=== PATIENT | female | born 1940 | race Caucasian/White ===

== ENCOUNTER 2020-07-26 11:18 | Observation (INO) | payer OTHER, MEDICARE ==
--- NOTE | 2020-07-26 12:15 | RAD REPORT ---
EXAM DESCRIPTION: CT - Head Brain Wo Cont - 07/26/2020 12:09 pm CLINICAL HISTORY: Double vision COMPARISON: None TECHNIQUE: Computed axial tomography of the head was obtained. IV contrast was not requested. All CT scans are performed using dose optimization technique as appropriate and may include automated exposure control or mA/KV adjustment according to patient size. FINDINGS: An intracranial bleed is not seen . The ventricles are normal in caliber. No extra-axial fluid collection is noted. Mild to moderate low-density areas within periventricular, deep and subcortical white matter likely r epresent ischemic changes secondary to small vessel disease. Fluid within the sinuses/ mastoids is not seen. IMPRESSION: No acute intracranial abnormality is seen. If patient's symptoms persist MRI of the bra in would be recommended.
[2020-07-26 15:54] LABS: Absolute Lymphocytes (CBC) 1.2 K/uL (0.7-4.9); Basophils % 0.9 % (0-1.3); Hematocrit 45.1 % (36.0-45.0); Lymphocytes % 19.6 % (15.3-44.8); MPV 8.4 fL (7.6-11.3); Protime INR 0.97; RBC Red Blood Cell Count 4.61 M/uL (3.86-4.86)
[2020-07-26 16:03] LABS: Albumin 3.9 g/dL (3.4-5.0); Bilirubin Direct 0.1 mg/dL (0-0.2); Bilirubin Total 0.4 mg/dL (0.2-1.0); C-Reactive Protein 5.14 mg/L (<3.00); Magnesium 2.5 mg/dL (1.8-2.4); Potassium 3.7 mmol/L (3.5-5.1); Protein, Total 7.8 g/dL (6.4-8.2)
--- NOTE | 2020-07-26 17:11 | EDPHYS ---
Physician Documentation [facility] Name: Rani Gonzáles Age: 80 yrs Sex: Female : 1940 Arrival Date: 07/26/2020 Time: 11:35 Bed 18 Private MD: Dayana Broderick ED Physician Lee Bowser HPI: 07/26 18:28 This 80 yrs old Female presents to ER via Ambulatory with complaints of jr8 Vision Problem - double. 18:28 Onset: The symptoms/episode began/occurred acutely, today, upon awakening this AM. jr8 Duration: the symptoms are continuous. Aggravated by nothing. Alleviated by nothing. Associated signs and symptoms: Pertinent positives: None. Patient wears glasses. Severity of symptoms: At their worst the symptoms were mild in the emergency department the symptoms are unchanged. The patient has not experienced similar symptoms in the past. The patient has not recently seen a physician. Historical: - Allergies: 11:56 Macrodantin; aa5 11:56 Ciprofloxacin; aa5 - PMHx: 11:56 Hypertension; Breast Cancer; Thyroid problem; aa5 - PSHx: 11:56 Breast biopsy; R lumpectomy; aa5 - Immunization history:: Adult Immunizations unknown. - Social history:: Smoking status: Patient denies any tobacco usage or history of. ROS: 18:28 Eyes: Negative for injury, pain, redness, and discharge, ENT: Negative for injury, jr8 pain, and discharge, Neck: Negative for injury, pain, and swelling, Cardiovascular: Negative for chest pain, palpitations, and edema, Respiratory: Negative for shortness of breath, cough, wheezing, and pleuritic chest pain, Abdomen/GI: Negative for abdominal pain, nausea, vomiting, diarrhea, and constipation, Back: Negative for injury and pain, MS/Extremity: Negative for injury and deformity, Skin: Negative for injury, rash, and discoloration. 18:28 Neuro: Positive for visual changes. Exam: 18:28 Visual Acuity: Visual acuity is within normal limits. jr8 18:28 Eyes: Pupils equal round and reactive to light, extra-ocular motions intact. Lids and lashes normal. Conjunctiva and sclera are non-icteric and not injected. Cornea within normal limits. Periorbital areas with no swelling, redness, or edema. ENT: Nares patent. No nasal discharge, no septal abnormalities noted. Tympanic membranes are normal and external auditory canals are clear. Oropharynx with no redness, swelling, or masses, exudates, or evidence of obstruction, uvula midline. Mucous membranes moist. Neck: Trachea midline, no thyromegaly or masses palpated, and no cervical lymphadenopathy. Supple, full range of motion without nuchal rigidity, or vertebral point tenderness. No Meningismus. Cardiovascular: Regular rate and rhythm with a normal S1 and S2. No gallops, murmurs, or rubs. Normal PMI, no JVD. No pulse deficits. Respiratory: Lungs have equal breath sounds bilaterally, clear to auscultation and percussion. No rales, rhonchi or wheezes noted. No increased work of breathing, no retractions or nasal flaring. Abdomen/GI: Soft, non-tender, with normal bowel sounds. No distension or tympany. No guarding or rebound. No evidence of tenderness throughout. Back: No spinal tenderness. No costovertebral tenderness. Full range of motion. Skin: Warm, dry with normal turgor. Normal color with no rashes, no lesions, and no evidence of cellulitis. MS/ Extremity: Pulses equal, no cyanosis. Neurovascular intact. Full, normal range of motion. 18:28 Neuro: Orientation: to person, place, time \\T\\ situation. Mentation: is normal, Memory: is normal, immediate memory is intact, recent memory is intact, remote memory is intact, Cranial nerves: CN I not tested, CN II- XII are normal as tested, visual mcguire are intact. lateral diplopia noted . extraocular movements are intact, Facial palsy and sensory deficits are absent. Nystagmus is absent. Speech is clear and appropriate. Cerebellar function: normal finger to nose testing, heel to balderas testing is normal, Motor: moves all fours, strength is 5/5 in all extremities, Sensation: no obvious gross deficits, seizure activity, is not displayed by the patient, Abnormal movements: there are no abnormal movements. Vital Signs: 11:54 BP 154 / 81; Pulse 80; Resp 18 S; Temp 97.6(TE); Pulse Ox 97% on R/A; Weight 68.04 kg aa5 (R); Height 5 ft. 6 in. (167.64 cm) (R); Pain 0/10; 15:45 BP 150 / 75; Pulse 88; Resp 16 S; Pulse Ox 97% on R/A; Pain 0/10; aa5 18:15 BP 146 / 66; Pulse 92; Resp 20 S; Pulse Ox 96% on R/A; ca1 19:15 BP 155 / 80; Pulse 94; Resp 16 S; Pulse Ox 96% on R/A; ca1 20:21 BP 145 / 82; Pulse 95; Resp 19 S; Pulse Ox 95% on R/A; ca1 11:54 Body Mass Index 24.21 (68.04 kg, 167.64 cm) aa5 MDM: 15:09 Patient medically screened. [facility] 18:32 Data reviewed: vital signs, nurses notes, lab test result(s), EKG, radiologic studies, [facility] CT scan. Data interpreted: Pulse oximetry: on room air is 96 %. Interpretation: normal. Counseling: I had a detailed discussion with the patient and/or guardian regarding: the historical points, exam findings, and any diagnostic results supporting the discharge/admit diagnosis, lab results, radiology results, the need for further work-up and treatment in the hospital. ED course: Dr. Valentine Consulted and agrees with plan . 07/26 15:08 Order name: Basic Metabolic Panel [facility] 07/26 15:08 Order name: CBC with Diff [facility] 07/26 15:08 Order name: LFT's [facility] 07/26 15:08 Order name: Magnesium [facility] 07/26 15:08 Order name: PT-INR [facility] 07/26 15:08 Order name: ESR [facility] 07/26 15:08 Order name: CRP; Complete Time: 16:39 [facility] 07/26 15:09 Order name: Basic Metabolic Panel; Complete Time: 16:39 EDMS 07/26 15:09 Order name: CBC with Automated Diff; Complete Time: 17:34 EDMS 07/26 15:09 Order name: Liver (Hepatic) Function; Complete Time: 16:39 EDMS 07/26 15:09 Order name: Magnesium; Complete Time: 16:39 EDMS 07/26 15:09 Order name: Protime (+INR); Complete Time: 16:39 EDMS 07/26 15:09 Order name: Sedimentation Rate, Westergren; Complete Time: 17:34 EDMS 07/26 18:52 Order name: COVID-19 : Document "Date of Symptom Onset" if Symptomatic. [facility] 07/26 11:57 Order name: CT Head Brain wo Cont; Complete Time: 15:07 aa5 07/26 15:08 Order name: EKG; Complete Time: 15:10 8 07/26 15:08 Order name: Cardiac monitoring; Complete Time: 15:58 8 07/26 15:08 Order name: EKG - Nurse/Tech; Complete Time: 15:58 8 07/26 15:08 Order name: IV Saline Lock; Complete Time: 15:39 jr8 07/26 15:08 Order name: Labs collected and sent; Complete Time: 15:39 [facility] 07/26 15:08 Order name: O2 Per Protocol; Complete Time: 15:40 8 07/26 15:08 Order name: O2 Sat Monitoring; Complete Time: 15:40 [facility] 07/26 19:23 Order name: CORONAVIRUS EDIA 07/26 20:38 Order name: SARS-COV-2 RT PCR; Complete Time: 21:22 EDMS Administered Medications: No medications were administered Disposition: 07/26/20 17:10 Hospitalization ordered by Attila Mancia for Observation. Preliminary diagnosis are Encounter for examination of eyes and vision with abnormal findings, Diplopia. - Bed requested for Telemetry/MedSurg (observation). - Status is Observation. ca1 - Condition is Stable. - Problem is new. - Symptoms are unchanged. Addendum: 07/28/2020 07:15 Co-signature as Attending Physician, Lee Bowser MD I agree with the assessment and k dr plan of care. Signatures: Dispatcher [employer] [facility] Lee Bowser MD MD [facility] Leana Bolanos, RN RN aa5 Young Oswald PA PA jr8 Griselda Meadows RN RN tl1 Deloris Garrett RN RN ca1 Corrections: (The following items were deleted from the chart) 07/26 18:23 17:10 Hospitalization Ordered by Red Menendez MD for Observation. Preliminary jr8 diagnosis is Encounter for examination of eyes and vision with abnormal findings; Diplopia. Bed requested for Telemetry/MedSurg (observation). Status is Observation. Condition is Stable. Problem is new. Symptoms are unchanged. jr8 20:45 18:23 07/26/2020 17:10 Hospitalization Ordered by Attila Mancia for Observation. tl1 Preliminary diagnosis is Encounter for examination of eyes and vision with abnormal findings; Diplopia. Bed requested for Telemetry/MedSurg (observation). Status is Observation. Condition is Stable. Problem is new. Symptoms are unchanged. jr8 21:33 20:45 07/26/2020 17:10 Hospitalization Ordered by Attila Mancia for Observation. ca1 Preliminary diagnosis is Encounter for examination of eyes and vision with abnormal findings; Diplopia. Bed requested for Telemetry/MedSurg (observation). Status is Observation. Condition is Stable. Problem is new. Symptoms are unchanged. tl1
--- NOTE | 2020-07-26 17:11 | ER ---
Nurse's Notes [facility] Name: Rani Gonzáles Age: 80 yrs Sex: Female : 1940 Arrival Date: 07/26/2020 Time: 11:35 Bed 18 Private MD: Dayana Broderick Diagnosis: Encounter for examination of eyes and vision with abnormal findings;Diplopia Presentation: 07/26 11:53 Chief complaint: Patient states: double vision that began this morning, pt states "I aa5 woke up with it". Pt denies any other symptoms. Coronavirus screen: Client denies travel out of the [place] in the last 14 days. Ebola Screen: Patient negative for fever greater than or equal to 101.5 degrees Fahrenheit, and additional compatible Ebola Virus Disease symptoms. Initial Sepsis Screen: Does the patient meet any 2 criteria? No. Patient's initial sepsis screen is negative. Does the patient have a suspected source of infection? No. Patient's initial sepsis screen is negative. Risk Assessment: Do you want to hurt yourself or someone else? Patient reports no desire to harm self or others. Onset of symptoms was July 2020. 11:53 Method Of Arrival: Ambulatory aa5 11:53 Acuity: RIKKI 3 aa5 Triage Assessment: 12:00 General: Appears comfortable, Behavior is calm, cooperative. Pain: Denies pain. EENT: aa5 No deficits noted. Neuro: Level of Consciousness is awake, alert, obeys commands, Oriented to person, place, time, situation, Weighmaster Lead are equal bilaterally Moves all extremities. Gait is steady, Facial symmetry appears normal, Pupils are PERRLA, Reports diplopia, Denies weakness dizziness, paresthesias headache. Cardiovascular: Heart tones S1 S2 present Rhythm is sinus rhythm with unifocal PVCs. Respiratory: Airway is patent Respiratory effort is even, unlabored, Respiratory pattern is regular, symmetrical. GI: Abdomen is round non-distended, Patient currently denies diarrhea, nausea, vomiting. : No signs and/or symptoms were reported regarding the genitourinary system. Derm: Skin is pink, warm \\T\\ dry. Musculoskeletal: Range of motion: intact in all extremities. Historical: - Allergies: 11:56 Macrodantin; aa5 11:56 Ciprofloxacin; aa5 - PMHx: 11:56 Hypertension; Breast Cancer; Thyroid problem; aa5 - PSHx: 11:56 Breast biopsy; R lumpectomy; aa5 - Immunization history:: Adult Immunizations unknown. - Social history:: Smoking status: Patient denies any tobacco usage or history of. Screenin:20 Abuse screen: Denies threats or abuse. Denies injuries from another. Nutritional ca1 screening: No deficits noted. Tuberculosis screening: No symptoms or risk factors identified. Fall Risk IV access (20 points). Assessment: 14:55 Reassessment: See triage note. No changes from triage, pt reports double vision is aa5 unchanged. . 15:35 Reassessment: Patient is alert, oriented x 3, equal unlabored respirations, skin aa5 warm/dry/pink. 17:00 Reassessment: Patient is alert, oriented x 3, equal unlabored respirations, skin aa5 warm/dry/pink. Awaiting for MRI, pt notified of wait time, approximately around 1800 today. . 18:25 Reassessment: Report given to EDMAR Puentes. aa 18:27 Reassessment: Patient appears in no apparent distress at this time. Patient and/or ca1 family updated on plan of care and expected duration. Pain level reassessed. Patient is alert, oriented x 3, equal unlabored respirations, skin warm/dry/pink. 19:26 Reassessment: Patient appears in no apparent distress at this time. Patient and/or ca1 family updated on plan of care and expected duration. Pain level reassessed. Patient is alert, oriented x 3, equal unlabored respirations, skin warm/dry/pink. 20:21 Reassessment: Patient appears in no apparent distress at this time. Patient and/or ca1 family updated on plan of care and expected duration. Pain level reassessed. Patient is alert, oriented x 3, equal unlabored respirations, skin warm/dry/pink. 20:46 Reassessment: called for report, nurse will call back. ca1 Vital Signs: 11:54 BP 154 / 81; Pulse 80; Resp 18 S; Temp 97.6(TE); Pulse Ox 97% on R/A; Weight 68.04 kg aa5 (R); Height 5 ft. 6 in. (167.64 cm) (R); Pain 0/10; 15:45 BP 150 / 75; Pulse 88; Resp 16 S; Pulse Ox 97% on R/A; Pain 0/10; aa5 18:15 BP 146 / 66; Pulse 92; Resp 20 S; Pulse Ox 96% on R/A; ca1 19:15 BP 155 / 80; Pulse 94; Resp 16 S; Pulse Ox 96% on R/A; ca1 20:21 BP 145 / 82; Pulse 95; Resp 19 S; Pulse Ox 95% on R/A; ca1 11:54 Body Mass Index 24.21 (68.04 kg, 167.64 cm) aa5 ED Course: 11:35 Patient arrived in ED. am2 11:36 Dayana Broderick is Private Physician. am2 11:52 Arm band placed on. aa5 11:54 Triage completed. aa5 12:00 Patient placed in waiting room, Patient notified of wait time. aa5 12:09 CT Head Brain wo Cont In Process Unspecified. EDMS 14:56 Leana Bolanos RN is Primary Nurse. aa5 15:07 Young Oswald PA is PHCP. jr8 15:07 Lee Bowser MD is Attending Physician. jr8 15:35 Initial lab(s) drawn, by nm, sent to lab. Inserted saline lock: 20 gauge in left aa5 antecubital area, using aseptic technique. Blood collected. 17:09 Red Menendez MD is Hospitalizing Provider. jr8 18:20 Patient has correct armband on for positive identification. Placed in gown. Bed in low ca1 position. Call light in reach. Side rails up X2. patient monitor on. Pulse ox on. NIBP on. Door closed. Noise minimized. Lights dimmed. Warm blanket given. 18:23 Attila Mancia is Hospitalizing Provider. jr8 19:22 COVID-19 : Document "Date of Symptom Onset" if Symptomatic. Sent. ca1 20:46 No provider procedures requiring assistance completed. Patient admitted, IV remains in ca1 place. Administered Medications: No medications were administered Outcome: 17:10 Decision to Hospitalize by Provider. jr8 20:46 Condition: stable ca1 20:46 Instructed on the need for admit. 21:11 Admitted to Med/surg accompanied by tech, via wheelchair, room 231, with chart, Report ca1 called to EDMAR Torre 21:33 Patient left the ED. ca1 Signatures: Dispatcher [employer] Leana Mancia, RN RN aa5 Young Oswald PA PA jr8 Petra Infante am2 Deloris Garrett RN RN ca1
[2020-07-26] MEDS ORDERED: ACETAMINOPHEN 500 MG TAB PO PRN (21:30)
[2020-07-26] MEDS ORDERED: ONDANSETRON 4 MG/2 ML VIAL IV PRN (21:30)
[2020-07-26 21:43] VITALS: BMI 23.2
[2020-07-26 22:50] LABS: Thyroid Stimulating Hormone 7.64 uIU/mL (0.360-3.740)
--- NOTE | 2020-07-27 01:29 | P.HP ---
Certification for Inpatient Patient admitted to: Observation With expected LOS: <2 Midnights Patient will require the following post-hospital care: None Practitioner: I am a practitioner with admitting privileges, knowledge of patient current condition, hospital course, and medical plan of care. Services: Services provided to patient in accordance with Admission requirements found in Title 42 Section 412.3 of the Code of Federal Regulations <James Grande Angie - Last Filed: 07/27/20 01:24> Patient History Date of Service: 07/26/20 Primary Care Provider: Omari Reason for admission: double vision History of Present Illness: Ms. Gonzáles is an 80 yo F with HTN, hypothyroidism, COPD, history of breast canc er here today because she woke up this morning with double vision. She says there was no improvement with wearing her glasses. She denies systemic symptoms, weakness, dysphasia or dysarthria, headache, stiffness, claudication, night sweats, chills, cough, dizziness, tinnitus, pain with mastication, or difficulty with her balance. She says she has to walk more carefully and is currently seeing double. CT Head was wnl. ESR wnl. CRP 5.14. Home medications list reviewed: Yes - Past Medical/Surgical History Has patient received pneumonia vaccine in the past: Yes Diabetic: No -: BREAST CA; -: TACHYCARDIA -: High blood pressure -: Hypothyroidism -: Mild COPD -: Hemachromatosis -: BREAST BIOPSY -: Right breast lumpectomy -: Gallbladder removal - Family History Brother -: Heart disease, Lung disease, Diabetes, Cancer Notes: Lung Ca, Myasthenia Gravis Father -: Lung disease, Cancer Notes: Lung Ca - Social History Smoking Status: Never smoker Alcohol use: No CD- Drugs: No Caffeine use: Yes Place of Residence: Home <James Grande - Last Filed: 07/27/20 01:24> Date of Service: 07/28/20 <marvin lea - Last Filed: 07/28/20 18:36> Allergies ciprofloxacin Allergy (Verified 07/26/20 22:31) seecom nitrofurantoin macrocrystal [From Macrodantin] Allergy (Verified 06/11/15 23:54) Nausea/Vomiting Home Medications: Verapamil HCl [Calan] 240 mg PO DAILY 08/21/11 Acetaminophen with Codeine [Acetaminophen-Cod #4 Tablet] 1 each PO PRN PRN 07/26/20 Amlodipine [Norvasc*] 5 mg PO DAILY 07/26/20 Anastrozole 1 mg PO DAILY 07/26/20 Levothyroxine [Synthroid*] 112 mcg PO [id number] 07/26/20 Venlafaxine HCl [Venlafaxine HCl ER] 75 mg PO DAILY 07/26/20 hydroCHLOROthiazide [Hydrochlorothiazide] 25 mg PO Q48H 07/26/20 predniSONE [Deltasone] 20 mg PO DAILY #50 tab 07/27/20 Review of Systems General: Unremarkable Eyes: Vision Change, As per HPI ENT: Unremarkable Respiratory: Unremarkable Cardiovascular: Unremarkable Gastrointestinal: Unremarkable Genitourinary: Unremarkable Musculoskeletal: Unremarkable Integumentary: Unremarkable Neurological: Unremarkable Lymphatics: Unremarkable <James Grande - Last Filed: 07/27/20 01:24> Physical Examination - Vital Signs Temperature: 97.7 F Blood Pressure: 184/94 Pulse: 88 Respirations: 18 Pulse Ox (%): 94 - Physical Exam General: Alert, In no apparent distress, Oriented x3, Cooperative HEENT: Atraumatic, Normocephalic, PERRLA, Mucous membr. moist/pink, Other (EOM intact, no nystagmus, no dizziness or vertigo with movement, no tenderness over temporal artery), EOMI, Sclerae nonicteric Neck: Supple, 2+ carotid pulse no bruit, JVD not distended, No Thyromegaly, No LAD Respiratory: Clear to auscultation bilaterally, Normal air movement Cardiovascular: No edema, Normal pulses, Regular rate/rhythm, Normal S1 S2, No gallops, No rubs, No murmurs Capillary refill: <2 Seconds Gastrointestinal: Normal bowel sounds, Soft and benign, Non-distended, No ascites, No tenderness, No masses, No rebound, No guarding Musculoskeletal: No clubbing, No swelling, No contractures, No erythema, No tenderness, No warmth Integumentary: No rashes, No breakdown, No significant lesion, No tenderness/swelling, No erythema, No warmth, No cyanosis Neurological: Normal speech, Normal strength at 5/5 x4 extr, Normal tone, Sensation intact, Cranial nerves 3-12 intact, Normal affect Lymphatics: No axilla or inguinal lymphadenopathy - Studies Laboratory Data (last 24 hrs) 07/26/20 15:35: PT 11.2, INR 0.97 07/26/20 15:35: WBC 6.10, Hgb 15.1 H, Hct 45.1 H, Plt Count 176 07/26/20 15:35: Sodium 139, Potassium 3.7, BUN 19 H, Creatinine 0.91, Glucose 91, Magnesium 2.5 H, Total Bilirubin 0.4, AST 13 L, ALT 19, Alkaline Phosphatase 76 <James Grande - Last Filed: 07/27/20 01:24> Assessment and Plan - Problems (Diagnosis) (1) Hypertension Status: Chronic Qualifiers: Hypertension type: essential hypertension Qualified Code(s): I10 - Essent ial (primary) hypertension (2) Hypothyroidism Status: Chronic Qualifiers: Hypothyroidism type: unspecified Qualified Code(s): E03.9 - Hypothyroidism, unspecified (3) HX: breast cancer Status: Chronic (4) COPD (chronic obstructive pulmonary disease) Status: Chronic Qualifiers: COPD type: unspecified COPD Qualified Code(s): J44.9 - Chronic obstructive pulmonary disease, unspecified (5) Double vision Status: Acute - Plan neurology consulted MRI and MRA Head scheduled for the morning ESR wnl, CRP 5.14 will reconcile and continue home medications Discharge Plan: Home Plan to discharge in: 24 Hours - Advance Directives Does patient have a Living Will: Yes Does patient have a Durable POA for Healthcare: Yes - Code Status/Comfort Care Code Status Assessed: Yes (full code) Critical Care: No Time Spent Managing Pts Care (In Minutes): 70 <James Grande - Last Filed: 07/27/20 01:24> - Problems (Diagnosis) (1) Double vision Status: Acute (2) COPD (chronic obstructive pulmonary disease) Status: Chronic Qualifiers: COPD type: unspecified COPD Qualified Code(s): J44.9 - Chronic obstructive pulmonary disease, unspecified (3) Hypertension Status: Chronic Qualifiers: Hypertension type: essential hypertension Qualified Code(s): I10 - Essential (primary) hypertension (4) Hypothyroidism Status: Chronic Qualifiers: Hypothyroidism type: unspecified Qualified Code(s): E03.9 - Hypothyroidism, unspecified Physician Review: Patient Assessed, Agree with Above Assessment and Plan Physician Review Additional Text: Double vision Plan: MRI of the brain to r/o CVA. Neurology consult. <marvin lea - Last Filed: 07/28/20 18:36>
[2020-07-27] MEDS ORDERED: hydroCHLOROthiazide 25 MG TAB PO SCH ×2 (02:00→09:00)
[2020-07-27 04:00] LABS: Urine Appearance CLEAR (Clear); Urine Bilirubin NEGATIVE (Negataive); Urine Blood NEGATIVE (Negative); Urine Color YELLOW (Yellow); Urine Glucose NEGATIVE (Negative); Urine Protein NEGATIVE (Negative); Urine Urobilinogen 0.2 mg/dL (0.2-1.0); Urine pH 7.5 (5.0-7.0)
[2020-07-27 04:06] LABS: Urine Microscopic Reflex NO UMIC
[2020-07-27 05:49] LABS: Absolute Lymphocytes (CBC) 0.8 K/uL (0.7-4.9); Basophils % 0.7 % (0-1.3); Hematocrit 42.3 % (36.0-45.0); Lymphocytes % 13.1 % (15.3-44.8); MPV 8.3 fL (7.6-11.3); RBC Red Blood Cell Count 4.34 M/uL (3.86-4.86)
[2020-07-27] MEDS ORDERED: LEVOTHYROXINE SOD 0.112 MG TAB PO SCH (06:00)
[2020-07-27 06:07] LABS: Albumin 3.4 g/dL (3.4-5.0); Bilirubin Total 0.4 mg/dL (0.2-1.0); Magnesium 2.4 mg/dL (1.8-2.4); Phosphorus 2.1 mg/dL (2.5-4.9); Potassium 3.6 mmol/L (3.5-5.1); Protein, Total 6.8 g/dL (6.4-8.2)
[2020-07-27] MEDS ORDERED: POTASSIUM 25 MEQ EFFERV TAB PO ONE (06:32)
[2020-07-27] MEDS: POTASS/SODIUM PHOSPHATE 1 PKT POWD.PACK PO SCH ×3 (08:10→11:33)
--- NOTE | 2020-07-27 08:38 | RAD REPORT ---
EXAM DESCRIPTION: MRI - Brain Wo Cont - 07/27/2020 7:04 am CLINICAL HISTORY: double vision, stroke-like symptoms COMPARISON: Head Brain Wo Cont dated 07/26/2020 TECHNIQUE: Sagittal T1-weighted images were obtained along with axial PD, heavily T2-weighted and T2 -FLAIR images. Axial DWI and ADC mapping sequences were also obtained along with coronal heavily T2-w eighted images. FINDINGS: No intracranial hemorrhage, mass or acute infarction. There is no edema or shift of midlin e structures. No extra-axial fluid collections. Cabezas-matter/white matter junction is preserved. Signa l voids are seen as a normal finding in the major intracranial vessels. No significant cerebellum atrophy. Cerebral hemispheres show moderate volume loss. Ventricles are in proportion. Numerous T2 signal abnormalities are scattered in the cerebral white matter typical for a mild to moderate chronic ischemic etiology. Chronic ischemic changes seen in the brainstem. Basal ga nglia and thalamus tissues are generally spared. Mastoid air cells and paranasal sinuses are clear. No globe or orbital content acute finding. Patient has pronounced hyperostosis frontalis interna. This is a normal variant. IMPRESSION: No infarction changes seen. No mass, hemorrhage or acute intracranial finding identified . Moderate atrophy and mild to moderate chronic ischemic change present.
--- NOTE | 2020-07-27 08:41 | RAD REPORT ---
EXAM DESCRIPTION: MRI - MRA Head Wo Cont - 07/27/2020 7:04 am CLINICAL HISTORY: CVA, double vision COMPARISON: MRI brain same date, CT head July 22 TECHNIQUE: Axial and coronal 3D [id number] image acquisition was performed. 3D rotational images were generated with source and reconstruction images reviewed. Horizontal and vertical axis rotation al views generated using MIP protocol. FINDINGS: No aneurysm or vascular malformation identifiable. Basilar artery is quite tortuous but ot herwise unremarkable. Mild to moderate atherosclerotic changes are seen in the far peripheral branche s of the bilateral anterior cerebral and middle cerebral artery distributions. Similar disease seen i n the posterior cerebral arteries. Patient has a large left posterior communicating artery providing the majority of the flow to the left DIAMOND EXPERT. No dissection change. No named branch occlusion. IMPRESSION: Intracranial atherosclerotic changes are present but no named branch occlusion or high-g rade stenosis identifiable.
[2020-07-27] MEDS ORDERED: VENLAFAXINE HCL XR 75 MG CAP PO SCH (09:00)
[2020-07-27] MEDS ORDERED: ANASTROZOLE 1 MG TAB PO SCH (09:00)
[2020-07-27] MEDS ORDERED: AMLODIPINE 5 MG TAB PO SCH (09:00)
[2020-07-27] MEDS ORDERED: VERAPAMIL HCL 120 MG TAB PO SCH (09:00)
[2020-07-27 09:42] VITALS: O2SAT 91
[2020-07-27 12:30] VITALS: BP 127/67; TEMP 97.6
--- NOTE | 2020-07-27 12:47 | EKG ---
Test Date: 2020-07-26 Test Time: 15:50:05 Machine Wedger: KEVIN MEASUREMENT RESULTS: Intervals: Rate: 92 MO: 160 QRSD: 76 QT: 464 QTc: 573 [place]: P: 19 MO: 160 QRS: 18 T: 81 INTERPRETIVE STATEMENTS: Sinus rhythm with premature supraventricular complexes with occasional premature ventricular complexes Moderate voltage criteria for LVH, may be normal variant Possible Inferior infarct, age undetermined Prolonged QT Abnormal ECG Compared to ECG 06/11/2015 17:46:14 Atrial premature complex(es) now present Ventricular premature complex(es) now present Prolonged QT interval now present ST (T wave) deviation no longer present Possible ischemia no longer present Myocardial infarct finding still present Electronically Signed On 07-27-20 12:45:31 CDT by Vineet Goel
--- NOTE | 2020-07-27 13:50 | CON ---
Reason For Consultation: Consultation called by Dr. Mancia, the hospitalist because of double vision and possible stroke. History Of Present Illness: Ms. Gonzáles is an 80-year-old right-handed patient, hypertensio n, hypothyroidism, COPD, breast cancer, and she actually recently received a second COVID shot 1 week ago. She said she woke up yesterday morning and noted double vision. She actually had an eye exam recently and was to get new glasses and has not yet got new glasses and thought perhaps that was a co ntributing factor. However, the patient did not improve. She kept seeing double and had some diffic ulty walking because of her diplopia. It did occur more to the right than the left. At [facility], she was found to be out of any window for possible tPA given that it occurred after she woke up and that was the night before and she got there around midday to the hospital. Had a head CT sca n that was negative for any acute ischemic or hemorrhagic change. She was admitted for a possible st roke workup. Her brain MRI done today showed no acute ischemic or hemorrhagic change. MRA of the br ain showed no significant abnormalities in the wiyot of [place]. Her blood work showed essentially a n unremarkable complete blood count with differential. Coagulation panel was normal. Chemistries re markable for mild dehydration. Her thyroid-stimulating hormone level was elevated at 7.64. Liver fu nction studies unremarkable. Urinalysis was negative. COVID-19 negative. Allergies: CIPROFLOXACIN, NITROFURANTOIN. Home Medications: Verapamil 240 mg daily, Tylenol No.4 one every 4 hours as needed, Norvasc 5 mg erica ly, anastrozole 1 mg daily, Synthroid 112 mcg daily, venlafaxine 75 mg daily, hydrochlorothiazide 25 mg 1 every 2 days. Surgical History: Right breast lumpectomy and cholecystectomy. Family History: Heart disease, lung disease, diabetes and cancer along with myasthenia gravis in bro ther and father with lung disease and cancer. Social History: No current alcohol use. No tobacco use and no IV drug use. Review of Systems: Aside from mentioned, she denies any fevers, chills, nausea, vomiting, myalgias, or arthralgias. No rash, headache, weight change. No psychiatric complaints. No genitourinary or gastrointestinal comp laints. Physical Examination: Vital Signs: Blood pressure 151/92, pulse 74, respiratory rate 14, temperature 97.8, oxygen saturati on 91% on room air. Weight 144 pounds, height 5 feet 6 inches, BMI 23.3. General: Ms. Gonzáles is lying in bed, in no acute distress. HEENT: She is normocephalic, atraumatic. Sclerae anicteric. Oropharynx is moist and pink. Neck: Supple. Chest: Clear. Heart: Regular. Extremities: Show no edema, cyanosis, or clubbing. Neurological: She is alert and oriented to person, place, time, and situation. On cranial nerve exa mination, she has a right lateral rectus palsy. She sees double vision when looking to the right and when covering the right eye, the outer image goes away consistent with a right lateral rectus palsy. She has a resolution of diplopia when looking to the left and no significant diplopia up or down. Otherwise, her cranial nerves 2 through 12 are intact. Motor examination is full strength in upper a nd lower extremities at 5/5. Sensation, mild stocking-glove loss in the arms and legs. Reflexes dep ressed, but symmetric in upper and lower extremities. Coordination is intact in upper and lower extr emities. Gait, she has good stance, stride, and arm swing, slightly unsteady due to the diplopia whe n ambulating. She can ambulate with just standby assistance over 250 feet with no difficulty. Assessment: Ms. Gonzáles is an 80-year-old patient with a right lateral rectus palsy 1 week after rece iving the second COVID shot. She also has a history of breast cancer, reported allergies and hypothy roidism. She does not have diabetes mellitus. It is unclear the etiology of her right lateral rectu s palsy. It is possible it is an autoimmune mediated phenomena, perhaps after receiving the COVID sh ot. Plan: 1.She may be given steroids on a tapering course starting at 20 mg daily and taper over 2 weeks. Flor rothman should have aggressive management of her hypertension. Also, her thyroid-stimulating hormone level is elevated that may be fully evaluated with a thyroid panel and treated appropriately. She may nee d an adjustment of her thyroid dosage. 2.She may be discharged home today and call Dr. Valentine's clinic on Thursday for a followup appointme nt within a month. LB/MODL Voice ID: [id number] Report ID: [id number]
--- NOTE | 2020-07-27 14:47 | P.DS ---
Admission Date: 07/26/20 Discharge Date: 07/27/20 Primary Care Provider: Omari Disposition: ROUTINE DISCHARGE Discharge Condition: FAIR Reason for Admission: double vision Consultations: Neurology-Dr. Valentine - Problems (1) Double vision Current Visit: Yes Status: Acute (2) COPD (chronic obstructive pulmonary disease) Current Visit: Yes Status: Chronic Qualifiers: COPD type: unspecified COPD Qualified Code(s): J44.9 - Chronic obstructive pulmonary disease, unspecified (3) Hypertension Current Visit: Yes Status: Chronic Qualifiers: Hypertension type: essential hypertension Qualified Code(s): I10 - Essential (primary) hypertension (4) Hypothyroidism Current Visit: Yes Status: Chronic Qualifiers: Hypothyroidism type: unspecified Qualified Code(s): E03.9 - Hypothyroidism, unspecified Brief History of Present Illness: 80 yo F with HTN, hypothyroidism, COPD, history of breast cancer presented to the ED because of sudden onset of double vision which did not correct with her glasses. She denied any fever or chills, weakness, dysphasia or dysarthria, headache or neck stiffness, or claudication, night sweats, dizziness, tinnitus, pain with mastication. She says she has to walk more carefully because of the double vision. CT Head was wnl. ESR wnl. CRP 5.14. Patient was hospitalized for stroke rule out. Hospital Course: Patient placed under observation. MRI of the brain, MRA of the head and neck done were all unremarkable. No acute CVA. She was seen and evaluated by Dr. Valentine-neurology who made the diagnosis of right lateral rectus palsy and suspect possible autoimmune reaction. Noted patient had her COVID 19 vaccination recently and per neurology, the extraocular muscle weakness could be related the vaccine. Dr. Valentine recommended a tapering dose of prednisone and deemed the patient stable for discharge. TSH was slightly elevated. Patient to follow with her PCP for full workup and Synthroid dose adjustment. Vital Signs/Physical Exam: Temp Pulse Resp BP Pulse Ox 97.6 F 74 17 127/67 94 07/27/20 12:00 07/27/20 12:00 07/27/20 12:00 07/27/20 12:00 07/27/20 12:00 General: Alert, In no apparent distress, Oriented x3 HEENT: Normocephalic Neck: Supple, JVD not distended Respiratory: Clear to auscultation bilaterally, Normal air movement Cardiovascular: No edema, Regular rate/rhythm, Normal S1 S2 Gastrointestinal: Soft and benign, Non-distended Musculoskeletal: No swelling Integumentary: No rashes Neurological: Normal strength at 5/5 x4 extr, Cranial nerves 3-12 intact Laboratory Data at Discharge: WBC 5.80 K/uL (4.3-10.9) 07/27/20 05:28 Hgb 14.5 g/dL (12.0-15.0) 07/27/20 05:28 Hct 42.3 % (36.0-45.0) 07/27/20 05:28 Plt Count 165 K/uL (152-406) 07/27/20 05:28 PT 11.2 SECONDS (9.5-12.5) 07/26/20 15:35 INR 0.97 07/26/20 15:35 Sodium 142 mmol/L (136-145) 07/27/20 05:28 Potassium 3.6 mmol/L (3.5-5.1) 07/27/20 05:28 BUN 15 mg/dL (7-18) 07/27/20 05:28 Creatinine 0.76 mg/dL (0.55-1.3) 07/27/20 05:28 Glucose 98 mg/dL (74-106) 07/27/20 05:28 Phosphorus 2.1 mg/dL (2.5-4.9) L 07/27/20 05:28 Magnesium 2.4 mg/dL (1.8-2.4) 07/27/20 05:28 Total Bilirubin 0.4 mg/dL (0.2-1.0) 07/27/20 05:28 AST 12 U/L (15-37) L 07/27/20 05:28 ALT 17 U/L (12-78) 07/27/20 05:28 Alkaline Phosphatase 67 U/L (45-117) 07/27/20 05:28 Home Medications: Verapamil HCl [Calan] 240 mg PO DAILY 08/21/11 Acetaminophen with Codeine [Acetaminophen-Cod #4 Tablet] 1 each PO PRN PRN 0 07/26/20 Amlodipine [Norvasc*] 5 mg PO DAILY 07/26/20 Anastrozole 1 mg PO DAILY 07/26/20 Levothyroxine [Synthroid*] 112 mcg PO [id number] 07/26/20 Venlafaxine HCl [Venlafaxine HCl ER] 75 mg PO DAILY 07/26/20 hydroCHLOROthiazide [Hydrochlorothiazide] 25 mg PO Q48H 07/26/20 predniSONE [Deltasone] 20 mg PO DAILY #50 tab 07/27/20 New Medications: predniSONE [Deltasone] 20 mg PO DAILY #50 tab Diet: AHA Activity: Fall precautions Followup: Dayana Ruff PAC [Primary Care Provider] - 1-2 Weeks Nile Valentine MD [ASSOCIATE-ACTIVE - CAN ADMIT] - (within 2 weeks.)
== END 2020-07-27 16:20 | disposition home or self-care (01) ==
LOC: ER 11:18 → ERHOLD 20:44 → 2ND 21:12
PROVIDERS: ADMIT Internal Medicine; ATTEND Internal Medicine
DX: H53.2 Diplopia (principal); J44.9 Chronic obstructive pulmonary disease, unspecified; I10 Essential (primary) hypertension; E03.9 Hypothyroidism, unspecified; Z85.3 Personal history of malignant neoplasm of breast; E83.119 Hemochromatosis, unspecified; Z20.822 Contact with and (suspected) exposure to COVID-19; R94.31 Abnormal electrocardiogram [ECG] [EKG]
CPT/HCPCS: 93005; 85025 ×2; 80048; 36415; 83735 ×2; 84100; 85610; 80076; 85652; 84443; 81003; 84439; 80053; 86140; 70450; 70551; 70544; 97162; 94760; 99285; U0003; G0378

== ENCOUNTER 2021-01-18 11:10 | Inpatient (IN) | payer OTHER, MEDICARE ==
[2021-01-18 12:16] LABS: Absolute Lymphocytes (CBC) 0.8 K/uL (0.7-4.9); Basophils % 0.1 % (0-1.3); Hematocrit 41.2 % (36.0-45.0); Lymphocytes % 6.3 % (15.3-44.8); MPV 7.8 fL (7.6-11.3); RBC Red Blood Cell Count 4.23 M/uL (3.86-4.86)
[2021-01-18 12:22] LABS: Protime INR 1.15
--- NOTE | 2021-01-18 12:26 | RAD REPORT ---
EXAM DESCRIPTION: RAD - Chest Single View - 01/18/2021 12:18 pm CLINICAL HISTORY: Cough;Dyspnea COMPARISON: Chest Pa And Lat (2 Views) dated 11/25/2017; CHEST SINGLE VIEW dated 06/12/2015; CHEST SING LE VIEW dated 08/22/2011 FINDINGS: Lines: None. Lungs: Worsened multifocal airspace disease, more confluent in the left mid lung. In particular, ther e is a masslike opacity in the left mid lung measuring approximately 2.1 cm. Pleural: No significant pleural effusions or pneumothorax. Cardiac: Cardiomegaly. Bones: No acute fractures. Other: Surgical clips in the right axilla. IMPRESSION: Increasing bilateral airspace disease concerning for multifocal pneumonia. Recommend fol low up chest radiography to ensure resolution of a more masslike left mid lung opacity.
[2021-01-18 12:34] LABS: Albumin 3.4 g/dL (3.4-5.0); Bilirubin Direct 0.3 mg/dL (0-0.2); Protein, Total 7.8 g/dL (6.4-8.2); Troponin (Emerg Dept Use Only) 0.13 ng/mL (0.0-0.045)
[2021-01-18 12:35] LABS: Potassium 2.8 mmol/L (3.5-5.1)
[2021-01-18] MEDS ORDERED: LEVALBUTEROL 1.25 MG/3 ML NEB ONE (12:49)
[2021-01-18] MEDS ORDERED: METHYLPREDNISOLONE 125 MG INJ ONE (12:49)
[2021-01-18] MEDS ORDERED: NA CHLORIDE 0.9% 500 ML ONE (12:50)
[2021-01-18] MEDS ORDERED: MAGNESIUM SULFATE 1 gm IVPB 1 GM/100 ML BAG IV ONE (12:50)
[2021-01-18] MEDS ORDERED: NA CHLORIDE 0.9% 100 ML ONE (14:01)
[2021-01-18] MEDS ORDERED: PIPERACIL/TAZO 3.375 GM VIAL IV ONE (14:02)
--- NOTE | 2021-01-18 15:12 | ER ---
Nurse's Notes [facility] Name: Rani Gonzáles Age: 80 yrs Sex: Female : 1940 Arrival Date: 01/18/2021 Time: 11:12 Bed 18 Private MD: Vineet Goel S; Garrison, Sabrina Diagnosis: Pneumonia, unspecified organism-Multifocal;Hypoxemia;Sepsis, unspecified organism Presentation: 01/18 11:18 Chief complaint: Patient states: Cough, congestion, SOB, fever since Thursday night. ll1 Went to [place] today, was found to have low oxygen, so they declined to see her. She came here for eval. Coronavirus screen: Vaccine status: Patient reports receiving the 2nd dose of the covid vaccine. Client denies travel out of the [place] in the last 14 days. congestion, cough unrelated to allergies, difficulty breathing, fatigue, fever, nausea, shortness of breath, sore throat, loss of taste or smell, Client presents with at least one sign or symptom that may indicate coronavirus-19. Standard/surgical mask placed on the client. Ebola Screen: Patient denies travel to an Ebola-affected area in the 21 days before illness onset. Initial Sepsis Screen: Does the patient meet any 2 criteria? RR > 20 per min. HR > 90 bpm. No. Patient's initial sepsis screen is negative. Does the patient have a suspected source of infection? Yes: Productive cough/pneumonia. Risk Assessment: Do you want to hurt yourself or someone else? Patient reports no desire to harm self or others. Onset of symptoms was January 16, 2021. 11:18 Acuity: RIKKI 2 ll1 11:18 Method Of Arrival: Wheelchair ll1 Historical: - Allergies: 11:18 Ciprofloxacin; ll1 11:18 Macrodantin; ll1 - PMHx: 11:18 Hypertension; breast cancer; Thyroid problem; ll1 - Immunization history:: Client reports receiving the 2nd dose of the Covid vaccine. - Social history:: Smoking status: Patient denies any tobacco usage or history of. - Family history:: not pertinent. - Hospitalizations: : No recent hospitalization is reported. Screenin:03 Abuse screen: Denies threats or abuse. Denies injuries from another. Nutritional tc5 screening: No deficits noted. Tuberculosis screening: No symptoms or risk factors identified. Fall Risk Gait- Weak (10 pts.). Assessment: 15:02 Pain: Unable to use pain scale. pt reports pain all over, unable to rate. Neuro: No tc5 deficits noted. Cardiovascular: No deficits noted. Respiratory: Reports shortness of breath at rest on exertion. GI: Reports nausea. : No deficits noted. 15:53 General: pt sitting up in bed eating, no needs expressed, states she is feeling better, tc5 son at bedside no needs at this time.. Vital Signs: 11:18 BP 153 / 92; Pulse 115; Resp 24; Temp 98.9; Pulse Ox 88% on R/A; Weight 65.77 kg; ll1 Height 5 ft. 6 in. (167.64 cm); Pain 0/10; 15:02 BP 141 / 58; Pulse 111; Resp 18; Pulse Ox 94% 4 lpm ; tc5 15:53 BP 139 / 87; Pulse 111; Resp 16; Pulse Ox 92% 4 lpm ; tc5 11:18 Body Mass Index 23.40 (65.77 kg, 167.64 cm) ll1 ED Course: 11:12 Patient arrived in ED. as 11:12 Dayana Broderick is Private Physician. as 11:12 Vineet Goel MD is Private Physician. as 11:18 Arm band placed on Patient placed in an exam room, on a stretcher. ll1 11:20 Triage completed. ll1 11:20 Oxygen sat. 81-83% on RA after getting from wheelchair onto bed. Dr. Waldron at bedside. ll1 O2 2L NC applied, sat up to 84%. O2 to 3L NC, sat up to 88%. Dr. Waldron informed. 11:20 Patient sepsis alert called overhead. ll1 11:22 Kyle Waldron MD is Attending Physician. rn 11:23 Aide Villafuerte RN is Primary Nurse. tc5 12:17 CXR XRAY In Process Unspecified. EDMS 13:25 Inserted saline lock: 20 gauge in left antecubital area, using aseptic technique. Blood dh4 collected. 15:11 Leopodlo Waldron MD is Hospitalizing Provider. rn Administered Medications: 12:35 Drug: SOLU-Medrol (methylPrednisoLONE) 125 mg Route: IVP; Site: left forearm; tc5 19:51 Follow up: Response: No adverse reaction sj1 12:35 Drug: NS 0.9% 500 ml Route: IV; Rate: bolus; Site: left forearm; tc5 12:35 Drug: Xopenex (levalbuterol) (3) 1.25 mg Route: Inhalation; tc5 12:35 Drug: Magnesium Sulfate 1 grams Route: IVPB; Infused Over: 1 hrs; Site: right tc5 antecubital; 13:43 Drug: Zosyn (piperacillin-tazobactam) 3.375 grams Route: IVPB; Infused Over: 60 mins; tc5 Site: right antecubital; 15:01 Follow up: IV Status: Completed infusion; IV Intake: 100ml tc5 15:53 Drug: NS 0.9% 1000 ml Route: IV; Rate: 1000 ml; Site: left forearm; tc5 19:51 Follow up: IV Status: Completed infusion sj1 Intake: 15:01 IV: 100ml; Total: 100ml. 5 Outcome: 15:11 Decision to Hospitalize by Provider. rn 20:32 Patient left the ED. sj1 Signatures: Dispatcher [employer] Cora Chin Roman, MD MD rn Huhn, [facility] Johan Gustafson RN RN ll1 Mya Grande RN RN sj1 Aide Villafuerte RN RN tc5
--- NOTE | 2021-01-18 15:12 | EDPHYS ---
Physician Documentation [facility] Name: Rani Gonzáles Age: 80 yrs Sex: Female : 1940 Arrival Date: 01/18/2021 Time: 11:12 Bed 18 Private MD: Vineet Goel S; Garrison, Sabrina ED Physician Kyle Waldron HPI: 01/18 11:31 This 80 yrs old Female presents to ER via Wheelchair with complaints of rn Shortness Of Breath. 11:31 The patient has shortness of breath at rest, with light activity. Onset: The rn symptoms/episode began/occurred 3 day(s) ago. Duration: The symptoms are continuous. The patient's shortness of breath is aggravated by exertion, light activity, is alleviated by rest. Associated signs and symptoms: Pertinent positives: productive cough, Pertinent negatives: hemoptysis, loss of consciousness. Severity of symptoms: At their worst the symptoms were moderate in the emergency department the symptoms are unchanged. The patient has experienced similar episodes in the past. The patient has not recently seen a physician. Patient reports shortness of breath and cough for 3 days, states feels like she picked up a cold, went to [place] prior to coming here and told could not be seen there because her oxygen was too low. Has COPD. Is Covid vaccinated. Denies any chest pain. Not on home oxygen.. Historical: - Allergies: 11:18 Ciprofloxacin; ll1 11:18 Macrodantin; ll1 - PMHx: 11:18 Hypertension; breast cancer; Thyroid problem; ll1 - Immunization history:: Client reports receiving the 2nd dose of the Covid vaccine. - Social history:: Smoking status: Patient denies any tobacco usage or history of. - Family history:: not pertinent. - Hospitalizations: : No recent hospitalization is reported. ROS: 11:31 Constitutional: Negative for fever, chills, and weight loss, Eyes: Negative for injury, rn pain, redness, and discharge, ENT: Positive for nasal congestion and abnormal taste Neck: Negative for injury, pain, and swelling, Cardiovascular: Negative for chest pain, palpitations, and edema, Respiratory: Positive for shortness of breath and cough Abdomen/GI: Negative for abdominal pain, nausea, vomiting, diarrhea, and constipation, Back: Negative for injury and pain, : Negative for injury, bleeding, discharge, and swelling, MS/Extremity: Negative for injury and deformity, Skin: Negative for injury, rash, and discoloration, Neuro: Positive for generalized weakness and fatigue 11:31 All other systems are negative. Exam: 11:31 Constitutional: This is a well developed, well nourished patient who is awake, alert, rn moderate tachypnea Head/Face: Normocephalic, atraumatic. Eyes: Periorbital areas with no swelling, redness, or edema. ENT: Dry mucous membranes, no stridor Cardiovascular: Tachycardic, regular Respiratory: Moderate tachypnea with faint expiratory wheezing Abdomen/GI: Soft, nontender Skin: Warm, dry MS/ Extremity: Pulses equal, no cyanosis. Neuro: Awake and alert, GCS 15 Vital Signs: 11:18 BP 153 / 92; Pulse 115; Resp 24; Temp 98.9; Pulse Ox 88% on R/A; Weight 65.77 kg; ll1 Height 5 ft. 6 in. (167.64 cm); Pain 0/10; 15:02 BP 141 / 58; Pulse 111; Resp 18; Pulse Ox 94% 4 lpm ; tc5 15:53 BP 139 / 87; Pulse 111; Resp 16; Pulse Ox 92% 4 lpm ; tc5 11:18 Body Mass Index 23.40 (65.77 kg, 167.64 cm) ll1 MDM: 11:22 Patient medically screened. rn 15:08 Differential diagnosis: Bronchitis Chronic Obstructive Pulmonary Disease pneumonia, rn Pneumothorax pulmonary edema, reactive airway disease, Sepsis COVID. Data reviewed: vital signs, nurses notes, lab test result(s), EKG, radiologic studies, plain films, and as a result, I will admit patient. Data interpreted: cardiac monitor: rate is 110 beats/min, rhythm is regular, sinus tachycardia, with no ectopy, Interpretation: tachycardia, Pulse oximetry: on room air is 88 %. Interpretation: hypoxia. Plan: O2 by NC applied. Test interpretation: by ED physician or midlevel provider: ECG, plain radiologic studies, Chest x-ray shows multifocal pneumonia. Counseling: I had a detailed discussion with the patient and/or guardian regarding: the historical points, exam findings, and any diagnostic results supporting the discharge/admit diagnosis, lab results, radiology results, the need for further work-up and treatment in the hospital. Response to treatment: the patient's symptoms have mildly improved after treatment, and as a result, I will admit patient. Admission orders: after a detailed discussion of the patient's condition and case, the admit orders are written by me. ED course: Patient with multifocal pneumonia on chest x-ray, oxygen 88% on room air, feels much better, will admit for IV antibiotics and multifocal pneumonia. Given Zosyn. Covid negative.. 01/18 11:29 Order name: BMP rn 01/18 11:29 Order name: Blood Culture Adult (2) rn 01/18 11:29 Order name: C-Reactive Protein; Complete Time: 12:42 rn 01/18 11:29 Order name: CBC with Diff; Complete Time: 12:27 rn 01/18 11:29 Order name: Ferritin; Complete Time: 12:42 rn 01/18 11:29 Order name: Flu rn 01/18 11:29 Order name: LFT's; Complete Time: 12:42 rn 01/18 11:29 Order name: Lactate; Complete Time: 12:27 rn 01/18 11:29 Order name: PT-INR; Complete Time: 12:27 rn 01/18 11:29 Order name: Procalcitonin; Complete Time: 12:42 rn 01/18 11:29 Order name: Ptt, Activated; Complete Time: 12:27 rn 01/18 11:29 Order name: Strep; Complete Time: 15:26 rn 01/18 11:29 Order name: Troponin (emerg Dept Use Only); Complete Time: 12:42 rn 01/18 11:29 Order name: Basic Metabolic Panel; Complete Time: 12:42 EDMS 01/18 11:29 Order name: CXR XRAY; Complete Time: 12:30 rn 01/18 11:29 Order name: EKG; Complete Time: 11:30 rn 01/18 11:29 Order name: Cardiac monitoring; Complete Time: 12:08 rn 01/18 11:29 Order name: Droplet/Contact Precautions; Complete Time: 12:08 rn 01/18 11:29 Order name: EKG - Nurse/Tech rn 01/18 11:29 Order name: IV Start; Complete Time: 12:08 rn 01/18 11:29 Order name: Labs collected and sent rn 01/18 14:48 Order name: SARS-COV-2 RT PCR; Complete Time: 14:52 EDMS 01/18 15:13 Order name: Throat Culture EDMS 01/18 11:29 Order name: O2 Per Protocol rn 01/18 11:29 Order name: O2 Sat Monitoring rn Administered Medications: 12:35 Drug: SOLU-Medrol (methylPrednisoLONE) 125 mg Route: IVP; Site: left forearm; tc5 19:51 Follow up: Response: No adverse reaction sj1 12:35 Drug: NS 0.9% 500 ml Route: IV; Rate: bolus; Site: left forearm; tc5 12:35 Drug: Xopenex (levalbuterol) (3) 1.25 mg Route: Inhalation; tc5 12:35 Drug: Magnesium Sulfate 1 grams Route: IVPB; Infused Over: 1 hrs; Site: right tc5 antecubital; 13:43 Drug: Zosyn (piperacillin-tazobactam) 3.375 grams Route: IVPB; Infused Over: 60 mins; tc5 Site: right antecubital; 15:01 Follow up: IV Status: Completed infusion; IV Intake: 100ml tc5 15:53 Drug: NS 0.9% 1000 ml Route: IV; Rate: 1000 ml; Site: left forearm; tc5 19:51 Follow up: IV Status: Completed infusion sj1 Disposition: 15:12 Critical Care:. rn Disposition Summary: 01/18/21 15:11 Hospitalization Ordered Hospitalization Status: Inpatient Admission rn Provider: Leopoldo Waldron rn Location: Telemetry/[facility] (Inpatient) rn Condition: Stable rn Problem: new rn Symptoms: have improved rn Bed/Room Type: Standard rn Room Assignment: 206(01/18/21 18:59) tt3 Diagnosis - Pneumonia, unspecified organism - Multifocal rn - Hypoxemia rn - Sepsis, unspecified organism rn Forms: - Medication Reconciliation Form rn - SBAR form operating room rn time excluding procedures: 15:12 Critical care time: Bedside Care: 35 minutes, Consultation: 5 minutes. Total time: 40 rn minutes Signatures: Dispatcher [employer] EDVA Kyle Waldron MD MD rn Lewis, Lynsay RN RN Jayro Calles tt3 Evert Nicole Theresa RN RN tc5 Mya Grande RN sj1 Corrections: (The following items were deleted from the chart) 13:30 11:30 CORONAVIRUS+BRZ ordered. EDMS EDMS 18:59 15:11 rn tt3
[2021-01-18] MEDS ORDERED: NA CHLORIDE 0.9% 1,000 ML ONE (16:10)
[2021-01-18] MEDS ORDERED: ONDANSETRON 4 MG/2 ML VIAL IV PRN (20:27)
[2021-01-18 21:21] VITALS: BMI 23.3
[2021-01-18] MEDS: NA CHLORIDE 0.9% 1,000 ML IV SCH (21:33)
[2021-01-18] MEDS: KCL 20 MEQ/100 mL IVPB 20 MEQ/100 ML BAG IV SCH (21:33)
[2021-01-18 22:12] LABS: SARS-COV-2 RT PCR NEGATIVE (NEGATIVE)
--- NOTE | 2021-01-18 22:24 | P.HP ---
Certification for Inpatient Patient admitted to: Inpatient With expected LOS: >2 Midnights Patient will require the following post-hospital care: Home Health Services (May need O2 and visiting nurse) Practitioner: I am a practitioner with admitting privileges, knowledge of patient current condition, hospital course, and medical plan of care. Services: Services provided to patient in accordance with Admission requirements found in Title 42 Section 412.3 of the Code of Federal Regulations Patient History Date of Service: 01/18/21 Primary Care Provider: Dr. Wade Broderick Reason for admission: Pneumonia History of Present Illness: Chest Single View - 01/18/2021 12:18 pm CLINICAL HISTORY: Cough;Dyspnea COMPARISON: Chest Pa And Lat (2 Views) dated 11/25/2017; CHEST SINGLE VIEW dated 06/12/2015; CHEST SINGLE VIEW dated 08/22/2011 FINDINGS: Lines: None. Lungs: Worsened multifocal airspace disease, more confluent in the left mid lung. In particular, there is a masslike opacity in the left mid lung measuring approximately 2.1 cm. Pleural: No significant pleural effusions or pneumothorax. Cardiac: Cardiomegaly. Bones: No acute fractures. Other: Surgical clips in the right axilla. IMPRESSION: Increasing bilateral airspace disease concerning for multifocal pneumonia. Recommend follow up chest radiography to ensure resolution of a more mass-like left mid lung opacity. front desk monitor: rate is 110 beats/min, rhythm is regular, sinus tachycardia, with no ectopy, Interpretation: tachycardia, Pulse oximetry: on room air is 88 %. Interpretation: hypoxia. On 4l nasal cannula the O2 sat is 94% 80 year old white female who has been developing cold symptoms for 3 days. She states that she had a severe headache and felt like she was getting the flu. She then developed a cough with congestion and noticed that any activity caused dyspnea. She went to the [facility] but was sent here because of her low oxygen saturation. Labs are remarkable for low potassium (2.8), a CRP of 270, Procalcitonin of 0.07 and a troponin of 0.13. Allergies ciprofloxacin Allergy (Verified 07/26/20 22:31) seecom nitrofurantoin macrocrystal [From Macrodantin] Allergy (Verified 06/11/15 23:54) Nausea/Vomiting Home medications list reviewed: Yes Home Medications: Verapamil HCl [Calan] 240 mg PO DAILY 08/21/11 Acetaminophen with Codeine [Acetaminophen-Cod #4 Tablet] 1 each PO PRN PRN 07/26/20 Amlodipine [Norvasc*] 5 mg PO DAILY 07/26/20 Anastrozole 1 mg PO DAILY 07/26/20 Levothyroxine [Synthroid*] 112 mcg PO [id number] 07/26/20 Venlafaxine HCl [Venlafaxine HCl ER] 75 mg PO DAILY 07/26/20 hydroCHLOROthiazide [Hydrochlorothiazide] 25 mg PO Q48H 07/26/20 predniSONE [Deltasone] 20 mg PO DAILY #50 tab 07/27/20 - Past Medical/Surgical History Has patient received pneumonia vaccine in the past: Yes Diabetic: No -: BREAST CA; -: TACHYCARDIA -: High blood pressure -: Hypothyroidism -: Mild COPD -: Hemachromatosis -: BREAST BIOPSY -: Right breast lumpectomy -: Gallbladder removal -: pelvic organ prolapse surgery Psychosocial/ Personal History: Retired, lives at home with her son - Family History Brother -: Heart disease, Lung disease, Diabetes, Cancer Notes: Lung Ca, Myasthenia Gravis Father -: Lung disease, Cancer Notes: Lung Ca - Social History Smoking Status: Never smoker Alcohol use: No CD- Drugs: No Caffeine use: Yes Place of Residence: Home Review of Systems 10-point ROS is otherwise unremarkable General: Weakness, Malaise Eyes: Unremarkable ENT: Unremarkable Respiratory: Cough, SOB with Excertion, Sputum Cardiovascular: Unremarkable Gastrointestinal: Constipation Genitourinary: Incontinence Musculoskeletal: Unremarkable Integumentary: Unremarkable Neurological: Unremarkable Lymphatics: Unremarkable Physical Examination - Vital Signs Temperature: 97.4 F Blood Pressure: 149/82 Pulse: 95 Respirations: 19 Pulse Ox (%): 97 - Physical Exam General: Alert, In no apparent distress, Oriented x3, Cooperative HEENT: Atraumatic, Normocephalic, PERRLA Neck: Supple, JVD not distended Respiratory: Normal air movement, Crackles/rales Cardiovascular: No edema, Normal pulses, Regular rate/rhythm Capillary refill: Brisk Gastrointestinal: Normal bowel sounds, Soft and benign Musculoskeletal: No swelling, No contractures, No erythema Integumentary: No rashes, No breakdown, No significant lesion Neurological: Normal speech, Normal strength at 5/5 x4 extr, Normal tone External genitalia: Deferred Rectal: Deferred - Studies Laboratory Data (last 24 hrs) 01/18/21 11:57: Sodium 136, Potassium 2.8 L*, BUN 17, Creatinine 0.95, Glucose 111 H, Total Bilirubin 1.0, AST 18, ALT 22, Alkaline Phosphatase 95 01/18/21 11:44: PT 13.3 H, INR 1.15, APTT 26.6 01/18/21 11:44: WBC 13.20 H, Hgb 13.9, Hct 41.2, Plt Count 194 Microbiology Data (last 24 hrs): 01/18/21 11:45 Throat Group A Streptococcus Rapid Screen - Final Assessment and Plan - Plan Assessment Pneumonia HTN Hypothyroidism Plan Pneumonia: Titrate Oxygen, Zosyn IV antibiotic, Pulmonology Consult. Repeat procalcitonin, CRP and trend troponin. HTN: Metoprolol 25mg bid, hydralazine for elevated pressure Hypothyroidism: TSH, T4 DVT prophylaxis: Lovinox 40mg SQ Code Status: DNR Discharge Plan: Home Plan to discharge in: Unknown - Advance Directives Does patient have a Living Will: Yes Does patient have a Durable POA for Healthcare: Yes - Code Status/Comfort Care Code Status Assessed: Yes (DNR) Code Status: Do Not Attempt Resuscitat Critical Care: No Time Spent Managing Pts Care (In Minutes): 70
[2021-01-18 23:12] LABS: Urine Appearance CLEAR (Clear); Urine Bilirubin NEGATIVE (Negative); Urine Blood NEGATIVE (Negative); Urine Color YELLOW (Yellow); Urine Glucose 1+ (Negative); Urine Protein TRACE (Negative); Urine Specific Gravity 1.015 (1.005-1.030); Urine Urobilinogen 0.2 mg/dL (0.2-1.0)
[2021-01-18 23:16] LABS: Urine Microscopic Reflex ORDER UMIC
[2021-01-18 23:40] LABS: Urine Bacteria 20-50 /HPF (<20); Urine Mucus 1+ /HPF (NONE SEEN); Urine RBC NONE SEEN /HPF (NONE SEEN)
[2021-01-19] MEDS: KCL 20 MEQ/100 mL IVPB 20 MEQ/100 ML BAG IV SCH ×2 (00:13→03:07)
[2021-01-19] MEDS: PIPER TAZO 2.25 GM in NA CHLORIDE 0.9% 50 ML IV SCH ×4 (00:15→17:56)
[2021-01-19] MEDS ORDERED: PIPER TAZO 3.375 GM in NA CHLORIDE 0.9% 100 ML IV SCH (01:00)
[2021-01-19] MEDS: METOPROLOL TAR 25 MG TAB PO SCH ×2 (05:17→17:51)
--- NOTE | 2021-01-19 06:12 | P.PN ---
Date of Service: 01/19/21 Subjective Feeling better this morning, breathing more comfortably, still requiring oxygen supplementation. Reports having a bit of a cough. Review of Systems 10-point ROS is otherwise unremarkable Physical Examination GEN: Alert, oriented, NAD HEENT: Normal conjunctiva, sclera anicteric CV: Regular rate and rhythm, trace b/l pedal edema Pulm: Mildly labored respirations on 4 L nasal cannula, crackles heard throughout, diminished at bases bilaterally ABD: Soft, nontender, nondistended MSK: No joint tenderness Integumentary: No rashes Neuro: Normal speech, normal affect Assessment and Plan Community acquired pneumonia, multifocal HTN Hypothyroidism h/o breast cancer Multifocal pneumonia noted on CXR, reports masslike opacity Continue Zosyn Obtain CTA chest to evaluate masslike opacity, patient does have history of breast cancer, will rule out PE as well Pulmonology consulted Continue home medications as tolerated/appropriate Patient appears to be feeling better today Wean oxygen Code: DNR Dispo: Anticipate discharge home in 2-3 days. Time spent managing patient's care (in minutes): 35
[2021-01-19] MEDS: ENOXAPARIN 40 MG/0.4 ML SQ SCH (08:16)
--- NOTE | 2021-01-19 08:25 | RAD REPORT ---
EXAM DESCRIPTION: CT - Chest For Pe Angio - 01/19/2021 7:57 am CLINICAL HISTORY: eval masslike opacity, r/o PE, h/o breast cancer COMPARISON: Rad Therapy [facility] Chest dated 09/24/2015; Rad Therapy [facility] Chest dated 08/16/2015; Chest Single View dated 01/18/2021 FINDINGS: Chest Wall: No suspicious thyroid nodules or pathologic lymphadenopathy. Lungs: Multifocal bilateral airspace disease including wedge-shaped consolidations in the lingula and left upper lobe. Patchy airspace disease throughout both lungs. Pleura: No significant effusions or pneumothorax. Mediastinum/tony: No pathologic lymphadenopathy. Pulmonary arteries/Aorta: No filling defect identified. No aortic aneurysm. Enlarged main pulmonary a rtery suggesting pulmonary artery hypertension. Heart: No significant pericardial effusion. Cardiomegaly. No pericardial effusion. Upper abdomen: Cholecystectomy. Bones: No acute abnormality. All CT scans are performed using dose optimization technique as appropriate and may include automated exposure control or mA/KV adjustment according to patient size. IMPRESSION: Negative for pulmonary embolism. Moderate bilateral airspace disease concerning for mult ifocal pneumonia. Masslike opacities in the left lung corresponds with areas of consolidation without suspicious findings to suggest underlying neoplasm.
[2021-01-19] MEDS: NA CHLORIDE 0.9% 1,000 ML IV SCH (10:00)
--- NOTE | 2021-01-19 11:14 | EKG ---
Test Date: 2021-01-18 Test Time: 20:08:26 Cytogenetics Technologist: SUSANNE MEASUREMENT RESULTS: Intervals: Rate: 90 TN: QRSD: 66 QT: 328 QTc: 401 [place]: P: TN: QRS: -10 T: 175 INTERPRETIVE STATEMENTS: Accelerated Junctional rhythm with retrograde conduction with occasional premature ventricular complexes Moderate voltage criteria for LVH, may be normal variant Inferior infarct, age undetermined Anteroseptal infarct, age undetermined ST & T wave abnormality, consider lateral ischemia Abnormal ECG Compared to ECG 07/26/2020 15:50:05 Accelerated junctional rhythm now present ST (T wave) deviation now present Possible ischemia now present Sinus rhythm no longer present Atrial premature complex(es) no longer present Prolonged QT interval no longer present Myocardial infarct finding still present Electronically Signed On 01-19-21 11:13:04 CDT by Vineet Goel
[2021-01-19 14:32] LABS: Basophils % 0.2 % (0-1.3); Hematocrit 39.7 % (36.0-45.0); Lymphocytes % 6.5 % (15.3-44.8); MPV 8.2 fL (7.6-11.3); RBC Red Blood Cell Count 4.07 M/uL (3.86-4.86)
[2021-01-19 15:00] LABS: ALT/SGPT 29 U/L (12-78); AST/SGOT 20 U/L (15-37); Albumin 2.9 g/dL (3.4-5.0); Alkaline Phosphatase 95 U/L (45-117); BUN Blood Urea Nitrogen 14 mg/dL (7-18); Bicarbonate 28 mmol/L (21-32); Bilirubin Total 0.4 mg/dL (0.2-1.0); Glucose Level 106 mg/dL (74-106); Magnesium 2.2 mg/dL (1.8-2.4); Potassium 3.4 mmol/L (3.5-5.1); Protein, Total 7.2 g/dL (6.4-8.2); Sodium Level 143 mmol/L (136-145); T4,Total 8.8 ug/dL (4.8-13.9)
[2021-01-19] MEDS: HYDRALAZINE HCL 20 MG/ML VIAL IV PRN (17:49)
[2021-01-19] MEDS ORDERED: POTASSIUM CL SA 10 MEQ TAB PO ONE (19:14)
[2021-01-19] MEDS: hydroCHLOROthiazide 25 MG TAB PO SCH (23:51)
[2021-01-19] MEDS: AMLODIPINE 5 MG TAB PO SCH (23:53)
[2021-01-20] MEDS: PIPER TAZO 2.25 GM in NA CHLORIDE 0.9% 50 ML IV SCH ×2 (00:12→05:16)
[2021-01-20] MEDS: ACETAMINOPHEN 500 MG TAB PO PRN ×4 (03:29→22:44)
[2021-01-20] MEDS: NA CHLORIDE 0.9% 1,000 ML IV SCH (03:30)
[2021-01-20] MEDS: KCL 20 MEQ/100 mL IVPB 20 MEQ/100 ML BAG IV SCH ×2 (03:34→05:15)
[2021-01-20] MEDS: LEVOTHYROXINE SOD 0.112 MG TAB PO SCH (05:17)
--- NOTE | 2021-01-20 06:06 | P.PN ---
Date of Service: 01/20/21 Subjective Feeling better this morning, breathing more comfortably, down to 2L NC Nonproductive cough, did not sleep well Review of Systems 10-point ROS is otherwise unremarkable Physical Examination GEN: Alert, oriented, NAD HEENT: Normal conjunctiva, sclera anicteric CV: Regular rate and rhythm, trace b/l pedal edema Pulm: Mildly labored respirations on 2 L nasal cannula, crackles heard throughout, diminished at bases bilaterally ABD: Soft, nontender, nondistended Neuro: Normal speech, normal affect Assessment and Plan Community acquired pneumonia, multifocal HTN Hypothyroidism h/o breast cancer Multifocal pneumonia noted on CXR, reports masslike opacity - CT consistent with pneumonia, does not appear to have a true mass/cancer Continue Zosyn for now. Pulmonology consulted. Can likely transition to p.o. in next 24 hours given her significant improvement Continue home medications as tolerated/appropriate Patient states she is feeling better today, down to 2 L nasal cannula Wean oxygen PT consulted Code: DNR Dispo: Anticipate discharge home in 1-2 days. Time spent managing patient's care (in minutes): 35
[2021-01-20 06:15] LABS: Absolute Lymphocytes (CBC) 1.1 K/uL (0.7-4.9); Basophils % 0.1 % (0-1.3); Hematocrit 35.6 % (36.0-45.0); Lymphocytes % 8.8 % (15.3-44.8); RBC Red Blood Cell Count 3.62 M/uL (3.86-4.86)
[2021-01-20 07:42] LABS: ALT/SGPT 36 U/L (12-78); AST/SGOT 42 U/L (15-37); Albumin 2.8 g/dL (3.4-5.0); Alkaline Phosphatase 91 U/L (45-117); BUN Blood Urea Nitrogen 13 mg/dL (7-18); Bicarbonate 27 mmol/L (21-32); Bilirubin Total 0.5 mg/dL (0.2-1.0); Glucose Level 100 mg/dL (74-106); Magnesium 2.3 mg/dL (1.8-2.4); Potassium 3.8 mmol/L (3.5-5.1); Sodium Level 143 mmol/L (136-145)
[2021-01-20] MEDS ORDERED: POTASSIUM CL SA 10 MEQ TAB PO ONE (08:59)
[2021-01-20] MEDS: hydroCHLOROthiazide 25 MG TAB PO SCH (09:00)
[2021-01-20] MEDS ORDERED: ANASTROZOLE 1 MG TAB PO SCH (09:00)
[2021-01-20] MEDS: VENLAFAXINE HCL XR 75 MG CAP PO SCH (09:00)
[2021-01-20] MEDS ORDERED: VERAPAMIL HCL 120 MG TAB PO SCH (09:00)
[2021-01-20] MEDS: AMLODIPINE 5 MG TAB PO SCH ×2 (09:03→19:50)
[2021-01-20] MEDS: VERAPAMIL HCL 120 MG TAB PO SCH ×2 (09:09→19:51)
[2021-01-20] MEDS: ANASTROZOLE 1 MG TAB PO SCH (09:10)
[2021-01-20] MEDS: ENOXAPARIN 40 MG/0.4 ML SQ SCH (09:13)
--- NOTE | 2021-01-20 11:08 | P.CNS ---
Date of Consult: 01/20/21 Reason for Consult: Pneumonia Primary Care Provider: Dr. Wade Broderick Chief Complaint: Pneumonia History of Present Illness: Patient is 80 years of age pleasant lady admitted with acute onset of fever chills productive cough was found to have bilateral pneumonia she is currently doing better Allergies ciprofloxacin Allergy (Verified 07/26/20 22:31) seecom nitrofurantoin macrocrystal [From Macrodantin] Allergy (Verified 06/11/15 23:54) Nausea/Vomiting Home Medications: Verapamil HCl [Calan] 120 mg PO BID 08/21/11 Acetaminophen with Codeine [Acetaminophen-Cod #4 Tablet] 1 each PO PRN PRN 07/26/20 Amlodipine [Norvasc*] 5 mg PO DAILY 07/26/20 Anastrozole 1 mg PO DAILY 07/26/20 Levothyroxine [Synthroid*] 112 mcg PO [id number] 07/26/20 Venlafaxine HCl [Venlafaxine HCl ER] 75 mg PO DAILY 07/26/20 hydroCHLOROthiazide [Hydrochlorothiazide] 25 mg PO DAILY 07/26/20 - Past Medical/Surgical History Diabetic: No -: BREAST CA; -: TACHYCARDIA -: High blood pressure -: Hypothyroidism -: Mild COPD -: Hemachromatosis -: BREAST BIOPSY -: Right breast lumpectomy -: Gallbladder removal -: pelvic organ prolapse surgery Psychosocial/ Personal History: Retired, lives at home with her son - Family History Brother Medical History: Heart disease, Lung disease, Diabetes, Cancer Notes: Lung Ca, Myasthenia Gravis Father Medical History: Lung disease, Cancer Notes: Lung Ca - Social History Smoking Status: Never smoker Alcohol use: No CD- Drugs: No Caffeine use: Yes Place of Residence: Home Review of Systems 10-point ROS is otherwise unremarkable General: Weakness Respiratory: Cough Physical Examination Temp Pulse Resp BP Pulse Ox 97 F 84 18 175/80 H 91 01/20/21 08:00 01/20/21 08:00 01/20/21 08:00 01/20/21 08:00 01/20/21 08:00 General: In no apparent distress, Oriented x3 Neck: Supple Respiratory: Clear to auscultation bilaterally Cardiovascular: No edema, Normal S1 S2 Gastrointestinal: Normal bowel sounds, Soft and benign - Problems (1) Pneumonia Current Visit: Yes Status: Acute Plan: Patient is 80 years of age admitted with acute onset of pneumonia most likely pneumococcal he was doing well this occurred rather suddenly doing better chemistries reviewed white count is improving oxygenation satisfactory patient has a history of hypertension seeing cardiology avoid hydrochlorothiazide due to her arrhythmia increase the dose of amlodipine instead Qualifiers: Laterality: bilateral
[2021-01-20] MEDS: HYDRALAZINE HCL 20 MG/ML VIAL IV PRN (11:56)
[2021-01-20] MEDS: AMOX/K CLAV 500 MG TAB PO SCH (19:49)
[2021-01-20] MEDS: DOXYCYCLINE 100 MG CAP PO SCH (19:50)
[2021-01-20] MEDS ORDERED: MELATONIN 5 MG TABLET PO PRN (23:59)
[2021-01-21] MEDS: METOPROLOL TARTRATE 5 MG/5 ML INJ IV SCH ×4 (03:04→03:21)
[2021-01-21] MEDS: ACETAMINOPHEN 500 MG TAB PO PRN ×3 (05:16→19:52)
[2021-01-21] MEDS: LEVOTHYROXINE SOD 0.112 MG TAB PO SCH (05:16)
[2021-01-21] MEDS ORDERED: DIGOXIN 0.25 MG/ML AMP IV ONE (05:34)
[2021-01-21 05:42] LABS: Absolute Lymphocytes (CBC) 1.1 K/uL (0.7-4.9); Basophils % 0.1 % (0-1.3); Hematocrit 42.3 % (36.0-45.0); Lymphocytes % 8.1 % (15.3-44.8)
--- NOTE | 2021-01-21 06:09 | P.PN ---
Date of Service: 01/21/21 Subjective o/n into afib, improved with lopressor IV, then HR> 120s, given digoxin Overall patient feels a little better, oxygen requirement decreasing, does not feel any palpitations or heart racing. She does report some discomfort in her back when she lays flat, so she has been having to sit up which eventually gives her some discomfort in her lower back Review of Systems 10-point ROS is otherwise unremarkable Physical Examination GEN: Alert, oriented, NAD HEENT: Normal conjunctiva, sclera anicteric CV: Irregular rate/rhythm, no edema Pulm: Mildly labored respirations on 2 L nasal cannula, diminished at bases bilaterally ABD: Soft, nontender, nondistended Neuro: Normal speech, normal affect Assessment and Plan Community acquired pneumonia, multifocal HTN Hypothyroidism h/o breast cancer afib, new onset Multifocal pneumonia noted on CXR, reports masslike opacity - CT consistent with pneumonia, does not appear to have a true mass/cancer Started on Zosyn, pulmonology consulted and transitioned medications to p.o Continue home medications as tolerated/appropriate Oxygen requirement improved Intermittently feeling short of breath likely from his new onset A. fib. Heart rate improving, start p.o. metoprolol s/p digoxin, cardiology consulted Echo ordered Wean oxygen PT consulted Code: DNR Dispo: Anticipate discharge home in 1-2 days. Time spent managing patient's care (in minutes): 35
[2021-01-21] MEDS: METOPROLOL TAR 25 MG TAB PO SCH ×2 (06:13→18:00)
[2021-01-21 06:19] LABS: Albumin 2.9 g/dL (3.4-5.0); Bilirubin Total 0.4 mg/dL (0.2-1.0); Potassium 3.2 mmol/L (3.5-5.1); Protein, Total 7.3 g/dL (6.4-8.2)
[2021-01-21] MEDS ORDERED: POTASSIUM 25 MEQ EFFERV TAB PO ONE ×2 (06:21→20:17)
[2021-01-21] MEDS ORDERED: INFLUENZA VACCINE (for 6+ mo) 0.5 ML DOSE IMVAC ONE (08:00)
[2021-01-21] MEDS: VENLAFAXINE HCL XR 75 MG CAP PO SCH (09:00)
[2021-01-21] MEDS: ENOXAPARIN 40 MG/0.4 ML SQ SCH (09:33)
[2021-01-21] MEDS: AMLODIPINE 5 MG TAB PO SCH ×2 (09:34→19:52)
[2021-01-21] MEDS: DOXYCYCLINE 100 MG CAP PO SCH ×2 (09:39→19:52)
[2021-01-21] MEDS: ANASTROZOLE 1 MG TAB PO SCH (09:39)
[2021-01-21] MEDS: VERAPAMIL HCL 120 MG TAB PO SCH ×2 (09:39→19:53)
[2021-01-21] MEDS: AMOX/K CLAV 500 MG TAB PO SCH ×2 (09:40→19:52)
--- NOTE | 2021-01-21 15:41 | CON ---
Date of Consultation: 01/21/2021 Reason For Consultation: Tachycardia. History Of Present Illness: This is an 80-year-old female with a history of hypertension, COPD, hemo chromatosis, breast cancer, presented to the emergency room with shortness of breath, upper respirato ry tract infection symptoms, and had tachycardia on EKG that was suspicious for AFib. As such, I was consulted. Past Medical History: As outlined above in the HPI. Medications: Refer reconciliation sheet for detailed list. Allergies: CIPRO AND NITROFURANTOIN. Family History: No premature coronary artery disease or cancer. Social History: Does not smoke or drink. Does not use any drugs. Review of Systems: All systems reviewed and they were negative except for mentioned in the HPI. Physical Examination: Vital Signs: Revealed temperature is 98.0, pulse is 85, breathing at 18, blood pressure is 132/60, s aturating 96%. General: Pleasant elderly female, in no apparent distress. Head and Neck: Pupils are equal, reactive to light. Intact eye movements. No JVD. No cervical lym phadenopathy. Neck: Supple. Thyroid is not enlarged. Lungs: Clear to auscultation bilaterally. No rhonchi, rales, or crackles. No accessory muscle use. Heart: Regular rate and rhythm. No extra sounds. Abdomen: Soft, nontender. Bowel sounds positive. No organomegaly. No masses or hernia. No rigidi ty or rebound. Extremities: No edema, clubbing, or cyanosis. Intact pulses. Skin: No rash noted. Neurologic: Alert, awake, oriented x3. No acute focal deficits appreciated. Investigations: Creatinine 0.72, potassium 3.2. Troponin 0.07 and then 0.09. The CTA chest, negati ve for pulmonary embolism, but she has pneumonia. Assessment And Recommendations: 1.Tachycardia. See documented EKG with atrial fibrillation; however, there were concerns of atrial fibrillation. She was started on metoprolol. Now, she appears to be in sinus. I will repeat an EKG to confirm and obtain an echocardiogram. 2.Borderline elevated troponin. It is likely due to demand ischemia. If the patient does have any chest pain, make sure the patient is on aspirin and once the patient is discharged, as an outpatient a stress test will be recommended. Thank you for the consult. /ALDO Voice ID: [id number] Report ID: [id number]
[2021-01-22] MEDS: LEVOTHYROXINE SOD 0.112 MG TAB PO SCH (05:26)
[2021-01-22] MEDS: METOPROLOL TAR 25 MG TAB PO SCH ×2 (05:27→18:37)
[2021-01-22 06:10] LABS: Absolute Lymphocytes (CBC) 0.9 K/uL (0.7-4.9); Basophils % 0.3 % (0-1.3); Hematocrit 40.3 % (36.0-45.0); Lymphocytes % 9.3 % (15.3-44.8); MPV 7.8 fL (7.6-11.3); RBC Red Blood Cell Count 4.11 M/uL (3.86-4.86)
[2021-01-22 06:23] LABS: BUN Blood Urea Nitrogen 14 mg/dL (7-18); Bicarbonate 36 mmol/L (21-32); Glucose Level 120 mg/dL (74-106); Magnesium 1.9 mg/dL (1.8-2.4); Potassium 3.5 mmol/L (3.5-5.1); Sodium Level 144 mmol/L (136-145)
--- NOTE | 2021-01-22 08:51 | ECHO ---
HEIGHT: 5 ft 6 in WEIGHT: 145 lb 0 oz DATE OF STUDY: 01/21/[address]: Leopoldo Waldron MD 2-DIMENSIONAL: YES M.MODE: YES DOPPLER: YES COLOR FLOW: YES TDS: NO PORTABLE: NO DEFINITY: NO BUBBLE STUDY: NO DIAGNOSIS: ATRIAL FIBRILLATION CARDIAC HISTORY: CATHERIZATION: NO SURGERY: NO PROSTHETIC VALVE: NO PACEMAKER: NO MEASUREMENTS (cm) DIASTOLIC (NORMALS) SYSTOLIC (NORMALS) IVSd 1.0 (0.6-1.2) LA Diam 3.3 (1.9-4.0) LVEF 57% LVIDd 4.3 (3.5-5.7) LVIDs 3.0 (2.0-3.5) %FS 30% LVPWd 1.0 (0.6-1.2) Ao Diam 3.0 (2.0-3.7) 2 DIMENSIONAL ASSESSMENT: RIGHT ATRIUM: NORMAL LEFT ATRIUM: NORMAL RIGHT VENTRICLE: NORMAL LEFT VENTRICLE: NORMAL TRICUSPID VALVE: MITRAL VALVE: PULMONIC VALVE: NORMAL AORTIC VALVE: NORMAL PERICARDIAL EFFUSION: SMALL AORTIC ROOT: NORMAL LEFT VENTRICULAR WALL MOTION: NORMAL DOPPLER/COLOR FLOW: SEE BELOW. COMMENTS: NORMAL LEFT VENTRICULAR EJECTION FRACTION 55-60%. NORMAL WALLM MOTION. MILD MITRAL AND TRICUSPID REGURGITATION. SMALL PERICARDIAL EFFUSION. TECHNOLOGIST: Raina WOODS
[2021-01-22] MEDS ORDERED: POTASSIUM 25 MEQ EFFERV TAB PO ONE (09:00)
[2021-01-22] MEDS: ACETAMINOPHEN 500 MG TAB PO PRN ×2 (09:35→15:57)
[2021-01-22] MEDS: AMLODIPINE 5 MG TAB PO SCH ×2 (09:36→21:03)
[2021-01-22] MEDS: VENLAFAXINE HCL XR 75 MG CAP PO SCH (09:36)
[2021-01-22] MEDS: AMOX/K CLAV 500 MG TAB PO SCH ×2 (09:37→21:03)
[2021-01-22] MEDS: DOXYCYCLINE 100 MG CAP PO SCH ×2 (09:37→21:03)
[2021-01-22] MEDS: VERAPAMIL HCL 120 MG TAB PO SCH ×2 (09:38→21:05)
[2021-01-22] MEDS: ANASTROZOLE 1 MG TAB PO SCH (09:38)
[2021-01-22] MEDS: ENOXAPARIN 40 MG/0.4 ML SQ SCH (09:39)
--- NOTE | 2021-01-22 18:13 | EKG ---
Test Date: 2021-01-21 Test Time: 02:51:24 Neurology Director: RT-O MEASUREMENT RESULTS: Intervals: Rate: 148 ME: QRSD: 74 QT: 250 QTc: 392 [place]: P: ME: QRS: 4 T: 169 INTERPRETIVE STATEMENTS: Atrial fibrillation with rapid ventricular response Inferior infarct, age undetermined Anteroseptal infarct, age undetermined Marked ST abnormality, possible lateral subendocardial injury Abnormal ECG Compared to ECG 01/18/2021 20:08:26 Accelerated junctional rhythm no longer present Ventricular premature complex(es) no longer present Left ventricular hypertrophy no longer present Possible ischemia no longer present Myocardial infarct finding still present ST (T wave) deviation still present Electronically Signed On 01-22-21 18:06:20 CDT by Vineet Goel
--- NOTE | 2021-01-22 18:27 | P.PN ---
Subjective Date of Service: 01/22/21 Primary Care Provider: Dr. Wade Broderick Chief Complaint: Pneumonia Patient has no complain today. She ambulated to and from bathroom with ease on 2 L oxygen by nasal canula. Physical Examination - Vital Signs Temperature: 97.9 F Blood Pressure: 152/72 Pulse: 91 Respirations: 26 Pulse Ox (%): 91 - Physical Exam General: Alert, In no apparent distress, Oriented x3 HEENT: Mucous membr. moist/pink Neck: JVD not distended Respiratory: Normal air movement, Crackles/rales (Bilateral) Cardiovascular: No edema, Regular rate/rhythm, Normal S1 S2 Gastrointestinal: Soft and benign, Non-distended, No tenderness Musculoskeletal: No swelling, No tenderness Integumentary: No rashes, No cyanosis Neurological: Normal strength at 5/5 x4 extr Assessment And Plan - Current Problems (Diagnosis) (1) Pneumonia Current Visit: Yes Status: Acute Qualifiers: Laterality: bilateral (2) COPD (chronic obstructive pulmonary disease) Current Visit: No Status: Chronic Qualifiers: COPD type: unspecified COPD Qualified Code(s): J44.9 - Chronic obstructive pulmonary disease, unspecified (3) Hypertension Current Visit: No Status: Chronic Qualifiers: Hypertension type: essential hypertension Qualified Code(s): I10 - Essential (primary) hypertension (4) Hypothyroidism Current Visit: No Status: Chronic Qualifiers: Hypothyroidism type: unspecified Qualified Code(s): E03.9 - Hypothyroidism, unspecified (5) Atrial fibrillation Current Visit: Yes Status: Acute - Plan Patient has clinically improved. Atrial fibrillation appears with transient. Seen by cardiology. Echocardiogram is unremarkable. Patient started on metoprolol. Continue antibiotics for pneumonia. Pulmonary transitioned her from IV antibiotics to oral Augmentin. Wean oxygen as tolerated.
--- NOTE | 2021-01-22 21:18 | PN ---
Date of Progress Note: 01/22/2021 Ms. Gonzáles was seen by Dr. Miller on 01/21/2021 for tachycardia, atrial fibrillation. The patient wa s started on metoprolol, appeared to be in sinus rhythm yesterday. She remained in sinus rhythm toda y. She has elevated troponin secondary to demand ischemia. Echocardiogram which was done showed nor mal left ventricular ejection fraction of 55% to 60%. No wall motion abnormality. She had a small p ericardial effusion. Her blood pressure was 152/72, sinus rhythm, heart rate of 91. Her white count was down to 9.30. She is on amlodipine, antibiotics, digoxin, Lovenox, hydralazine, Synthroid, meto prolol, verapamil, hydrochlorothiazide. She is a do not resuscitate. We would continue her present regimen. No further cardiac workup at this point. YANNICK/ALDO Voice ID: [id number] Report ID: [id number]
[2021-01-23] MEDS: ACETAMINOPHEN 500 MG TAB PO PRN ×2 (03:09→13:14)
[2021-01-23 04:42] VITALS: O2SAT 94
[2021-01-23 04:44] LABS: Basophils % 0.4 % (0-1.3); Hematocrit 38.1 % (36.0-45.0); Lymphocytes % 10.3 % (15.3-44.8); MPV 8.1 fL (7.6-11.3); RBC Red Blood Cell Count 3.89 M/uL (3.86-4.86)
[2021-01-23 04:55] LABS: Potassium 3.5 mmol/L (3.5-5.1)
[2021-01-23] MEDS: LEVOTHYROXINE SOD 0.112 MG TAB PO SCH (05:49)
[2021-01-23] MEDS: METOPROLOL TAR 25 MG TAB PO SCH (05:49)
[2021-01-23] MEDS: VENLAFAXINE HCL XR 75 MG CAP PO SCH (09:00)
[2021-01-23] MEDS ORDERED: POTASSIUM CL SA 10 MEQ TAB PO ONE (09:00)
[2021-01-23] MEDS: AMLODIPINE 5 MG TAB PO SCH (09:05)
[2021-01-23] MEDS: DOXYCYCLINE 100 MG CAP PO SCH (09:05)
[2021-01-23] MEDS: AMOX/K CLAV 500 MG TAB PO SCH (09:05)
[2021-01-23] MEDS: ENOXAPARIN 40 MG/0.4 ML SQ SCH (09:06)
[2021-01-23] MEDS: VERAPAMIL HCL 120 MG TAB PO SCH (09:06)
[2021-01-23] MEDS: ANASTROZOLE 1 MG TAB PO SCH (09:06)
[2021-01-23 12:13] VITALS: BP 132/70; TEMP 99.2
--- NOTE | 2021-01-23 13:50 | P.DS ---
Admission Date: 01/18/21 Discharge Date: 01/23/21 Primary Care Provider: Dr. Wade Broderick Disposition: DC HOME/HOME HEALTH CARE Discharge Condition: FAIR Reason for Admission: Pneumonia - Problems (1) Pneumonia Current Visit: Yes Status: Acute Qualifiers: Laterality: bilateral (2) COPD (chronic obstructive pulmonary disease) Current Visit: No Status: Chronic Qualifiers: COPD type: unspecified COPD Qualified Code(s): J44.9 - Chronic obstructive pulmonary disease, unspecified (3) Hypertension Current Visit: No Status: Chronic Qualifiers: Hypertension type: essential hypertension Qualified Code(s): I10 - Essential (primary) hypertension (4) Hypothyroidism Current Visit: No Status: Chronic Qualifiers: Hypothyroidism type: unspecified Qualified Code(s): E03.9 - Hypothyroidism, unspecified (5) Atrial fibrillation Current Visit: Yes Status: Acute Brief History of Present Illness: 80 year old woman presented with shortness breath preceded by cold symptoms over 3 days. She states that she had a severe headache and felt like she was getting the flu. She then developed a cough with congestion and noticed that any activity caused dyspnea. She went to the [place] [facility] and later transferred here because of her low oxygen saturation. Labs are remarkable for low potassium (2.8), a CRP of 270, Procalcitonin of 0.07 and a troponin of 0.13. Chest x-ray done on admission: : Increasing bilateral airspace disease concerning for multifocal pneumonia. Recommend follow up chest radiography to ensure resolution of a more masslike left mid lung opacity. Patient admitted for further management. Hospital Course: Patient was treated with IV Zosyn for the pneumonia. CTA thorax was done which reported Negative for pulmonary embolism. Moderate bilateral airspace disease concerning for multifocal pneumonia. Masslike opacities in the left lung corresponds with areas of consolidation without suspicious findings to suggest underlying neoplasm. Patient seen by pulmonary who assisted with management. She was transitioned from IV antibiotics to oral Augmentin and doxycycline as her respiratory status improved. She is currently maintained on 2 L oxygen by nasal cannula and at this point she desaturate with ambulation. Has a baseline history of COPD. Patient is discharged with home oxygen. She developed transient atrial fibrillation. Patient quickly converted to sinus tachycardia. She was started on oral metoprolol. Her heart rate is currently controlled on the current dose of Metoprolol. Her troponin slightly elevated. Patient seen by cardiology. Elevated troponin deemed secondary to demand ischemia. Cardiology recommend outpatient stress test. Patient seen by PT pain has been able to ambulate with a walker but get dyspneic with ambulation. She will benefit from home health for physical therapy. Vital Signs/Physical Exam: Temp Pulse Resp BP Pulse Ox 99.2 F 77 32 H 132/70 90 L 01/23/21 12:00 01/23/21 12:00 01/23/21 12:00 01/23/21 12:00 01/23/21 12:00 General: Alert, In no apparent distress HEENT: Mucous membr. moist/pink Neck: JVD not distended Respiratory: Normal air movement, Crackles/rales (Bilateral) Cardiovascular: No edema, Regular rate/rhythm, Normal S1 S2 Gastrointestinal: Soft and benign, Non-distended Musculoskeletal: No swelling Integumentary: No rashes Neurological: Normal strength at 5/5 x4 extr Laboratory Data at Discharge: WBC 9.90 K/uL (4.3-10.9) 01/23/21 03:56 Hgb 13.0 g/dL (12.0-15.0) 01/23/21 03:56 Hct 38.1 % (36.0-45.0) 01/23/21 03:56 Plt Count 227 K/uL (152-406) 01/23/21 03:56 PT 13.3 SECONDS (9.5-12.5) H 01/18/21 11:44 INR 1.15 01/18/21 11:44 APTT 26.6 SECONDS (24.3-36.9) 01/18/21 11:44 Sodium 143 mmol/L (136-145) 01/23/21 03:56 Potassium 3.5 mmol/L (3.5-5.1) 01/23/21 03:56 BUN 14 mg/dL (7-18) 01/23/21 03:56 Creatinine 0.69 mg/dL (0.55-1.3) 01/23/21 03:56 Glucose 146 mg/dL (74-106) H 01/23/21 03:56 Magnesium 1.9 mg/dL (1.8-2.4) 01/22/21 05:52 Total Bilirubin 0.4 mg/dL (0.2-1.0) 01/21/21 05:16 AST 30 U/L (15-37) 01/21/21 05:16 ALT 42 U/L (12-78) 01/21/21 05:16 Alkaline Phosphatase 106 U/L (45-117) 01/21/21 05:16 Troponin I 0.07 ng/mL (0.0-0.045) H 01/19/21 03:19 Home Medications: Verapamil HCl [Calan] 120 mg PO BID 08/21/11 Acetaminophen with Codeine [Acetaminophen-Cod #4 Tablet] 1 each PO PRN PRN 07/26/20 Amlodipine [Norvasc*] 5 mg PO DAILY 07/26/20 Anastrozole 1 mg PO DAILY 07/26/20 Levothyroxine [Synthroid*] 112 mcg PO [id number] 07/26/20 Venlafaxine HCl [Venlafaxine HCl ER] 75 mg PO DAILY 07/26/20 Albuterol Neb [Proventil 0.083% Neb Soln] 2.5 mg IH QID PRN #120 amp 01/23/21 Amox/Clavulanate [Augmentin 500-125 mg Tab*] 500 mg PO BID #18 tab 01/23/21 Doxycycline Hyclate 100 mg PO BID #18 tablet 01/23/21 Metoprolol Tartrate [Lopressor*] 25 mg PO BID 6AM 6PM #60 tab 01/23/21 Nebulizer [Truneb Nebulizer] 1 each QID #1 each 01/23/21 New Medications: Amox/Clavulanate [Augmentin 500-125 mg Tab*] 500 mg PO BID #18 tab Doxycycline Hyclate 100 mg PO BID #18 tablet Metoprolol Tartrate [Lopressor*] 25 mg PO BID 6AM 6PM #60 tab Albuterol Neb [Proventil 0.083% Neb Soln] 2.5 mg IH QID PRN #120 amp PRN Reason: Shortness Of Breath Nebulizer [Truneb Nebulizer] 1 each QID #1 each Diet: AHA Activity: Fall precautions Followup: Poli Logan MD [ACTIVE - CAN ADMIT] - 1-2 Weeks Dayana Ruff PAC [Primary Care Provider] - 1 Week Keith Miller MD [ACTIVE - CAN ADMIT] - 1-2 Weeks Time spent managing pt's care (in minutes): 40
== END 2021-01-23 16:11 | disposition home health service (06) | DRG 190 ==
LOC: ER 11:10 → ERHOLD 17:14 → 2ND 19:53
PROVIDERS: ADMIT Emergency Medicine; ATTEND Hospitalist
DX: J44.0 Chronic obstructive pulmonary disease with (acute) lower respiratory infection (principal); J18.9 Pneumonia, unspecified organism; I24.8 Other forms of acute ischemic heart disease; I31.3 Pericardial effusion (noninflammatory); I48.91 Unspecified atrial fibrillation; I10 Essential (primary) hypertension; E03.9 Hypothyroidism, unspecified; Z85.3 Personal history of malignant neoplasm of breast; Z20.822 Contact with and (suspected) exposure to COVID-19; Z23 Encounter for immunization
CPT/HCPCS: 0240U; 36415; 71045; 71275; 80048; 80053; 80076; 81003; 81015; 82728; 83605; 83735; 84132; 84145; 84436; 84439; 84443; 84484; 85025; 85610; 85730; 86140; 87040; 87070; 87081; 87086; 87088; 90471; 93005; 93306; 96361; 96365; 96375; 97116; 97161; 97530; 99284; J0360; J1160; J1650; J2543; J2930; J3475; J3480; J7030; J7040; Q2035; Q9967

== ENCOUNTER 2021-09-06 19:46 | Inpatient (IN) | payer OTHER, MEDICARE ==
--- OUTSIDE RECORDS SUMMARY | 2021-09-06 19:51 | XMS REPORT | Continuity of Care Document ---
:1940 Author Organization [facility] t Address [facility] Bill Amaya [address] [place] [address] Care Team Providers Name Role Phone MARBELLA HANKS Primary Care Physician Unavailable MS RG Attending Clinician Unavailable MARBELLA HANKS Attending Clinician Unavailable MS RG Admitting Clinician Unavailable MARBELLA HANKS Admitting Clinician Unavailable Payers Payer Name Policy Type Policy Number Effective Date Expiration Date S ource 0500 [id number] 1959 00:00:00 0100 [id number] 1959 00:00:00 MEDICARE A B [id number] 2003 00:00:00 [facility] [id number] 2021 HEALTHCARE 00:00:00 Problems This patient has no known problems. Allergies, Adverse Reactions, Alerts Allergy Allergy Status Severity Reaction(s) Onset Inactive Treating Comm ents Source Name Type Date Date Clinician CIPROFLO All[facility] NITROFUR Allergy [facility]CRO[facility] STAL 00 Center NITROFUR Allergy [facility] DERIV[facility] VE 00 Center QUINOLON Allergy Active [facility] Medications This patient has no known medications. Vital Signs Vital Name Observation Time Observation Value Comments Source WEIGHT 2021-07-14 04:00:00 72.213 kg WEIGHT 2021-07-12 07:05:00 68.8 kg WEIGHT 2021-07-11 01:17:00 68.947 kg HEIGHT 2021-07-11 01:17:00 167.6 cm WEIGHT 2021-07-14 04:00:00 72.213 kg WEIGHT 2021-07-12 07:05:00 68.8 kg WEIGHT 2021-07-11 01:17:00 68.947 kg HEIGHT 2021-07-11 01:17:00 167.6 cm Procedures This patient has no known procedures. Encounters Start End Encounter Admission Attending Care Care Encounter Source Date/Time Date/Time Type Type Clinicians Facility Department ID 2021-08-02 Inpatient Carmelo DIEZ [facility] RAD [id number] [facility] 10:15:00 [facility] 2021-07-11 2021-07-18 Inpatient MARY CHRISTENSEN [facility] Neurology 20 [id number] [facility] 00:14:00 15:30:00 Results Test Description Test Time Test Comments Results Result Comments Source CYTOLOGY 2021-07-18 Medical Cytology 15:09:25 Report Case: [id number] Authorizing Provider: Mickey Alba MD Collected: 07/16/2021 03:37 PM Ordering Location: [address] Med/Surg Received: 07/17/2021 08:18 AM Pathologist: Vicky Souza MD Specimen: Pleural, Right RIGHT PLEURAL FLUID (CYTOSPINS AND CELL BLOCK): - NEGATIVE FOR MALIGNANCY Signing Pathologist Direct Phone Line: [phone] ically signed by Vicky Souza MD on 07/18/2021 at 3:09 [id number], [id number] pleural effusion, altered mental status, hypercarbic respiratory failure.RIGHT PLEURAL FLUIDReceived 350 mls gelatinous aissatou fluid; prepared 4 cytospins and cell block(A2) - the cell block was fixed in formalin at 4:30 pm on 07/17/2021erformed. [facility], [address] [place] [address], [facility], Department of Pathology, [address] [place] [address] [place] [address], [facility], [facility] of [facility]ology, [address] [place] [address], POCT-GLUCOSE METER 2021-07-18 11:26:53 Test Item Value Reference Range Interpretation Comme nts POC-GLUCOSE METER (BEAKER) 189 mg/dL 70-110 H : Notified RN/MD: TESTED AT [facility] 1317 (test code = 1538) [facility] [address]: Hatch Supervisor/Techni сергей ID = [id number] for Bobby Ortega BODY FLUID CULTURE + GRAM [id number] 10:35:28 Test Item Value Reference Range Interpretation Comments CULTURE (BEAKER) (test No growth code = 1095) GRAM STAIN RESULT No White blood cells (BEAKER) (test code = seen 1123) GRAM STAIN RESULT No organisms seen (BEAKER) (test code = 64093) SARS-COV2/RT-PCR ([facility])2021-07-18 09:57:45 Test Item Value Reference Range Interpretation Comments SARS-COV2/RT-PCR Negative Negative The SARS-Co V-2 target (test code = nucleic acids a re not [id number]) detected in thi s specimen. Negative result s do not preclude SARS-C oV-2 infection and s hould not be used as the grace e basis for patient managem ent decisions. Nega tive results must be combine d with clinical observ ations, patient history , and epidemiological information. A false negativ e result may occur if a spec imen is improperly dorothy ected, transported or handled. This SARS CoV-2 test is a rapid, real-linda e RT-PCR test intended for th e qualitative detection of nu cleic acid from SARS-CoV-2 in a nasopharyngeal swab specimen collected from individuals suspected of CO VID-19 by their healthcar e provider. This test has been authorized by FDA under an EUA for use by authorized laboratories. This test is only authorized for the duration of the declaration that circumstances exist justifying the authorization of emergency use of in vitro diagnostic tests for detection and/or diagnosis of COVID-19 under Section 564(b)(1) of the Federal Food, Drug and Cosmetic Act, 21 U.S.C. 360bbb- 3(b)(1), unless the authorization is terminated or revoked sooner. Fact Sheet for Healthcare Providers: https://www.[employer]/Documents/Xpert%20Xpress%20SARS%20CoV-2/Fact%20Sheets/302-3802%20SARS-COV -2%20HEALTHCARE%20PROVIDERS%20FACT%20SHEET.pdf Fact Sheet for Healthcare Patients: https://www.[employer] Mind/Documents/Xpert %20Xpress%20SARS%20CoV-2/Fact%20Sheets/302-3801%22WDUA-BPV-2%20PATIENT%20FACT%20 SHEET.pdfBLOOD GAS, [id number] 09:25:24 Test Item Value Reference Range Interpretation Comments PH ARTERIAL (BEAKER) (test code = 7.43 7.35-7.45 383) PCO2 ARTERIAL (BEAKER) (test code 73 mm Hg 35-45 HH = 384) PO2 ARTERIAL (BEAKER) (test code 133 mm Hg 80-90 H = 385) O2 SATURATION ARTERIAL (BEAKER) 98.6 % 96.0-97.0 H (test code = 386) HCO3 ARTERIAL (BEAKER) (test code 47 mmol/L 21-29 HH = 388) BASE EXCESS ARTERIAL (BEAKER) 18.2 mmol/L -2.0-3.0 H (test code = 387) PATIENT TEMPERATURE (BEAKER) 37.0 (test code = 1818) FIO2 (BEAKER) (test code = 1819) 36.0 POCT-GLUCOSE [id number] 07:31:09 Test Item Value Reference Range Interpretation Comments POC-GLUCOSE METER 108 mg/dL 70-110 : Notified RN/MD: TESTED (BEAKER) (test code AT [facility] [address] [place] [address] = 1538) [facility] [address]: Hatch Supervisor/Techni сергей ID = [id number] for Bobby Carmona CBC W/PLT COUNT & AUTO [id number] 05:35:32 Test Item Value Reference Range Interpretation Comments WHITE BLOOD CELL COUNT 6.0 K/ L 4.0-10.0 (BEAKER) (test code = 775) RED BLOOD CELL COUNT 3.32 M/ L 4.00-5.00 L (BEAKER) (test code = 761) HEMOGLOBIN (BEAKER) 12.1 GM/DL 12.0-15.5 (test code = 410) HEMATOCRIT (BEAKER) 37.3 % 36.0-46.0 (test code = 411) MEAN CORPUSCULAR VOLUME 112.3 fL 82.0-99.0 H (BEAKER) (test code = 753) MEAN CORPUSCULAR 36.4 pg 27.0-33.0 H HEMOGLOBIN (BEAKER) (test code = 751) MEAN CORPUSCULAR 32.4 GM/DL 32.0-36.0 HEMOGLOBIN CONC (BEAKER) (test code = 752) RED CELL DISTRIBUTION 17.9 % 12.0-15.0 H WIDTH (BEAKER) (test code = 412) PLATELET COUNT (BEAKER) 43 K/CU MM 150-430 L HIST ADI OF LOW PLT (test code = 756) MEAN PLATELET VOLUME 11.6 fL 6.0-11.5 H (BEAKER) (test code = 754) NUCLEATED RED BLOOD 0 /100 WBC 0-0 CELLS (BEAKER) (test code = 413) NEUTROPHILS RELATIVE 86 % PERCENT (BEAKER) (test code = 429) LYMPHOCYTES RELATIVE 7 % PERCENT (BEAKER) (test code = 430) MONOCYTES RELATIVE 7 % PERCENT (BEAKER) (test code = 431) EOSINOPHILS RELATIVE 0 % PERCENT (BEAKER) (test code = 432) BASOPHILS RELATIVE 0 % PERCENT (BEAKER) (test code = 437) NEUTROPHILS ABSOLUTE 5.17 K/ L 1.80-8.00 COUNT (BEAKER) (test code = 670) LYMPHOCYTES ABSOLUTE 0.41 K/ L 1.48-4.50 L COUNT (BEAKER) (test code = 414) MONOCYTES ABSOLUTE COUNT 0.39 K/ L 0.00-1.30 (BEAKER) (test code = 415) EOSINOPHILS ABSOLUTE 0.01 K/ L 0.00-0.50 COUNT (BEAKER) (test code = 416) BASOPHILS ABSOLUTE COUNT 0.00 K/ L 0.00-0.20 (BEAKER) (test code = 417) IMMATURE 1 % 0-0 H GRANULOCYTES-RELATIVE PERCENT (BEAKER) (test code = 2801) COMPREHENSIVE METABOLIC [id number] 05:34:13 Test Item Value Reference Range Interpretation Comments TOTAL PROTEIN 5.1 gm/dL 6.0-8.5 L (BEAKER) (test code = 770) ALBUMIN (BEAKER) 2.8 g/dL 3.5-5.0 L (test code = 1145) ALKALINE PHOSPHATASE 55 U/L 30-115 (BEAKER) (test code = 346) BILIRUBIN TOTAL 0.8 mg/dL 0.1-1.2 (BEAKER) (test code = 377) SODIUM (BEAKER) (test 141 meq/L 135-148 code = 381) POTASSIUM (BEAKER) 4.5 meq/L 3.6-5.5 (test code = 379) CHLORIDE (BEAKER) 88 meq/L 98-106 L (test code = 382) CO2 (BEAKER) (test 49 meq/L 20-29 HH code = 355) BLOOD UREA NITROGEN 35 mg/dL 10-26 H (BEAKER) (test code = 354) CREATININE (BEAKER) 0.91 mg/dL 0.50-1.20 (test code = 358) GLUCOSE RANDOM 126 mg/dL 70-110 H (BEAKER) (test code = 652) CALCIUM (BEAKER) 9.1 mg/dL 8.5-10.5 (test code = 697) AST (SGOT) (BEAKER) 12 U/L 5-40 (test code = 353) ALT (SGPT) (BEAKER) 24 U/L 5-50 (test code = 347) EGFR (BEAKER) (test 59 mL/min/1.73 ESTIMA FAISAL GFR IS code = 1092) sq m NOT ACCURATE CREATININE CLEARANCE IN PREDICTING GLOMERULAR FILTRATION RATE . ESTIMATED GFR I S NOT APPLICABLE FOR DIALYSIS PATIEN TS. Hatch Supervisor ID - NSUVAGIYAOperator ID - NSUVAGIYAOperator ID - NSUVAGIYAOperator ID - NSUVAGIYAOperatorID - NSUVAGIYAOperator ID - NSUVAGIYAOperator ID - NSUVAGIYAOperator ID - NSUVAGIYAOperator ID - NSUVAGIYAOperator ID - NSUVAGIYAOperator ID - NSUVAGIYAOperator ID - NSUVAGIYAOperator ID - NSUVAGIYAOperator ID - NSUVAGIYAOperator ID - NSUVAGIYAOperator ID - NSUVAGIYAOperator ID - [id number] 05:26:28 Test Item Value Reference Range Interpretation Comments MAGNESIUM (BEAKER) (test code = 2.2 mg/dL 1.5-3.0 627) Hatch Supervisor ID - NSUVAGIYAOperator ID - NSUVAGIYAOperator ID - NSUVAGIYAOperator ID - [id number] 05:23:05 Test Item Value Reference Range Interpretation Comments PHOSPHORUS (BEAKER) (test code = 2.5 mg/dL 2.5-4.5 604) Hatch Supervisor ID - NSUVAGIYAPOCT-GLUCOSE [id number] 20:24:34 Test Item Value Reference Range Interpretation Comments POC-GLUCOSE METER 165 mg/dL 70-110 H : TESTED A T [facility] 1317 (BEAKER) (test code [address], = 1538) [facility] [address]: Hatch Supervisor/Techni сергей ID = [id number] for Zuleika Montenegro U/S, ABDOMINAL, [id number] 16:58:00Laterality?->Left Reason for exam:- >moderate Lt pleural effusion Should this be performed at the bedside?- >Yes Labs to be Ordered:->No Labs Needed [facility] 1940 Sex: FFINAL REPORT TECHNIQUE: Grayscale ultrasound of the left chest. INDICATION: Lt pleural effusion Evaluation. COMPARISON: None. DISCUSSION/IMPRESSION: Small amount of fluid was seen within the base of the left pleural space.Removal of small volume of fluid unlikely to the patient clinically at this time. Signed: Efe Muñoz Verified Date/Time: 07/17/2021 16:58:00 Reading Location: [facility] Radiology Reading Room POCT-GLUCOSE [id number] 16:20:28 Test Item Value Reference Range Interpretation Comments POC-GLUCOSE METER 201 mg/dL 70-110 H : TESTED A T [facility] 1317 (BEAKER) (test code [address], = 1538) [facility] [address]: Hatch Supervisor/Techni сергей ID = [id number] for Ali, Aissatou RAD, CHEST, 1 VIEW, NON [id number] 13:04:00Reason for exam:->sob [facility] 1940 Sex: FFINAL REPORT Exam: RAD, CHEST, 1 VIEW, NON DEPTDate: 07/17/2021 1:01 PM Indication:sobComparison: 17 hours prior FINDINGS: Lines/Tubes/Devices: Right- sided PICC line in place with distal tip projecting over the left brachycephalic vein. Overlying EKG leads. Lungs/pleura:Prominent/indistinct pulmonary vascularity. Improved right base aeration. Left base airspace opacity with small left-sided effusion. No pneumothorax. Heart/Mediastinum:Unchanged Bones/Soft Tissues: No acute osseous abnormality. Upper abdomen: Unremarkable. IMPRESSION:Right-sided PICC in stable position.Prominent/indistinct pulmonary vascularity, overload/interstitial edema.Improved right base aeration.Left base airspace opacity with small left-sided effusion. Signed: Efe Muñoz MDReport Verified Date/Time: 07/17/2021 13:04:03 Reading Location: [facility] Radiology Reading Room POCT-GLUCOSE [id number] 11:17:50 Test Item Value Reference Range Interpretation Comments POC-GLUCOSE METER 205 mg/dL 70-110 H : TESTED A T [facility] 1317 (BEAKER) (test code [address], = 1538) [facility] [place] [address]: Hatch Supervisor/Techni сергей ID = [id number] for Ali, Aissatou BODY FLUID CELL COUNT WITH [id number] 09:37:56 Test Item Value Reference Range Interpretation Comments APPEARANCE FLUID Hazy Clear A (BEAKER) (test code = 510) COLOR FLUID Yellow Colorless, Straw A (BEAKER) (test code = 511) RBC FLUID (BEAKER) 1050 /cu mm See_Comment H [Automat ed (test code = 513) message] T he system which generated this result transmit faisal reference range : <=1. The refere nce range was not u sed to interpret th is result as normal/abnormal . ADJUSTED WBC FLUID 236 /cu mm See_Comment H [Automat ed (BEAKER) (test message] The code = 1691) system which generated this result transmit faisal reference range : <=5. The refere nce range was not u sed to interpret th is result as normal/abnormal . LINING CELLS 14 /cu mm See_Comment H [Automated (BEAKER) (test message] The code = 1590) system which generated this result transmit faisal reference range : <=1. The refere nce range was not u sed to interpret th is result as normal/abnormal . NEUTROPHILS FLUID 4 % (BEAKER) (test code = 1656) LYMPHS FLUID 51 % (BEAKER) (test code = 488) MONO/MACROPHAGE 45 % FLUID (BEAKER) (test code = 489) EOSINOPHILS FLUID 0 % (BEAKER) (test code = 491) BASO FLUID 0 % (BEAKER) (test code = 492) INTERPRETATION-210 Reactive (BEAKER) (test mesothelial cells code = 2619) present. Negative for malignancy [id number] Christina Frey (BEAKER) (test M.D. (electronic code = 2620) signature) CONTAINER BODY EDTA Tube FLUID (BEAKER) (test code = 2873) BLOOD GAS, [id number] 09:26:40 Test Item Value Reference Range Interpretation Comments PH ARTERIAL (BEAKER) (test code = 7.45 7.35-7.45 383) PCO2 ARTERIAL (BEAKER) (test code 72 mm Hg 35-45 HH = 384) PO2 ARTERIAL (BEAKER) (test code 79 mm Hg 80-90 L = 385) O2 SATURATION ARTERIAL (BEAKER) 95.3 % 96.0-97.0 L (test code = 386) HCO3 ARTERIAL (BEAKER) (test code 49 mmol/L 21-29 HH = 388) BASE EXCESS ARTERIAL (BEAKER) 21.1 mmol/L -2.0-3.0 H (test code = 387) PATIENT TEMPERATURE (BEAKER) 37.5 (test code = 1818) FIO2 (BEAKER) (test code = 1819) 35.0 POCT-GLUCOSE [id number] 07:57:56 Test Item Value Reference Range Interpretation Comments POC-GLUCOSE METER 100 mg/dL 70-110 : TESTED A T [facility] (BEAKER) (test code [facility] [address], = 1538) [facility] [address]: Hatch Supervisor/Techni сергей ID = [id number] for Aissatou Holloway COMPREHENSIVE METABOLIC [id number] 04:30:48 Test Item Value Reference Range Interpretation Comments TOTAL PROTEIN 5.2 gm/dL 6.0-8.5 L (BEAKER) (test code = 770) ALBUMIN (BEAKER) 2.8 g/dL 3.5-5.0 L (test code = 1145) ALKALINE PHOSPHATASE 52 U/L 30-115 (BEAKER) (test code = 346) BILIRUBIN TOTAL 0.8 mg/dL 0.1-1.2 (BEAKER) (test code = 377) SODIUM (BEAKER) (test 145 meq/L 135-148 code = 381) POTASSIUM (BEAKER) 4.5 meq/L 3.6-5.5 (test code = 379) CHLORIDE (BEAKER) 93 meq/L 98-106 L (test code = 382) CO2 (BEAKER) (test 42 meq/L 20-29 HH code = 355) BLOOD UREA NITROGEN 37 mg/dL 10-26 H (BEAKER) (test code = 354) CREATININE (BEAKER) 0.92 mg/dL 0.50-1.20 (test code = 358) GLUCOSE RANDOM 118 mg/dL 70-110 H (BEAKER) (test code = 652) CALCIUM (BEAKER) 9.3 mg/dL 8.5-10.5 (test code = 697) AST (SGOT) (BEAKER) 13 U/L 5-40 (test code = 353) ALT (SGPT) (BEAKER) 32 U/L 5-50 (test code = 347) EGFR (BEAKER) (test 58 mL/min/1.73 ESTIMA FAISAL GFR IS code = 1092) sq m NOT ACCURATE CREATININE CLEARANCE IN PREDICTING GLOMERULAR FILTRATION RATE . ESTIMATED GFR I S NOT APPLICABLE FOR DIALYSIS PATIEN TS. Hatch Supervisor ID - ADMINOperator ID - ADMINOperator ID - ADMINOperator ID - ADMINOperator ID - ADMINOperator ID - ADMINOperator ID - ADMINOperator ID - ADMINOperator ID - ADMINOperator ID - ADMINOperator ID- ADMINOperator ID - ADMINOperator ID - ADMINOperator ID - ADMINOperator ID - ADMINOperator ID - ADMI NOperator ID - [id number] 04:23:25 Test Item Value Reference Range Interpretation Comments MAGNESIUM (BEAKER) (test code = 2.3 mg/dL 1.5-3.0 627) Hatch Supervisor ID - ADMINOperator ID - ADMINOperator ID - ADMINOperator ID - ADMIN [id number] 04:20:00 Test Item Value Reference Range Interpretation Comments PHOSPHORUS (BEAKER) (test code = 2.2 mg/dL 2.5-4.5 L 604) Hatch Supervisor ID - ADMINCBC W/PLT COUNT & AUTO [id number] 04:03:34 Test Item Value Reference Range Interpretation Comments WHITE BLOOD CELL COUNT (BEAKER) 5.3 K/ L 4.0-10.0 (test code = 775) RED BLOOD CELL COUNT (BEAKER) 3.38 M/ L 4.00-5.00 L (test code = 761) HEMOGLOBIN (BEAKER) (test code = 12.5 GM/DL 12.0-15.5 410) HEMATOCRIT (BEAKER) (test code = 38.5 % 36.0-46.0 411) MEAN CORPUSCULAR VOLUME (BEAKER) 113.9 fL 82.0-99.0 H (test code = 753) MEAN CORPUSCULAR HEMOGLOBIN 37.0 pg 27.0-33.0 H (BEAKER) (test code = 751) MEAN CORPUSCULAR HEMOGLOBIN CONC 32.5 GM/DL 32.0-36.0 (BEAKER) (test code = 752) RED CELL DISTRIBUTION WIDTH 18.2 % 12.0-15.0 H (BEAKER) (test code = 412) PLATELET COUNT (BEAKER) (test code 40 K/CU MM 150-430 L = 756) MEAN PLATELET VOLUME (BEAKER) 10.9 fL 6.0-11.5 (test code = 754) NUCLEATED RED BLOOD CELLS (BEAKER) 0 /100 WBC 0-0 (test code = 413) NEUTROPHILS RELATIVE PERCENT 83 % (BEAKER) (test code = 429) LYMPHOCYTES RELATIVE PERCENT 8 % (BEAKER) (test code = 430) MONOCYTES RELATIVE PERCENT 8 % (BEAKER) (test code = 431) EOSINOPHILS RELATIVE PERCENT 0 % (BEAKER) (test code = 432) BASOPHILS RELATIVE PERCENT 0 % (BEAKER) (test code = 437) NEUTROPHILS ABSOLUTE COUNT 4.44 K/ L 1.80-8.00 (BEAKER) (test code = 670) LYMPHOCYTES ABSOLUTE COUNT 0.44 K/ L 1.48-4.50 L (BEAKER) (test code = 414) MONOCYTES ABSOLUTE COUNT (BEAKER) 0.42 K/ L 0.00-1.30 (test code = 415) EOSINOPHILS ABSOLUTE COUNT 0.00 K/ L 0.00-0.50 (BEAKER) (test code = 416) BASOPHILS ABSOLUTE COUNT (BEAKER) 0.00 K/ L 0.00-0.20 (test code = 417) IMMATURE GRANULOCYTES-RELATIVE 1 % 0-0 H PERCENT (BEAKER) (test code = 2801) POCT-GLUCOSE [id number] 00:36:14 Test Item Value Reference Range Interpretation Comments POC-GLUCOSE METER 120 mg/dL 70-110 H : TESTED A T [facility] (BEAKER) (test code [address], = 1538) [facility] [address]: Hatch Supervisor/Techni сергей ID = [id number] for Ty hilliard Isha POCT-GLUCOSE [id number] 20:35:42 Test Item Value Reference Range Interpretation Comments POC-GLUCOSE METER 149 mg/dL 70-110 H : TESTED A T [facility] [address] (BEAKER) (test code [address], = 1538) [facility] [address]: Hatch Supervisor/Techni сергей ID = [id number] for Isha Yoder POCT-GLUCOSE [id number] 17:31:45 Test Item Value Reference Range Interpretation Comments POC-GLUCOSE METER 198 mg/dL 70-110 H : TESTED A T [facility] (BEAKER) (test code [address], = 1538) [facility] [address]: Hatch Supervisor/Techni сергей ID = [id number] for Ali, Aissatou LACTATE DEHYDROGENASE (LDH), BODY [id number] 16:14:06 Test Item Value Reference Range Interpretation Comments LACTATE DEHYDROGENASE FLUID (BEAKER) 67 U/L (test code = 634) Absence of reference range indicates that normals have not been defined.Assay performance has not been validated for this type of specimen.Hatch Supervisor ID - ADMIN PROTEIN, BODY [id number] 16:13:50 Test Item Value Reference Range Interpretation Comments PROTEIN FLUID (BEAKER) (test code = 2.1 g/dL 579) Absence of reference range indicates that normals have not been defined.Assay performance has not been validated for this type of specimen.Hatch Supervisor ID - ADMIN GLUCOSE, BODY [id number] 16:12:05 Test Item Value Reference Range Interpretation Comments GLUCOSE, BODY FLUID (BEAKER) (test 158 mg/dL code = 1528) Absence of reference range indicates that normals have not been defined.Assay performance has not been validated for this type of specimen.Hatch Supervisor ID - ADMIN U/S, [id number] 16:01:00Laterality?->RightReason for exam:- >Right pleural effusionLabs to be Ordered:->CytologyLabsto be Ordered:- >Body Fluid Culture (w/Gram Stain, C\T\S)Labs to be Ordered:->Glucose+LDH+ProteinLabs to be Ordered:->Cell Count [facility] 1940 Sex: FFINAL REPORT Ultrasound guided right thoracentesis Clinical History: Moderate right pleural effusion. Modality: Ultrasound. Sedation: None. Roller Machine Operator: To Solano M.D. Home Maker: None. Estimated Blood Loss: 1cc Specimen: 900 cc of aissatou pleural fluid. Technique: Informed consent was obtained. The risks of pain, bleeding, infection, lung c ollapse/pneumothorax, injury to adjacent structures, and adverse medication reactions were discussedwith the patient. The patient's right hemithorax was scanned from the back, with the patient left lateral decubitus. After the largest fluid pocket area was marked, the skin was prepped and draped inthe usual sterile manner. The area was anesthetized with 1% lidocaine, a 5 F one- step catheter was advanced into the pleural space under ultrasound guidance. After completion of drainage, the catheterwas removed. There was no evidence of immediate complication. Post procedure chest x-ray is pending. Patient disposition: Patient was discharged from the ultrasound department after the thoracentesis in good condition. Impression:Successful and uncomplicated ultrasound guided right thoracentesis.Signed: To Solano MDReport Verified Date/Time: 07/16/2021 16:01:40 Reading Location: [facility] Radiology Reading Room RAD, CHEST, 1 VIEW, NON [id number] 15:46:00Reason for exam:->s/p right thoracentesisShould this be performed at the bedside?->Yes [facility] 1940 Sex: FFINAL REPORT TECHNIQUE: Frontal view of the chest. INDICATION: s/p right thoracentesis COMPARISON:Earlier the same day DISCUSSION:Limited evaluation due to portable technique. Lines and hardware: Stable.Heart and mediastinum: Stable.Lungs and pleura: Interval improvement in the right pleural effusion. Stable small to moderate left pleural effusion. No pneumothorax. Stable vascular congestive changes.Soft tissues and bones: No acute abnormality. IMPRESSION:Negative for pneumothorax status post right thoracentesis. Small residual right and moderate left effusions are noted with vascular congestive changes. Signed: To Solano MDReport Verified Date/Time: 07/16/2021 15:46:20 Reading Location: [facility] Radiology Reading Room BLOOD GAS, [id number] 13:25:52 Test Item Value Reference Range Interpretation Comments PH ARTERIAL (BEAKER) (test code = 7.29 7.35-7.45 L 383) PCO2 ARTERIAL (BEAKER) (test code 95 mm Hg 35-45 HH = 384) PO2 ARTERIAL (BEAKER) (test code 70 mm Hg 80-90 L = 385) O2 SATURATION ARTERIAL (BEAKER) 90.9 % 96.0-97.0 L (test code = 386) HCO3 ARTERIAL (BEAKER) (test code 45 mmol/L 21-29 HH = 388) BASE EXCESS ARTERIAL (BEAKER) 13.1 mmol/L -2.0-3.0 H (test code = 387) PATIENT TEMPERATURE (BEAKER) 37.0 (test code = 1818) FIO2 (BEAKER) (test code = 1819) 32.0 RAD, CHEST, 1 VIEW, NON [id number] 11:49:00Reason for exam:->pleural effusionShould this be performed at the bedside?->Yes [facility] : 1940 Sex: FFINAL REPORT TECHNIQUE: Frontal view of the chest. INDICATION: pleural effusion COMPARISON:07/14/2021 DISCUSSION:Limited evaluation due to portable technique. Lines and hardware: Right arm PICC now projects over the left brachiocephalic vein. Overlying EKG leads are noted.Heart and mediastinum: Stable.Lungs and pleura: Stable bilateral pleural effusions with overlying atel ectasis. Stable vascular congestive changes. No pneumothorax.Soft tissues and bones: No acute abnormality. IMPRESSION:Right arm PICC with tip now projecting over the left brachiocephalic vein.Otherwisestable exam. Signed: To Solano Verified Date/Time: 07/16/2021 11:49:55 Reading Location: [facility] Radiology Reading Room POCT-GLUCOSE [id number] 11:40:37 Test Item Value Reference Range Interpretation Comments POC-GLUCOSE METER 143 mg/dL 70-110 H : TESTED A T [facility] 1317 (BEAKER) (test code [address], = 1538) [facility] 77 478: Hatch Supervisor/Techni сергей ID = [id number] for Misti Henderson BLOOD [id number] 09:34:30 Test Item Value Reference Range Interpretation Comments CULTURE (BEAKER) (test No growth in 5 days code = 1095) POCT-GLUCOSE [id number] 08:57:10 Test Item Value Reference Range Interpretation Comments POC-GLUCOSE METER 126 mg/dL 70-110 H : TESTED A T [facility] [address] (BEAKER) (test code [address], = 1538) [facility] [place] 77 478: Hatch Supervisor/Techni сергей ID = [id number] for Misti Henderson BLOOD [id number] 07:00:44 Test Item Value Reference Range Interpretation Comments CULTURE (BEAKER) (test No growth in 5 days code = 1095) COMPREHENSIVE METABOLIC [id number] 05:12:21 Test Item Value Reference Range Interpretation Comments TOTAL PROTEIN 5.8 gm/dL 6.0-8.5 L (BEAKER) (test code = 770) ALBUMIN (BEAKER) 3.1 g/dL 3.5-5.0 L (test code = 1145) ALKALINE PHOSPHATASE 68 U/L 30-115 (BEAKER) (test code = 346) BILIRUBIN TOTAL 0.7 mg/dL 0.1-1.2 (BEAKER) (test code = 377) SODIUM (BEAKER) (test 145 meq/L 135-148 code = 381) POTASSIUM (BEAKER) 4.7 meq/L 3.6-5.5 (test code = 379) CHLORIDE (BEAKER) 97 meq/L 98-106 L (test code = 382) CO2 (BEAKER) (test 45 meq/L 20-29 HH code = 355) BLOOD UREA NITROGEN 38 mg/dL 10-26 H (BEAKER) (test code = 354) CREATININE (BEAKER) 0.99 mg/dL 0.50-1.20 (test code = 358) GLUCOSE RANDOM 134 mg/dL 70-110 H (BEAKER) (test code = 652) CALCIUM (BEAKER) 9.7 mg/dL 8.5-10.5 (test code = 697) AST (SGOT) (BEAKER) 20 U/L 5-40 (test code = 353) ALT (SGPT) (BEAKER) 39 U/L 5-50 (test code = 347) EGFR (BEAKER) (test 54 mL/min/1.73 ESTIMA FAISAL GFR IS code = 1092) sq m NOT ACCURATE CREATININE CLEARANCE IN PREDICTING GLOMERULAR FILTRATION RATE . ESTIMATED GFR I S NOT APPLICABLE FOR DIALYSIS PATIEN TS. Hatch Supervisor ID - LITOOperator ID - LITOOperator ID - LITOOperator ID - LITOOperator ID - LITOOperator ID - LITOOperator ID - LITOOperator ID - LITOOperator ID - LITOOperator ID - LITOOperator ID - LITOOperator ID - LITOOperator ID - LITOOperator ID - LITOOperator ID - LITOOperator ID - LITOCBC W/PLT COUNT & AUTO [id number] 05:10:07 Test Item Value Reference Range Interpretation Comments WHITE BLOOD CELL COUNT (BEAKER) 5.8 K/ L 4.0-10.0 (test code = 775) RED BLOOD CELL COUNT (BEAKER) 3.38 M/ L 4.00-5.00 L (test code = 761) HEMOGLOBIN (BEAKER) (test code = 12.4 GM/DL 12.0-15.5 410) HEMATOCRIT (BEAKER) (test code = 39.9 % 36.0-46.0 411) MEAN CORPUSCULAR VOLUME (BEAKER) 118.0 fL 82.0-99.0 H (test code = 753) MEAN CORPUSCULAR HEMOGLOBIN 36.7 pg 27.0-33.0 H (BEAKER) (test code = 751) MEAN CORPUSCULAR HEMOGLOBIN CONC 31.1 GM/DL 32.0-36.0 L (BEAKER) (test code = 752) RED CELL DISTRIBUTION WIDTH 18.9 % 12.0-15.0 H (BEAKER) (test code = 412) PLATELET COUNT (BEAKER) (test code 43 K/CU MM 150-430 L = 756) MEAN PLATELET VOLUME (BEAKER) 10.6 fL 6.0-11.5 (test code = 754) NUCLEATED RED BLOOD CELLS (BEAKER) 0 /100 WBC 0-0 (test code = 413) NEUTROPHILS RELATIVE PERCENT 81 % (BEAKER) (test code = 429) LYMPHOCYTES RELATIVE PERCENT 9 % (BEAKER) (test code = 430) MONOCYTES RELATIVE PERCENT 10 % (BEAKER) (test code = 431) EOSINOPHILS RELATIVE PERCENT 0 % (BEAKER) (test code = 432) BASOPHILS RELATIVE PERCENT 0 % (BEAKER) (test code = 437) NEUTROPHILS ABSOLUTE COUNT 4.68 K/ L 1.80-8.00 (BEAKER) (test code = 670) LYMPHOCYTES ABSOLUTE COUNT 0.50 K/ L 1.48-4.50 L (BEAKER) (test code = 414) MONOCYTES ABSOLUTE COUNT (BEAKER) 0.58 K/ L 0.00-1.30 (test code = 415) EOSINOPHILS ABSOLUTE COUNT 0.00 K/ L 0.00-0.50 (BEAKER) (test code = 416) BASOPHILS ABSOLUTE COUNT (BEAKER) 0.01 K/ L 0.00-0.20 (test code = 417) IMMATURE GRANULOCYTES-RELATIVE 0 % 0-0 PERCENT (BEAKER) (test code = 2801) [id number] 05:09:50 Test Item Value Reference Range Interpretation Comments MAGNESIUM (BEAKER) (test code = 2.2 mg/dL 1.5-3.0 627) Hatch Supervisor ID - LITOOperator ID - LITOOperator ID - LITOOperator ID - ERICKA [id number] 05:06:18 Test Item Value Reference Range Interpretation Comments PHOSPHORUS (BEAKER) (test code = 1.7 mg/dL 2.5-4.5 L 604) Hatch Supervisor ID - LITOPOCT-GLUCOSE [id number] 22:22:04 Test Item Value Reference Range Interpretation Comments POC-GLUCOSE METER 159 mg/dL 70-110 H : TESTED A T [facility] [address] (BEAKER) (test code [address], = 1538) [place] [address]: Hatch Supervisor/Techni сергей ID = [id number] for Colin henry Elsi POCT-GLUCOSE [id number] 17:16:30 Test Item Value Reference Range Interpretation Comments POC-GLUCOSE METER 158 mg/dL 70-110 H : TESTED A T [facility] [address] (BEAKER) (test code [address], = 1538) [place] [address]: Hatch Supervisor/Techni сергей ID = [id number] for Saige Grimm POCT-GLUCOSE [id number] 11:52:30 Test Item Value Reference Range Interpretation Comments POC-GLUCOSE METER 222 mg/dL 70-110 H : TESTED A T [facility] [address] (BEAKER) (test code [address], = 1538) [place] [address]: Hatch Supervisor/Techni сергей ID = [id number] for Justa Leal POCT-GLUCOSE [id number] 08:15:20 Test Item Value Reference Range Interpretation Comments POC-GLUCOSE METER 143 mg/dL 70-110 H : TESTED A T [facility] (BEAKER) (test code [address], = 1538) [facility] [place] 77 478: Hatch Supervisor/Techni сергей ID = [id number] for Saige Grimm COMPREHENSIVE METABOLIC [id number] 06:03:12 Test Item Value Reference Range Interpretation Comments TOTAL PROTEIN 5.8 gm/dL 6.0-8.5 L (BEAKER) (test code = 770) ALBUMIN (BEAKER) 3.1 g/dL 3.5-5.0 L (test code = 1145) ALKALINE PHOSPHATASE 55 U/L 30-115 (BEAKER) (test code = 346) BILIRUBIN TOTAL 0.5 mg/dL 0.1-1.2 (BEAKER) (test code = 377) SODIUM (BEAKER) (test 150 meq/L 135-148 H code = 381) POTASSIUM (BEAKER) 4.9 meq/L 3.6-5.5 (test code = 379) CHLORIDE (BEAKER) 102 meq/L 98-106 (test code = 382) CO2 (BEAKER) (test 43 meq/L 20-29 HH code = 355) BLOOD UREA NITROGEN 41 mg/dL 10-26 H (BEAKER) (test code = 354) CREATININE (BEAKER) 1.08 mg/dL 0.50-1.20 (test code = 358) GLUCOSE RANDOM 128 mg/dL 70-110 H (BEAKER) (test code = 652) CALCIUM (BEAKER) 9.6 mg/dL 8.5-10.5 (test code = 697) AST (SGOT) (BEAKER) 25 U/L 5-40 (test code = 353) ALT (SGPT) (BEAKER) 36 U/L 5-50 (test code = 347) EGFR (BEAKER) (test 48 mL/min/1.73 ESTIMA FAISAL GFR IS code = 1092) sq m NOT ACCURATE CREATININE CLEARANCE IN PREDICTING GLOMERULAR FILTRATION RATE . ESTIMATED GFR I S NOT APPLICABLE FOR DIALYSIS PATIEN TS. Hatch Supervisor ID - [id number] ID - [id number] ID - QQXU86Ehgcvzhu ID - QPQG52Sdmwekoe ID - NDFV68Ljfxgsno ID - SWLS26Oxffbouf ID - ERDG80Wibhzdzx ID - QYJU82Jdwxhjpz ID - YFNQ44Nwrqfmke ID - IWUR48Xhfihawj ID - KMLB62Cicklyue ID - VYRS39Glbkmjyc ID - CRCG84Ppgpcawv ID - EYEM11Zbngwhgr ID - KAVP65Pwwqownc ID - [id number] 06:00:36 Test Item Value Reference Range Interpretation Comments MAGNESIUM (BEAKER) (test code = 2.3 mg/dL 1.5-3.0 627) Hatch Supervisor ID - [id number] ID - [id number] ID - GAPZ39Hwtlmric ID - [id number] 05:57:30 Test Item Value Reference Range Interpretation Comments PHOSPHORUS (BEAKER) (test code = 2.7 mg/dL 2.5-4.5 604) Hatch Supervisor ID - [id number] W/PLT COUNT & AUTO [id number] 05:41:09 Test Item Value Reference Range Interpretation Comments WHITE BLOOD CELL COUNT (BEAKER) 4.8 K/ L 4.0-10.0 (test code = 775) RED BLOOD CELL COUNT (BEAKER) 3.20 M/ L 4.00-5.00 L (test code = 761) HEMOGLOBIN (BEAKER) (test code = 11.9 GM/DL 12.0-15.5 L 410) HEMATOCRIT (BEAKER) (test code = 38.4 % 36.0-46.0 411) MEAN CORPUSCULAR VOLUME (BEAKER) 120.0 fL 82.0-99.0 H (test code = 753) MEAN CORPUSCULAR HEMOGLOBIN 37.2 pg 27.0-33.0 H (BEAKER) (test code = 751) MEAN CORPUSCULAR HEMOGLOBIN CONC 31.0 GM/DL 32.0-36.0 L (BEAKER) (test code = 752) RED CELL DISTRIBUTION WIDTH 19.3 % 12.0-15.0 H (BEAKER) (test code = 412) PLATELET COUNT (BEAKER) (test code 42 K/CU MM 150-430 L = 756) MEAN PLATELET VOLUME (BEAKER) 10.3 fL 6.0-11.5 (test code = 754) NUCLEATED RED BLOOD CELLS (BEAKER) 0 /100 WBC 0-0 (test code = 413) NEUTROPHILS RELATIVE PERCENT 90 % (BEAKER) (test code = 429) LYMPHOCYTES RELATIVE PERCENT 5 % (BEAKER) (test code = 430) MONOCYTES RELATIVE PERCENT 5 % (BEAKER) (test code = 431) EOSINOPHILS RELATIVE PERCENT 0 % (BEAKER) (test code = 432) BASOPHILS RELATIVE PERCENT 0 % (BEAKER) (test code = 437) NEUTROPHILS ABSOLUTE COUNT 4.30 K/ L 1.80-8.00 (BEAKER) (test code = 670) LYMPHOCYTES ABSOLUTE COUNT 0.22 K/ L 1.48-4.50 L (BEAKER) (test code = 414) MONOCYTES ABSOLUTE COUNT (BEAKER) 0.25 K/ L 0.00-1.30 (test code = 415) EOSINOPHILS ABSOLUTE COUNT 0.00 K/ L 0.00-0.50 (BEAKER) (test code = 416) BASOPHILS ABSOLUTE COUNT (BEAKER) 0.00 K/ L 0.00-0.20 (test code = 417) IMMATURE GRANULOCYTES-RELATIVE 1 % 0-0 H PERCENT (BEAKER) (test code = 2801) POCT-GLUCOSE [id number] 22:14:57 Test Item Value Reference Range Interpretation Comments POC-GLUCOSE METER 152 mg/dL 70-110 H : TESTED A T [facility] (BEAKER) (test code [facility], = 1538) [place] [address]: Hatch Supervisor/Techni сергей ID = [id number] for Colin henry Elsi POCT-GLUCOSE [id number] 16:33:49 Test Item Value Reference Range Interpretation Comments POC-GLUCOSE METER 153 mg/dL 70-110 H : TESTED A T [facility] (BEAKER) [facility] [place] [address]: Hatch Supervisor/Techni сергей ID = [id number] for Jessica Nicole POCT-GLUCOSE [id number] 12:51:29 Test Item Value Reference Range Interpretation Comments POC-GLUCOSE METER 126 mg/dL 70-110 H : TESTED A T [facility] [address] (BEAKER) (test code [facility], = 1538) [place] [id number]: Hatch Supervisor/Techni сергей ID = [id number] for Lauren Borja POCT-GLUCOSE [id number] 10:18:34 Test Item Value Reference Range Interpretation Comments POC-GLUCOSE METER 135 mg/dL 70-110 H : TESTED A T [facility] [address] (BEAKER) (test code [address], = 1538) [facility] [place] 77 [address]: Hatch Supervisor/Techni сергей ID = [id number] for Esther Prince RAD, CHEST, 1 VIEW, NON [id number] 08:39:00Reason for exam:->chf-bipap [facility] 1940 Sex: FFINAL REPORT RAD, CHEST, 1 VIEW, NON DEPT INDICATION: chf-bipap COMPARISON: Prior day's exam FINDINGS: Portable frontal view of the chest. IMPRESSION: Support Lines: PICC tip overlies the right atrium. Lungs and pleura: Bilateral effusions and adjacent atelectasis No significant pneumothorax. Heart and mediastinum: Stable contours. Additional findings: None. Signed: Tiffanie Smith Verified Date/Time: 07/14/2021 08:39:33 CBC W/PLT COUNT & AUTO [id number] 06:47:59 Test Item Value Reference Range Interpretation Comments WHITE BLOOD CELL COUNT (BEAKER) 5.7 K/ L 4.0-10.0 (test code = 775) RED BLOOD CELL COUNT (BEAKER) 3.10 M/ L 4.00-5.00 L (test code = 761) HEMOGLOBIN (BEAKER) (test code = 11.3 GM/DL 12.0-15.5 L 410) HEMATOCRIT (BEAKER) (test code = 37.1 % 36.0-46.0 411) MEAN CORPUSCULAR VOLUME (BEAKER) 119.7 fL 82.0-99.0 H (test code = 753) MEAN CORPUSCULAR HEMOGLOBIN 36.5 pg 27.0-33.0 H (BEAKER) (test code = 751) MEAN CORPUSCULAR HEMOGLOBIN CONC 30.5 GM/DL 32.0-36.0 L (BEAKER) (test code = 752) RED CELL DISTRIBUTION WIDTH 20.1 % 12.0-15.0 H (BEAKER) (test code = 412) PLATELET COUNT (BEAKER) (test code 44 K/CU MM 150-430 L = 756) MEAN PLATELET VOLUME (BEAKER) 11.2 fL 6.0-11.5 (test code = 754) NUCLEATED RED BLOOD CELLS (BEAKER) 0 /100 WBC 0-0 (test code = 413) NEUTROPHILS RELATIVE PERCENT 89 % (BEAKER) (test code = 429) LYMPHOCYTES RELATIVE PERCENT 6 % (BEAKER) (test code = 430) MONOCYTES RELATIVE PERCENT 4 % (BEAKER) (test code = 431) EOSINOPHILS RELATIVE PERCENT 0 % (BEAKER) (test code = 432) BASOPHILS RELATIVE PERCENT 0 % (BEAKER) (test code = 437) NEUTROPHILS ABSOLUTE COUNT 5.10 K/ L 1.80-8.00 (BEAKER) (test code = 670) LYMPHOCYTES ABSOLUTE COUNT 0.32 K/ L 1.48-4.50 L (BEAKER) (test code = 414) MONOCYTES ABSOLUTE COUNT (BEAKER) 0.25 K/ L 0.00-1.30 (test code = 415) EOSINOPHILS ABSOLUTE COUNT 0.00 K/ L 0.00-0.50 (BEAKER) (test code = 416) BASOPHILS ABSOLUTE COUNT (BEAKER) 0.00 K/ L 0.00-0.20 (test code = 417) IMMATURE GRANULOCYTES-RELATIVE 1 % 0-0 H PERCENT (BEAKER) (test code = 2801) COMPREHENSIVE METABOLIC [id number] 05:12:34 Test Item Value Reference Range Interpretation Comments TOTAL PROTEIN 5.9 gm/dL 6.0-8.5 L (BEAKER) (test code = 770) ALBUMIN (BEAKER) 3.1 g/dL 3.5-5.0 L (test code = 1145) ALKALINE PHOSPHATASE 60 U/L 30-115 (BEAKER) (test code = 346) BILIRUBIN TOTAL 0.5 mg/dL 0.1-1.2 (BEAKER) (test code = 377) SODIUM (BEAKER) (test 151 meq/L 135-148 H code = 381) POTASSIUM (BEAKER) 4.4 meq/L 3.6-5.5 (test code = 379) CHLORIDE (BEAKER) 102 meq/L 98-106 (test code = 382) CO2 (BEAKER) (test 41 meq/L 20-29 HH code = 355) BLOOD UREA NITROGEN 38 mg/dL 10-26 H (BEAKER) (test code = 354) CREATININE (BEAKER) 1.18 mg/dL 0.50-1.20 (test code = 358) GLUCOSE RANDOM 162 mg/dL 70-110 H (BEAKER) (test code = 652) CALCIUM (BEAKER) 9.3 mg/dL 8.5-10.5 (test code = 697) AST (SGOT) (BEAKER) 16 U/L 5-40 (test code = 353) ALT (SGPT) (BEAKER) 19 U/L 5-50 (test code = 347) EGFR (BEAKER) (test 44 mL/min/1.73 ESTIMA FAISAL GFR IS code = 1092) sq m NOT ACCURATE CREATININE CLEARANCE IN PREDICTING GLOMERULAR FILTRATION RATE . ESTIMATED GFR I S NOT APPLICABLE FOR DIALYSIS PATIEN TS. Hatch Supervisor ID - JUSTINOperator ID - JUSTINOperator ID - JUSTINOperator ID - JUSTINOperator ID - JUSTINOperator ID - JUSTINOperator ID - JUSTINOperator ID - JUSTINOperator ID - JUSTINOperator ID - JUSTINOperator ID - JUSTINOperator ID - JUSTINOperator ID - JUSTINOperator ID - JUSTINOperator ID - JUSTINOperator ID - [id number] 05:11:37 Test Item Value Reference Range Interpretation Comments MAGNESIUM (BEAKER) (test code = 2.3 mg/dL 1.5-3.0 627) Hatch Supervisor ID - JUSTINOperator ID - JUSTINOperator ID - JUSTINOperator ID - ERASMO [id number] 05:08:09 Test Item Value Reference Range Interpretation Comments PHOSPHORUS (BEAKER) (test code = 3.1 mg/dL 2.5-4.5 604) Hatch Supervisor ID - JUSTINPOCT-GLUCOSE [id number] 21:44:00 Test Item Value Reference Range Interpretation Comments POC-GLUCOSE METER 131 mg/dL 70-110 H : TESTED A T [facility] 1317 (BEAKER) (test code [facility], = 1538) [place] [address]: Hatch Supervisor/Techni сергей ID = [id number] for Whitney Sullivan POCT-GLUCOSE [id number] 16:34:30 Test Item Value Reference Range Interpretation Comments POC-GLUCOSE METER 150 mg/dL 70-110 H : Notified RN/MD: TESTED (BEAKER) (test code AT [facility] [address] = 1538) [place] [address]: Hatch Supervisor/Techni сергей ID = [id number] for Bobby Carmona POCT-GLUCOSE [id number] 14:53:54 Test Item Value Reference Range Interpretation Comments POC-GLUCOSE METER 151 mg/dL 70-110 H : TESTED A T [facility] 1317 (BEAKER) (test code [facility], = 1538) [place] [address]: Hatch Supervisor/Techni сергей ID = [id number] for Michelle Dobbins COMPREHENSIVE METABOLIC [id number] 04:50:23 Test Item Value Reference Range Interpretation Comments TOTAL PROTEIN 5.8 gm/dL 6.0-8.5 L (BEAKER) (test code = 770) ALBUMIN (BEAKER) 3.1 g/dL 3.5-5.0 L (test code = 1145) ALKALINE PHOSPHATASE 58 U/L 30-115 (BEAKER) (test code = 346) BILIRUBIN TOTAL 0.5 mg/dL 0.1-1.2 (BEAKER) (test code = 377) SODIUM (BEAKER) (test 146 meq/L 135-148 code = 381) POTASSIUM (BEAKER) 4.2 meq/L 3.6-5.5 (test code = 379) CHLORIDE (BEAKER) 101 meq/L 98-106 (test code = 382) CO2 (BEAKER) (test 39 meq/L 20-29 H code = 355) BLOOD UREA NITROGEN 42 mg/dL 10-26 H (BEAKER) (test code = 354) CREATININE (BEAKER) 1.27 mg/dL 0.50-1.20 H (test code = 358) GLUCOSE RANDOM 204 mg/dL 70-110 H (BEAKER) (test code = 652) CALCIUM (BEAKER) 9.0 mg/dL 8.5-10.5 (test code = 697) AST (SGOT) (BEAKER) 10 U/L 5-40 (test code = 353) ALT (SGPT) (BEAKER) 13 U/L 5-50 (test code = 347) EGFR (BEAKER) (test 40 mL/min/1.73 ESTIMA FAISAL GFR IS code = 1092) sq m NOT ACCURATE CREATININE CLEARANCE IN PREDICTING GLOMERULAR FILTRATION RATE . ESTIMATED GFR I S NOT APPLICABLE FOR DIALYSIS PATIEN TS. Hatch Supervisor ID - LITOOperator ID - LITOOperator ID - LITOOperator ID - LITOOperator ID - LITOOperator ID - LITOOperator ID - LITOOperator ID - LITOOperator ID - LITOOperator ID - LITOOperator ID - LITOOperator ID - LITOOperator ID - LITOOperator ID - LITOOperator ID - LITOOperator ID - [id number] 04:45:29 Test Item Value Reference Range Interpretation Comments MAGNESIUM (BEAKER) (test code = 2.2 mg/dL 1.5-3.0 627) Hatch Supervisor ID - LITOOperator ID - LITOOperator ID - LITOOperator ID - ERICKA [id number] 04:42:32 Test Item Value Reference Range Interpretation Comments PHOSPHORUS (BEAKER) (test code = 2.5 mg/dL 2.5-4.5 604) Hatch Supervisor ID - LITOCBC W/PLT COUNT & AUTO [id number] 04:20:55 Test Item Value Reference Range Interpretation Comments WHITE BLOOD CELL COUNT (BEAKER) 5.8 K/ L 4.0-10.0 (test code = 775) RED BLOOD CELL COUNT (BEAKER) 3.00 M/ L 4.00-5.00 L (test code = 761) HEMOGLOBIN (BEAKER) (test code = 10.7 GM/DL 12.0-15.5 L 410) HEMATOCRIT (BEAKER) (test code = 34.7 % 36.0-46.0 L 411) MEAN CORPUSCULAR VOLUME (BEAKER) 115.7 fL 82.0-99.0 H (test code = 753) MEAN CORPUSCULAR HEMOGLOBIN 35.7 pg 27.0-33.0 H (BEAKER) (test code = 751) MEAN CORPUSCULAR HEMOGLOBIN CONC 30.8 GM/DL 32.0-36.0 L (BEAKER) (test code = 752) RED CELL DISTRIBUTION WIDTH 20.3 % 12.0-15.0 H (BEAKER) (test code = 412) PLATELET COUNT (BEAKER) (test code 46 K/CU MM 150-430 L = 756) MEAN PLATELET VOLUME (BEAKER) 11.4 fL 6.0-11.5 (test code = 754) NUCLEATED RED BLOOD CELLS (BEAKER) 0 /100 WBC 0-0 (test code = 413) NEUTROPHILS RELATIVE PERCENT 91 % (BEAKER) (test code = 429) LYMPHOCYTES RELATIVE PERCENT 3 % (BEAKER) (test code = 430) MONOCYTES RELATIVE PERCENT 5 % (BEAKER) (test code = 431) EOSINOPHILS RELATIVE PERCENT 0 % (BEAKER) (test code = 432) BASOPHILS RELATIVE PERCENT 0 % (BEAKER) (test code = 437) NEUTROPHILS ABSOLUTE COUNT 5.24 K/ L 1.80-8.00 (BEAKER) (test code = 670) LYMPHOCYTES ABSOLUTE COUNT 0.18 K/ L 1.48-4.50 L (BEAKER) (test code = 414) MONOCYTES ABSOLUTE COUNT (BEAKER) 0.30 K/ L 0.00-1.30 (test code = 415) EOSINOPHILS ABSOLUTE COUNT 0.00 K/ L 0.00-0.50 (BEAKER) (test code = 416) BASOPHILS ABSOLUTE COUNT (BEAKER) 0.00 K/ L 0.00-0.20 (test code = 417) IMMATURE GRANULOCYTES-RELATIVE 1 % 0-0 H PERCENT (BEAKER) (test code = 2801) RAD, CHEST, 1 VIEW, NON [id number] 03:45:00Reason for exam:->[facility] 1940 Sex: FFINAL REPORT RAD, CHEST, 1 VIEW, NON DEPT INDICATION: chf-bipap COMPARISON: Prior day's exam FINDINGS: Portable frontal view of the chest. IMPRESSION: Support Lines: Nosignificant change. Lungs and pleura: Bilateral pulmonary opacities and right greater than left small pleural effusions are stable, allowing for low lung volumes. No pneumothorax.Heart and mediastinum: Stable contours. Additional findings: None. Signed: Lucio Rogers MDReport Verified Date/Time: 07/13/2021 03:45:56 [id number] 15:04:56 Test Item Value Reference Range Interpretation Comments FIBRINOGEN LEVEL 303 mg/dl 200-400 Final Infor mation (Its Time Compliance) (test code = (Auto Output) 658) PROTHROMBIN [id number] 15:04:56 Test Item Value Reference Range Interpretation Comments PROTIME (BEAKER) 11.4 seconds 9.3-12.0 Final Infor mation (test code = 759) (Auto Outp ut) INR (BEAKER) (test 1.04 See_Comment Final Inf ormation code = 370) (Auto Output) [Automated mess age] The system [employer] generated this result transmitted ref erence range: <=5.90. The reference range was not used to int erpret this result as normal/abnormal . RECOMMENDED COUMADIN/WARFARIN INR THERAPY RANGESSTANDARD DOSE: 2.0 - 3.0 Includes: PROPHYLAXIS forvenous thrombosis, systemic embolization; TREATMENT for venous thrombosis and/or pulmonary embolus.HIGH RISK: Target INR is 2.5-3.5 for patients with mechanical heart valves.CBC W/PLT COUNT & AUTO DIFFERENTIAL 2021-07-12 13:41:40 Test Item Value Reference Range Interpretation Comments WHITE BLOOD CELL COUNT (BEAKER) 7.8 K/ L 4.0-10.0 (test code = 775) RED BLOOD CELL COUNT (BEAKER) 3.20 M/ L 4.00-5.00 L (test code = 761) HEMOGLOBIN (BEAKER) (test code = 11.7 GM/DL 12.0-15.5 L 410) HEMATOCRIT (BEAKER) (test code = 36.4 % 36.0-46.0 411) MEAN CORPUSCULAR VOLUME (BEAKER) 113.8 fL 82.0-99.0 H (test code = 753) MEAN CORPUSCULAR HEMOGLOBIN 36.6 pg 27.0-33.0 H (BEAKER) (test code = 751) MEAN CORPUSCULAR HEMOGLOBIN CONC 32.1 GM/DL 32.0-36.0 (BEAKER) (test code = 752) RED CELL DISTRIBUTION WIDTH 20.4 % 12.0-15.0 H (BEAKER) (test code = 412) PLATELET COUNT (BEAKER) (test code 55 K/CU MM 150-430 L = 756) MEAN PLATELET VOLUME (BEAKER) 10.8 fL 6.0-11.5 (test code = 754) NUCLEATED RED BLOOD CELLS (BEAKER) 0 /100 WBC 0-0 (test code = 413) NEUTROPHILS RELATIVE PERCENT 91 % (BEAKER) (test code = 429) LYMPHOCYTES RELATIVE PERCENT 3 % (BEAKER) (test code = 430) MONOCYTES RELATIVE PERCENT 5 % (BEAKER) (test code = 431) EOSINOPHILS RELATIVE PERCENT 0 % (BEAKER) (test code = 432) BASOPHILS RELATIVE PERCENT 0 % (BEAKER) (test code = 437) NEUTROPHILS ABSOLUTE COUNT 7.08 K/ L 1.80-8.00 (BEAKER) (test code = 670) LYMPHOCYTES ABSOLUTE COUNT 0.26 K/ L 1.48-4.50 L (BEAKER) (test code = 414) MONOCYTES ABSOLUTE COUNT (BEAKER) 0.41 K/ L 0.00-1.30 (test code = 415) EOSINOPHILS ABSOLUTE COUNT 0.00 K/ L 0.00-0.50 (BEAKER) (test code = 416) BASOPHILS ABSOLUTE COUNT (BEAKER) 0.00 K/ L 0.00-0.20 (test code = 417) IMMATURE GRANULOCYTES-RELATIVE 0 % 0-0 PERCENT (BEAKER) (test code = 2801) RAD, CHEST, 1 VIEW, NON [id number] 07:35:00Reason for exam:->[id number]-bipap [facility] 1940 Sex: FFINAL REPORT Chest AP portable Comparison exam: 07/11/2021 History provided: Congestive failure, BiPAP Heart size magnified by projection and poor inspiration. Patchy airspace disease remains within the right lower lobe with small right pleural effusion. Left lung relatively clear. Normal vascularity. Signed: Yaron Powell MDReport Verified Date/Time: 07/12/2021 07:35:40 Reading Location: [facility] Radiology Reading Room COMPREHENSIVE METABOLIC [id number] 04:37:52 Test Item Value Reference Range Interpretation Comments TOTAL PROTEIN 5.8 gm/dL 6.0-8.5 L (BEAKER) (test code = 770) ALBUMIN (BEAKER) 3.1 g/dL 3.5-5.0 L (test code = 1145) ALKALINE PHOSPHATASE 58 U/L 30-115 (BEAKER) (test code = 346) BILIRUBIN TOTAL 0.7 mg/dL 0.1-1.2 (BEAKER) (test code = 377) SODIUM (BEAKER) (test 143 meq/L 135-148 code = 381) POTASSIUM (BEAKER) 3.8 meq/L 3.6-5.5 (test code = 379) CHLORIDE (BEAKER) 97 meq/L 98-106 L (test code = 382) CO2 (BEAKER) (test 35 meq/L 20-29 H code = 355) BLOOD UREA NITROGEN 40 mg/dL 10-26 H (BEAKER) (test code = 354) CREATININE (BEAKER) 1.53 mg/dL 0.50-1.20 H (test code = 358) GLUCOSE RANDOM 241 mg/dL 70-110 H (BEAKER) (test code = 652) CALCIUM (BEAKER) 9.4 mg/dL 8.5-10.5 (test code = 697) AST (SGOT) (BEAKER) 13 U/L 5-40 (test code = 353) ALT (SGPT) (BEAKER) 15 U/L 5-50 (test code = 347) EGFR (BEAKER) (test 32 mL/min/1.73 ESTIMA FAISAL GFR IS code = 1092) sq m NOT ACCURATE CREATININE CLEARANCE IN PREDICTING GLOMERULAR FILTRATION RATE . ESTIMATED GFR I S NOT APPLICABLE FOR DIALYSIS PATIEN TS. Hatch Supervisor ID - [id number] ID - [id number] ID - [id number] ID - [id number] ID - [id number] ID - [id number] ID - [id number] ID - IUYF22Gbizyucz ID - [id number] ID - [id number] ID - [id number] ID - [id number] ID - [id number] ID - [id number] ID - [id number] ID - [id number] 04:37:28 Test Item Value Reference Range Interpretation Comments MAGNESIUM (BEAKER) (test code = 2.2 mg/dL 1.5-3.0 627) Hatch Supervisor ID - [id number] ID - [id number] ID - [id number] ID - [id number] 04:34:27 Test Item Value Reference Range Interpretation Comments PHOSPHORUS (BEAKER) (test code = 1.9 mg/dL 2.5-4.5 L 604) Hatch Supervisor ID - [id number] W/PLT COUNT & AUTO [id number] 04:30:06 Test Item Value Reference Range Interpretation Comments WHITE BLOOD CELL COUNT (BEAKER) 5.8 K/ L 4.0-10.0 (test code = 775) RED BLOOD CELL COUNT (BEAKER) 2.93 M/ L 4.00-5.00 L (test code = 761) HEMOGLOBIN (BEAKER) (test code = 10.5 GM/DL 12.0-15.5 L 410) HEMATOCRIT (BEAKER) (test code = 33.4 % 36.0-46.0 L 411) MEAN CORPUSCULAR VOLUME (BEAKER) 114.0 fL 82.0-99.0 H (test code = 753) MEAN CORPUSCULAR HEMOGLOBIN 35.8 pg 27.0-33.0 H (BEAKER) (test code = 751) MEAN CORPUSCULAR HEMOGLOBIN CONC 31.4 GM/DL 32.0-36.0 L (BEAKER) (test code = 752) RED CELL DISTRIBUTION WIDTH 20.1 % 12.0-15.0 H (BEAKER) (test code = 412) PLATELET COUNT (BEAKER) (test code 54 K/CU MM 150-430 L = 756) MEAN PLATELET VOLUME (BEAKER) 11.2 fL 6.0-11.5 (test code = 754) NUCLEATED RED BLOOD CELLS (BEAKER) 0 /100 WBC 0-0 (test code = 413) NEUTROPHILS RELATIVE PERCENT 86 % (BEAKER) (test code = 429) LYMPHOCYTES RELATIVE PERCENT 8 % (BEAKER) (test code = 430) MONOCYTES RELATIVE PERCENT 6 % (BEAKER) (test code = 431) EOSINOPHILS RELATIVE PERCENT 0 % (BEAKER) (test code = 432) BASOPHILS RELATIVE PERCENT 0 % (BEAKER) (test code = 437) NEUTROPHILS ABSOLUTE COUNT 4.96 K/ L 1.80-8.00 (BEAKER) (test code = 670) LYMPHOCYTES ABSOLUTE COUNT 0.46 K/ L 1.48-4.50 L (BEAKER) (test code = 414) MONOCYTES ABSOLUTE COUNT (BEAKER) 0.33 K/ L 0.00-1.30 (test code = 415) EOSINOPHILS ABSOLUTE COUNT 0.00 K/ L 0.00-0.50 (BEAKER) (test code = 416) BASOPHILS ABSOLUTE COUNT (BEAKER) 0.00 K/ L 0.00-0.20 (test code = 417) IMMATURE GRANULOCYTES-RELATIVE 1 % 0-0 H PERCENT (BEAKER) (test code = 2801) POCT-GLUCOSE [id number] 23:58:21 Test Item Value Reference Range Interpretation Comments POC-GLUCOSE METER 114 mg/dL 70-110 H : TESTED A T [facility] [address] (BEAKER) (test code [address], = 1538) [facility] [place] [address]: Hatch Supervisor/Techni сергей ID = [id number] for Jair Pitts PUL PERF IMAGING, [id number] 16:39:00Unlisted Reason for Exam - Click Yes and Enter Reason Below->No [facility] 1940 Sex: FFINAL REPORT PROCEDURE: LUNG SCAN - perfusion only CPT CODE: 08961 INDICATION: PE suspected, positive D-Dimer PROTOCOL: 6.4 mCi of Tc-99m MAA was injected intravenously, and static perfusion images were obtained in multiple projections. Ventilation imaging was not performed due to COVID precautions. FINDINGS: Tracer distribution is nonsegmentally, irregularly decreased in the lower lung mcguire. Enlarged cardiomediastinal silhouette. Decreased perfusion volume of the right lung. IMPRESSION: 1. Bilateral parenchymal abnormality and/or pleural abnormality.2. Decreased right lung volume.3. Enlarged cardiomediastinal silhouette. Signed: Briana Oropeza MDReport Verified Date/Time: 07/11/2021 16:39:09 Reading Location: [address] Reading Room RAD, CHEST, PA OR AP, 1 [id number] 16:12:00 VAT/Infusion Therapy Nurse to Call Radiology Department when patient is readyReason for exam:->s/p picc line [facility] : 1940 Sex: FFINAL REPORT Chest, 1 view, 07/11/2021 4:10 PM. History: PICC placement. Comparison: X-ray from earlier today. Discussion: A new right upper extremity PICC is present terminating in the cavoatrial junction. The cardiac silhouette and bilateral pulmonary opacities are unchanged. The soft tissues and osseous structures are intact. IMPRESSION: PICC line in adequate position. Signed: Patrice Mckeon Verified Date/Time: 07/11/2021 16:12:11 Reading Location: [facility] Radiology Reading Room POCT-GLUCOSE [id number] 16:04:33 Test Item Value Reference Range Interpretation Comments POC-GLUCOSE METER 122 mg/dL 70-110 H : TESTED A T [address] ([employer]) (test code [address], = 1538) [place] [id number]: Hatch Supervisor/Techni сергей ID = [id number] for Aissatou Holloway POCT-GLUCOSE [id number] 11:55:17 Test Item Value Reference Range Interpretation Comments POC-GLUCOSE METER 117 mg/dL 70-110 H : TESTED A T [address] (BEAKER) (test code [address], = 1538) [place] [id number]: Hatch Supervisor/Techni сергей ID = [id number] for Aissatou Holloway BASIC METABOLIC [id number] 11:36:10 Test Item Value Reference Range Interpretation Comments SODIUM (BEAKER) 140 meq/L 135-148 (test code = 381) POTASSIUM (BEAKER) 5.3 meq/L 3.6-5.5 Specimen moderately (test code = 379) hemolyzed CHLORIDE (BEAKER) 95 meq/L 98-106 L (test code = 382) CO2 (BEAKER) (test 31 meq/L 20-29 H code = 355) BLOOD UREA NITROGEN 33 mg/dL 10-26 H (BEAKER) (test code = 354) CREATININE (BEAKER) 1.60 mg/dL 0.50-1.20 H Specimen moderately (test code = 358) hemolyzed GLUCOSE RANDOM 325 mg/dL 70-110 H (BEAKER) (test code = 652) CALCIUM (BEAKER) 9.2 mg/dL 8.5-10.5 (test code = 697) EGFR (BEAKER) (test 31 mL/min/1.73 ESTIMA FAISAL GFR IS code = 1092) sq m NOT ACCURATE CREATININE CLEARANCE IN PREDICTING GLOMERULAR FILTRATION RATE . ESTIMATED GFR I S NOT APPLICABLE FOR DIALYSIS PATIEN TS. Hatch Supervisor ID - [id number] ID - [id number] ID - [id number] ID - [id number] ID - [id number] ID - [id number] ID - [id number] ID - [id number] ID - [id number] ID - [id number] ID - [id number] ID - [id number] 10:32:08 Test Item Value Reference Range Interpretation Comments TROPONIN I (BEAKER) (test code = 0.04 ng/mL 0.00-0.15 397) Troponin I (TnI) levels must be interpreted in the context of the presenting symptoms and the clinical findings. Elevated TnI levels indicate myocardial damage, but are not specific for ischemic heart disease. Elevated TnI levels are seen in patients with other cardiac conditions (including myocarditis and congestive heart failure), and slight TnI elevations occur in patients with other conditions, including sepsis, renal failure, acidosis, acute neurological disease, and persistent tachyarrhythmia.Hatch Supervisor ID - [id number] DOPPLER LEGS, [id number] 08:27:00Reason for exam:->EVAL FOR DVT [facility] : 1940 Sex: FFINAL REPORT Lower extremity venous Doppler - bilateral. History: Lower extremity edema. Discussion: Grayscale, color Doppler, and spectral wave form analysis was performed of the bilateral lower extremity deep venous systems from the common femoral through popliteal veins. Evaluation of the greater saphenous, posterior tibial, and peroneal veins were also performed.There is normal spontaneous phasic flow with normal response to compression and augmentation maneuvers bilaterally. IMPRESSION: Normal bilateral lower extremity venous Doppler examination. No evidence of DVT. Signed: Patrice Mckeon Verified Date/Time: 07/11/2021 08:27:58 Reading Location: [facility] Radiology Reading Room RAD, CHEST, 1 VIEW, NON [id number] 08:26:00Reason for exam:->PULM EDEMAShould this be performed at the bedside?->Yes [facility] : 1940 Sex: FFINAL REPORT Chest, 1 view, 07/11/2021 7:47 AM. History: Pulmonary edema. Comparison: None available. Discussion: The cardiomediastinal silhouette and pulmonary vasculature are prominent with hazy bilateral perihilar and bibasilar opacities and blunting of the costophrenic sulci. The soft tissues and osseous structures are intact. IMPRESSION: Findings consistent with CHF with bibasilar atelectasis and effusions, although pneumonia cannot be excluded. Signed: Patrice Mckeon Verified Date/Time: 07/11/2021 08:26:50 Reading Location: [facility] Radiology Reading Room BLOOD GAS, [id number] 08:09:50 Test Item Value Reference Range Interpretation Comments PH ARTERIAL (BEAKER) (test code = 7.27 7.35-7.45 L 383) PCO2 ARTERIAL (BEAKER) (test code 79 mm Hg 35-45 HH = 384) PO2 ARTERIAL (BEAKER) (test code = 171 mm Hg 80-90 H 385) O2 SATURATION ARTERIAL (BEAKER) 98.9 % 96.0-97.0 H (test code = 386) HCO3 ARTERIAL (BEAKER) (test code 36 mmol/L 21-29 H = 388) BASE EXCESS ARTERIAL (BEAKER) 5.7 mmol/L -2.0-3.0 H (test code = 387) PATIENT TEMPERATURE (BEAKER) (test 36.0 code = 1818) FIO2 (BEAKER) (test code = 1819) 50.0 SARS-COV2/INFLUENZA/RSV [id number] 07:00:01 Test Item Value Reference Range Interpretation Comments SARS-COV2/RT-PCR Negative Negative The SARS-Co V-2 target (test code = nucleic acids a re not [id number]) detected in thi s specimen. Nega tive results do not preclude SARS-CoV-2 infe ction and should not be u sed as the sole basis for patient management deci sions. Negative result s must be combined with c linical observations, p atient history, and epidemiological information. A false negative result may occur if a specimen i s improperly dorothy ected, transported or handled. This SARS CoV-2 test is a rapid, real-linda e RT-PCR test intended f or the qualitative det ection of nucleic acid fr om SARS-CoV-2 in a nasopharyngeal swab specimen collec faisal from individuals yousif pected of COVID-19 by the [facility]. INFLUENZA A RT-PCR Negative Negative The Flu A target nucleic (test code = acids are not d etected in 19100524) this specimen. INFLUENZA B RT-PCR Negative Negative The Flu B target nucleic (test code = acids are not d etected in 19100525) this specimen. RSV RT-PCR (test Negative Negative The RSV ta rget nucleic code = 9499898) acids are no t detected in this specimen. The presence of SARS-CoV-2/FLU/RSV viral nucleic acids cannot rule out co- infections or disease caused by other viral or bacterial pathogens. As with any molecular test, mutations within the target regions of the Xpert Xpress SARS-CoV-2/Flu/RSV test could affect primer and/or probe binding resulting in failure to detect the presence of virus or the virus being detected less predictably. False negative results may occur if the virus is present at levels below the analytical limit of detection in this specimen.This Xpert Xpress SARS-CoV-2/Flu/RSV test is a rapid, real-time RT-PCR test intended for the qualitative detection of nucleic acid from Xpert Xpress SARS-CoV-2/Flu/RSV in a nasopharyngeal swab specimen collected from individuals suspected of Xpert Xpress SARS-CoV-2/Flu/RSV by their healthcare provider. Results from nata Xpert Xpress SARS-CoV-2/Flu/RSV test should be correlated with the clinical history, epidemiological data, and other data available to the clinician evaluating the patient. Viral nucleic acid may persist in vivo, independent of virus viability. Detection of analyte target(s) does not imply that the corresponding virus(es) are infectious or are the causative agents for clinical symptoms.This test has not been Food and Drug Administration (FDA) cleared or approved and has been authorized by FDA under an Emergency Use Authorization (EUA). This EUA will be effective until the declaration that circumstances exist justifying the authorization of the emergency use of in vitro diagnostic tests for detection and/or diagnosis of COVID-19 is terminated under Section 564(b)(2) of the Act or the EUA is revoked under Section 564(g) of the Act.Fact Sheet for Healthcare Providers :https://www.[employer]/Documents/Xpert%20Xpress%20SARS%20CoV-2/Fact%20Sheets/3 02-3902%72FZHF-UOY-7%20HEALTHCARE%20PROVIDERS%20FACT%20SHEET.pdfFact Sheet for Healthcare Patients:https://www.[employer] /Documents/Xpert%20Xpress%20SARS%20Cov-2/Fact%20Sheets/302-3801%99QCUJ-ICF-0%20P ATIENT%20FACT%20SHEET.pdfURINALYSIS [id number] 05:10:26 Test Item Value Reference Range Interpretation Comments RBC UA-MANUAL (BEAKER) (test code = 5-10 /HPF 1659) WBC UA-MANUAL (BEAKER) (test code = <5 /HPF 1661) BACTERIA (BEAKER) (test code = 517) Many SQUAMOUS EPITHELIAL MANUAL (BEAKER) 5-10 /HPF (test code = 1663) URINALYSIS WITH MICROSCOPIC IF [id number] 05:03:13 Test Item Value Reference Range Interpretation Comments COLOR (BEAKER) (test code = 470) Yellow CLARITY (BEAKER) (test code = 469) Clear SPECIFIC GRAVITY UA (BEAKER) (test >= 1.001-1.035 code = 468) PH UA (BEAKER) (test code = 467) 5.5 5.0-8.0 PROTEIN UA (BEAKER) (test code = Trace Negative A 464) GLUCOSE UA (BEAKER) (test code = Negative Negative 365) KETONES UA (BEAKER) (test code = Negative Negative 371) BILIRUBIN UA (BEAKER) (test code = Negative Negative 462) BLOOD UA (BEAKER) (test code = 461) Negative Negative NITRITE UA (BEAKER) (test code = Negative Negative 465) LEUKOCYTE ESTERASE UA (BEAKER) Negative Negative (test code = 466) UROBILINOGEN UA (JANNETH) (test code 0.2 mg/dL 0.2-1.0 = 463) SOURCE(JANNETH) (test code = 2795) TSH/FREE T4 IF [id number] 03:59:00 Test Item Value Reference Range Interpretation Comments THYROID STIMULATING HORMONE 3.340 uIU/mL 0.350-5.500 (JANNETH) (test code = 772) Hatch Supervisor ID - ERICATROPONIN [id number] 02:54:04 Test Item Value Reference Range Interpretation Comments TROPONIN I (JANNETH) (test code = 0.03 ng/mL 0.00-0.15 397) Troponin I (TnI) levels must be interpreted in the context of the presenting symptoms and the clinical findings. Elevated TnI levels indicate myocardial damage, but are not specific for ischemic heart disease. Elevated TnI levels are seen in patients with other cardiac conditions (including myocarditis and congestive heart failure), and slight TnI elevations occur in patients with other conditions, including sepsis, renal failure, acidosis, acute neurological disease, and persistent tachyarrhythmia.Hatch Supervisor ID - [id number] [id number] 02:39:18 Test Item Value Reference Range Interpretation Comments PROTIME (JANNETH) 15.9 seconds 9.3-12.0 H (test code = 759) INR (JANNETH) (test 1.49 See_Comment [Automat ed message] code = 370) The system [employer] generated this result transmitted ref erence range: <=5.90. The reference range was not used to int erpret this result as normal/abnormal . RECOMMENDED COUMADIN/WARFARIN INR THERAPY RANGESSTANDARD DOSE: 2.0 - 3.0 Includes: PROPHYLAXIS forvenous thrombosis, systemic embolization; TREATMENT for venous thrombosis and/or pulmonary embolus.HIGH RISK: Target INR is 2.5-3.5 for patients with mechanical heart valves.HEMOGLOBIN [id number] 02:25:17 Test Item Value Reference Range Interpretation Comments HEMOGLOBIN A1C (JANNETH) (test code = 5.6 % 4.3-6.1 368) Hatch Supervisor ID - NSROSACOMPREHENSIVE METABOLIC [id number] 02:23:57 Test Item Value Reference Range Interpretation Comments TOTAL PROTEIN 7.5 gm/dL 6.0-8.5 Specimen marke dly (BEAKER) (test code = hemoly zed 770) ALBUMIN (BEAKER) 3.7 g/dL 3.5-5.0 Specimen ma rkedly (test code = 1145) hemolyzed ALKALINE PHOSPHATASE 70 U/L 30-115 (BEAKER) (test code = 346) BILIRUBIN TOTAL 0.7 mg/dL 0.1-1.2 Specimen mar kedly (BEAKER) (test code = hemoly zed 377) SODIUM (BEAKER) (test 146 meq/L 135-148 code = 381) POTASSIUM (BEAKER) 5.5 meq/L 3.6-5.5 Specimen markedly (test code = 379) hemolyzed CHLORIDE (BEAKER) 98 meq/L 98-106 (test code = 382) CO2 (BEAKER) (test 35 meq/L 20-29 H code = 355) BLOOD UREA NITROGEN 33 mg/dL 10-26 H (BEAKER) (test code = 354) CREATININE (BEAKER) 1.54 mg/dL 0.50-1.20 H Specimen markedly (test code = 358) hemolyzed GLUCOSE RANDOM 101 mg/dL 70-110 (BEAKER) (test code = 652) CALCIUM (BEAKER) 9.8 mg/dL 8.5-10.5 (test code = 697) AST (SGOT) (BEAKER) 42 U/L 5-40 H Specimen markedly (test code = 353) hemolyzed ALT (SGPT) (BEAKER) 23 U/L 5-50 Specimen markedly (test code = 347) hemolyzed EGFR (BEAKER) (test 32 mL/min/1.73 ESTIMA FAISAL GFR IS code = 1092) sq m NOT ACCURATE CREATININE CLEARANCE IN PREDICTING GLOMERULAR FILTRATION RATE . ESTIMATED GFR I S NOT APPLICABLE FOR DIALYSIS PATIEN TS. Hatch Supervisor ID - NSUVAGIYAOperator ID - NSUVAGIYAOperator ID - NSUVAGIYAOperator ID - NSUVAGIYAOperatorID - NSUVAGIYAOperator ID - NSUVAGIYAOperator ID - NSUVAGIYAOperator ID - NSUVAGIYAOperator ID - NSUVAGIYAOperator ID - NSUVAGIYAOperator ID - NSUVAGIYAOperator ID - NSUVAGIYAOperator ID - NSUVAGIYAOperator ID - NSUVAGIYAOperator ID - NSUVAGIYAOperator ID - NSUVAGIYA [id number] 02:23:41 Test Item Value Reference Range Interpretation Comments MAGNESIUM (BEAKER) 2.5 mg/dL 1.5-3.0 Specimen markedly (test code = 627) hemolyzed Hatch Supervisor ID - NSUVAGIYAOperator ID - NSUVAGIYAOperator ID - NSUVAGIYAOperator ID - NSUVAGIYALACTIC ACID, [id number] 02:23:35 Test Item Value Reference Range Interpretation Comments LACTATE BLOOD 2.33 mmol/L See_Comment HH Specimen moder ately VENOUS (2) (BEAKER) hemolyze d [Automated (test code = 2872) message] The system which generated this result transmit faisal reference range : 0.50-<2.00. The reference range was not used to interpr et this result as normal/abnormal . Hatch Supervisor ID - NSUVAGIYAOperator ID - NSUVAGIYAOperator ID - NSUVAGIYAOperator ID - NSUVAGIYALIPID [id number] 02:23:16 Test Item Value Reference Range Interpretation Comments TRIGLYCERIDES (BEAKER) 102 mg/dL Speci men markedly (test code = 540) hemolyzed CHOLESTEROL (BEAKER) 156 mg/dL Specime n markedly (test code = 631) hemolyzed HDL CHOLESTEROL (BEAKER) 53 mg/dL (test code = 976) LDL CHOLESTEROL 83 mg/dL CALCULATED (BEAKER) (test code = 633) Triglyceride Reference Range: Low Risk <150 Borderline 150-199 High Risk 200-499 Very High Risk >=500Cholesterol Reference Range: Low Risk <200 Borderline 200-239 High Risk >240HDL Cholesterol Reference Range: Low Risk >=60 High Risk <40LDL Cholesterol Reference Range: Optimal <100 Near Optimal 100-129 Borderline 130-159 High 160-189 Very High >=190 Hatch Supervisor ID - NSUVAGIYAOperator ID - NSUVAGIYAOperator ID - NSUVAGIYA CBC W/PLT COUNT & AUTO [id number] 02:20:12 Test Item Value Reference Range Interpretation Comments WHITE BLOOD CELL COUNT (BEAKER) 6.4 K/ L 4.0-10.0 (test code = 775) RED BLOOD CELL COUNT (BEAKER) 3.65 M/ L 4.00-5.00 L (test code = 761) HEMOGLOBIN (BEAKER) (test code = 13.4 GM/DL 12.0-15.5 410) HEMATOCRIT (BEAKER) (test code = 43.8 % 36.0-46.0 411) MEAN CORPUSCULAR VOLUME (BEAKER) 120.0 fL 82.0-99.0 H (test code = 753) MEAN CORPUSCULAR HEMOGLOBIN 36.7 pg 27.0-33.0 H (BEAKER) (test code = 751) MEAN CORPUSCULAR HEMOGLOBIN CONC 30.6 GM/DL 32.0-36.0 L (BEAKER) (test code = 752) RED CELL DISTRIBUTION WIDTH 20.2 % 12.0-15.0 H (BEAKER) (test code = 412) PLATELET COUNT (BEAKER) (test code 64 K/CU MM 150-430 L = 756) MEAN PLATELET VOLUME (BEAKER) 11.3 fL 6.0-11.5 (test code = 754) NUCLEATED RED BLOOD CELLS (BEAKER) 0 /100 WBC 0-0 (test code = 413) NEUTROPHILS RELATIVE PERCENT 82 % (BEAKER) (test code = 429) LYMPHOCYTES RELATIVE PERCENT 8 % (BEAKER) (test code = 430) MONOCYTES RELATIVE PERCENT 9 % (BEAKER) (test code = 431) EOSINOPHILS RELATIVE PERCENT 0 % (BEAKER) (test code = 432) BASOPHILS RELATIVE PERCENT 0 % (BEAKER) (test code = 437) NEUTROPHILS ABSOLUTE COUNT 5.28 K/ L 1.80-8.00 (BEAKER) (test code = 670) LYMPHOCYTES ABSOLUTE COUNT 0.54 K/ L 1.48-4.50 L (BEAKER) (test code = 414) MONOCYTES ABSOLUTE COUNT (BEAKER) 0.59 K/ L 0.00-1.30 (test code = 415) EOSINOPHILS ABSOLUTE COUNT 0.00 K/ L 0.00-0.50 (BEAKER) (test code = 416) BASOPHILS ABSOLUTE COUNT (BEAKER) 0.00 K/ L 0.00-0.20 (test code = 417) IMMATURE GRANULOCYTES-RELATIVE 1 % 0-0 H PERCENT (BEAKER) (test code = 2801) BLOOD GAS, [id number] 02:15:23 Test Item Value Reference Range Interpretation Comments PH ARTERIAL (BEAKER) (test code = 7.06 7.35-7.45 LL 383) PCO2 ARTERIAL (BEAKER) (test code 159 mm Hg 35-45 HH = 384) PO2 ARTERIAL (BEAKER) (test code = 195 mm Hg 80-90 H 385) O2 SATURATION ARTERIAL (BEAKER) 98.6 % 96.0-97.0 H (test code = 386) HCO3 ARTERIAL (BEAKER) (test code 44 mmol/L 21-29 HH = 388) BASE EXCESS ARTERIAL (BEAKER) 7.6 mmol/L -2.0-3.0 H (test code = 387) PATIENT TEMPERATURE (BEAKER) (test 37.0 code = 1818) FIO2 (BEAKER) (test code = 1819) 80.0
[2021-09-06 21:15] LABS: Absolute Lymphocytes (CBC) 0.3 K/uL (0.7-4.9); Hematocrit 33.1 % (36.0-45.0); Lymphocytes % 9.3 % (15.3-44.8); RBC Red Blood Cell Count 2.74 M/uL (3.86-4.86)
[2021-09-06 21:18] LABS: Protime INR 0.99
[2021-09-06 21:26] LABS: Magnesium 2.6 mg/dL (1.8-2.4); Potassium 3.5 mmol/L (3.5-5.1)
--- NOTE | 2021-09-06 21:27 | ER ---
Nurse's Notes [facility] Name: Rani Gonzáles Age: 81 yrs Sex: Female : 1940 Arrival Date: 09/06/2021 Time: 20:04 Bed 15 Private MD: Diagnosis: Dyspnea;Combined systolic (congestive) and diastolic (congestive) heart failure;Hypoxemia;Pleural effusion, not elsewhere classified;Venous insufficiency (chronic) (peripheral);Chronic atrial fibrillation Presentation: 09/06 20:40 Chief complaint: EMS states: Lethargy. Coronavirus screen: Vaccine status: Patient adriel reports receiving the 2nd dose of the covid vaccine. Ebola Screen: Patient negative for fever greater than or equal to 101.5 degrees Fahrenheit, and additional compatible Ebola Virus Disease symptoms Patient denies exposure to infectious person. Patient denies travel to an Ebola-affected area in the 21 days before illness onset. Initial Sepsis Screen: Does the patient meet any 2 criteria? No. Patient's initial sepsis screen is negative. Does the patient have a suspected source of infection? No. Patient's initial sepsis screen is negative. Risk Assessment: Do you want to hurt yourself or someone else? Patient reports no desire to harm self or others. Onset of symptoms was September 06, 2021. 20:40 Method Of Arrival: EMS adriel 20:40 Acuity: RIKKI 3 adriel - Family history:: not pertinent. Screenin:50 Abuse screen: Denies threats or abuse. Denies injuries from another. Nutritional adriel screening: No deficits noted. Tuberculosis screening: No symptoms or risk factors identified. Fall Risk None identified. Assessment: 20:18 General: Pt placed in room #15 \\T\\ [id number]. . adriel 22:08 General: The nursing asst helped place the F/C, after sending the labs. . adriel 22:53 General: The son's name and number are, Saurabh [phone] or [phone]. adriel 09/07 00:01 General: The pt is to be admitted and report will be given to the "ER Hold" nurse, that adriel is working alongside me. . Vital Signs: 09/06 20:40 BP 115 / 62; Pulse 82; Resp 16; Temp 97.5; Pulse Ox 97% on 2 lpm NC; Pain 0/10; adriel 22:49 BP 104 / 62; Pulse 82; Resp 22; Temp 97.5; Pulse Ox 100% on Nebulizer Mask; Pain 0/10; adriel 23:56 BP 110 / 57; Pulse 98; Resp 22; Pulse Ox 100% on 2 lpm NC; Pain 0/10; adriel ED Course: 20:04 Patient arrived in ED. kz 20:15 Anderson Batista MD is Attending Physician. laurel 20:17 Annia Torrez, RN is Primary Nurse. adriel 20:49 Triage completed. adriel 20:50 Bed in low position. Call light in reach. Side rails up X2. Adult w/ patient. Pulse ox adriel on. NIBP on. 21:09 Lactate Sent. mb7 21:09 Blood Culture Adult (2) Sent. mb7 21:10 Procalcitonin Sent. mb7 21:10 Basic Metabolic Panel Sent. mb7 21:10 CBC with Diff Sent. mb7 21:10 LFT's Sent. mb7 21:10 Troponin HS Sent. mb7 21:10 PT-INR Sent. mb7 21:10 NT PRO-BNP Sent. mb7 21:10 Magnesium Sent. mb7 21:12 XRAY Chest (1 view) In Process Unspecified. EDMS 21:21 Daryl Griffin MD is Hospitalizing Provider. laurel 21:47 EKG done, by ED staff, reviewed by Anderson Batista MD. mb7 21:48 SARS-COV-2 RT PCR (Document "Date of Onset" if Symptomatic) Sent. mb7 21:48 Blood Culture Adult (2) Sent. mb7 22:14 Saldana cath inserted, using sterile technique, 18 Fr., by ms, balloon inflated, to mb7 gravity drainage, clamped. urine specimen collected. returned clear yellow urine. Patient tolerated well. 22:14 Urine Culture Sent. mb7 Administered Medications: 21:46 Not Given (Duplicate Order): NS 0.9% 1000 ml IV at 75 ml/hr continuous laurel 22:48 Drug: Albuterol - atroVENT (ipratropium) (3:1) (2.5 mg - 0.5 mg) 3 ml Route: Nebulizer; adriel 22:49 Drug: Lasix (furosemide) 20 mg Route: IVP; Site: left antecubital; adriel 22:49 Drug: SOLU-Medrol (methylPrednisoLONE) 125 mg Route: IVP; Site: left antecubital; adriel 22:49 Drug: Zosyn (piperacillin-tazobactam) 3.375 grams Route: IVPB; Infused Over: 60 mins; adriel Site: left antecubital; 09/07 00:05 Not Given (Duplicate Order): Lasix (furosemide) 40 mg IVP once; give over 2 minutes adriel Outcome: 09/06 21:26 Decision to Hospitalize by Provider. laurel 09/07 15:40 Patient left the ED. ph Signatures: Dispatcher [employer] EDAnderson Kim MD MD cha Hall, Patricia, RN RN Gissell Mcleod Brenda, RN RN Kenna Trujillo Corrections: (The following items were deleted from the chart) 09/06 20:19 20:17 General: Pt placed in room #15, by EMS, with the report that she is lethargic. Pt adriel is AAOx4. Swelling noted to BLE. She appears in NAD. They did not place her on the monitor. . adriel
--- NOTE | 2021-09-06 21:27 | EDPHYS ---
Physician Documentation [facility] Name: Rani Gonzáles Age: 81 yrs Sex: Female : 1940 Arrival Date: 09/06/2021 Time: 20:04 Bed 15 Private MD: ED Physician Anderson Batista HPI: 09/06 20:47 This 81 yrs old Unknown Female presents to ER via Unassigned with complaints of General laruel Weakness. 20:47 The patient has shortness of breath at rest, with light activity. Onset: The laurel symptoms/episode began/occurred 3 day(s) ago. Duration: The symptoms are continuous, and are steadily getting worse. The patient's shortness of breath has no apparent modifying factors. weakness, sob, body swelling. Associated signs and symptoms: Pertinent positives: non-productive cough. Severity of symptoms: At their worst the symptoms were moderate in the emergency department the symptoms are unchanged. The patient has experienced similar episodes in the past, multiple times. - Family history:: not pertinent. ROS: 20:47 Constitutional: Negative for fever, chills, and weight loss, Eyes: Negative for injury, laurel pain, redness, and discharge, ENT: Negative for injury, pain, and discharge, Neck: Negative for injury, pain, and swelling, Cardiovascular: Negative for chest pain, palpitations, and edema, Abdomen/GI: Negative for abdominal pain, nausea, vomiting, diarrhea, and constipation, Back: Negative for injury and pain, : Negative for injury, bleeding, discharge, and swelling, Skin: Negative for injury, rash, and discoloration, Neuro: Negative for headache, weakness, numbness, tingling, and seizure, Psych: Negative for depression, anxiety, suicide ideation, homicidal ideation, and hallucinations, Allergy/Immunology: Negative for hives, rash, and allergies, Endocrine: Negative for neck swelling, polydipsia, polyuria, polyphagia, and marked weight changes, Hematologic/Lymphatic: Negative for swollen nodes, abnormal bleeding, and unusual bruising. 20:47 Respiratory: Positive for cough, shortness of breath, at rest. 20:47 MS/extremity: Positive for erythema, swelling, tenderness, of the right leg and left leg. Exam: 20:47 Constitutional: This is a well developed, well nourished patient who is awake, alert, laurel and in no acute distress. Head/Face: Normocephalic, atraumatic. Eyes: Pupils equal round and reactive to light, extra-ocular motions intact. Lids and lashes normal. Conjunctiva and sclera are non-icteric and not injected. Cornea within normal limits. Periorbital areas with no swelling, redness, or edema. ENT: Nares patent. No nasal discharge, no septal abnormalities noted. Tympanic membranes are normal and external auditory canals are clear. Oropharynx with no redness, swelling, or masses, exudates, or evidence of obstruction, uvula midline. Mucous membranes moist. Neck: Trachea midline, no thyromegaly or masses palpated, and no cervical lymphadenopathy. Supple, full range of motion without nuchal rigidity, or vertebral point tenderness. No Meningismus. Chest/axilla: Normal chest wall appearance and motion. Nontender with no deformity. No lesions are appreciated. Cardiovascular: Regular rate and rhythm with a normal S1 and S2. No gallops, murmurs, or rubs. Normal PMI, no JVD. No pulse deficits. Abdomen/GI: Soft, non-tender, with normal bowel sounds. No distension or tympany. No guarding or rebound. No evidence of tenderness throughout. Back: No spinal tenderness. No costovertebral tenderness. Full range of motion. Female : Normal external genitalia. Skin: Warm, dry with normal turgor. Normal color with no rashes, no lesions, and no evidence of cellulitis. Neuro: Awake and alert, GCS 15, oriented to person, place, time, and situation. Cranial nerves II-XII grossly intact. Motor strength 5/5 in all extremities. Sensory grossly intact. Cerebellar exam normal. Normal gait. Psych: Awake, alert, with orientation to person, place and time. Behavior, mood, and affect are within normal limits. 20:47 Respiratory: the patient does not display signs of respiratory distress, Respirations: labored breathing, that is mild, Breath sounds: decreased breath sounds, that are mild, are scattered, rhonchi, that are mild, are scattered, stridor, is not appreciated, + upper airway congestion. Respiratory rate: 22 21:48 ECG was reviewed by the Attending Physician. [facility] Vital Signs: 20:40 BP 115 / 62; Pulse 82; Resp 16; Temp 97.5; Pulse Ox 97% on 2 lpm NC; Pain 0/10; adriel 22:49 BP 104 / 62; Pulse 82; Resp 22; Temp 97.5; Pulse Ox 100% on Nebulizer Mask; Pain 0/10; adriel 23:56 BP 110 / 57; Pulse 98; Resp 22; Pulse Ox 100% on 2 lpm NC; Pain 0/10; adriel MDM: 20:15 Patient medically screened. laurel 20:49 Differential diagnosis: Anemia asthma, Bronchitis CHF exacerbation, Chronic Obstructive laurel Pulmonary Disease pneumonia, pulmonary edema, Pulmonary Embolism reactive airway disease, Sepsis Unstable Angina. Antibiotic administration: zosyn. Differential Diagnosis sepsis. The patient's Wells Deep Vein Thrombosis Score was calculated as follows: Total Score: 0-2 Pts- Low Risk. The patient's pulmonary embolism risk score was calculated as follows: Total Score: 0-2 points. This patient was found to be at low risk for a pulmonary embolism by using the Well's assessment criteria. Immunization status: Pneumococcal vaccine: Influenza vaccine: Data reviewed: vital signs, nurses notes, lab test result(s), EKG, radiologic studies, plain films. Data interpreted: environmental monitoring technician: rate is 82 beats/min, rhythm is regular, Pulse oximetry: on room air is 97 %. Test interpretation: by ED physician or midlevel provider: ECG, plain radiologic studies. Counseling: I had a detailed discussion with the patient and/or guardian regarding: the historical points, exam findings, and any diagnostic results supporting the discharge/admit diagnosis, lab results, radiology results, the need for further work-up and treatment in the hospital. 09/06 20:41 Order name: Basic Metabolic Panel; Complete Time: 21:45 [facility] 09/06 20:41 Order name: CBC with Diff; Complete Time: 21:21 [facility] 09/06 20:41 Order name: LFT's; Complete Time: 21:45 [facility] 09/06 20:41 Order name: Magnesium; Complete Time: 21:45 [facility] 09/06 20:41 Order name: NT PRO-BNP; Complete Time: 21:45 [facility] 09/06 20:41 Order name: PT-INR; Complete Time: 21:21 [facility] 09/06 20:41 Order name: Troponin HS; Complete Time: 21:45 [facility] 09/06 20:41 Order name: Blood Culture Adult (2) [facility] 09/06 20:41 Order name: Lactate; Complete Time: 21:43 [facility] 09/06 20:41 Order name: Urine Culture [facility] 09/06 20:41 Order name: SARS-COV-2 RT PCR (Document "Date of Onset" if Symptomatic) [facility] 09/06 20:41 Order name: Procalcitonin; Complete Time: 22:00 [facility] 09/06 22:13 Order name: Urine Dipstick-Ancillary; Complete Time: 22:25 EDNM 09/07 01:48 Order name: Creatine Phosphokinase [facility] 09/06 20:41 Order name: XRAY Chest (1 view); Complete Time: 22:25 [facility] 09/07 01:48 Order name: CKMB Creatine Kinase MB [facility] 09/07 03:47 Order name: CBC with Automated Diff EDNM 09/07 04:10 Order name: CBC Smear Scan [facility] 09/07 04:22 Order name: Comprehensive Metabolic Panel [facility] 09/07 04:22 Order name: Phosphorus [facility] 09/07 04:22 Order name: Troponin High Sensitivity [facility] 09/07 04:22 Order name: Magnesium [facility] 09/07 04:22 Order name: Thyroid Stimulating Hormone [facility] 09/07 04:51 Order name: T4 Free [facility] 09/07 06:26 Order name: Urinalysis [facility] 09/07 06:40 Order name: Urine Microscopic Only [facility] 09/07 11:29 Order name: Troponin High Sensitivity [facility] 09/06 20:41 Order name: EKG; Complete Time: 20:42 [facility] 09/06 20:41 Order name: Cardiac monitoring; Complete Time: 21:48 [facility] 09/06 20:41 Order name: EKG - Nurse/Tech; Complete Time: 21:48 [facility] 09/06 20:41 Order name: IV Saline Lock [facility] 09/06 20:41 Order name: Labs collected and sent; Complete Time: 21:10 [facility] 09/06 20:41 Order name: O2 Per Protocol; Complete Time: 21:10 [facility] 09/06 20:41 Order name: O2 Sat Monitoring; Complete Time: 21:10 [facility] 09/06 20:41 Order name: Urine Dipstick-Ancillary (obtain specimen); Complete Time: 22:14 [facility] 09/06 20:41 Order name: Saldana; Complete Time: 22:14 [facility] EC:48 Rate is 104 beats/min. Rhythm is irregularly irregular. QRS [place]ger is Normal. LA interval laurel is normal. QRS interval is normal. QT interval is normal. No Q waves. T waves are Normal. No ST changes noted. Clinical impression: Atrial Fibrillation. Interpreted by me. Reviewed by me. Administered Medications: 21:46 Not Given (Duplicate Order): NS 0.9% 1000 ml IV at 75 ml/hr continuous laurel 22:48 Drug: Albuterol - atroVENT (ipratropium) (3:1) (2.5 mg - 0.5 mg) 3 ml Route: Nebulizer; adriel 22:49 Drug: Lasix (furosemide) 20 mg Route: IVP; Site: left antecubital; adriel 22:49 Drug: SOLU-Medrol (methylPrednisoLONE) 125 mg Route: IVP; Site: left antecubital; adriel 22:49 Drug: Zosyn (piperacillin-tazobactam) 3.375 grams Route: IVPB; Infused Over: 60 mins; adriel Site: left antecubital; 09/07 00:05 Not Given (Duplicate Order): Lasix (furosemide) 40 mg IVP once; give over 2 minutes adriel Disposition Summary: 09/06/21 21:26 Hospitalization Ordered Hospitalization Status: Inpatient Admission laurel Provider: Daryl Griffin cha Condition: Fair laurel Problem: new laurel Symptoms: have improved laurel Bed/Room Type: Standard laurel Location: Telemetry/MedSurg (Inpatient)(09/07/21 13:43) Room Assignment: 219(09/07/21 13:43) dw Diagnosis - Dyspnea laurel - Combined systolic (congestive) and diastolic (congestive) heart failure laurel - Hypoxemia laurel - Pleural effusion, not elsewhere classified laurel - Venous insufficiency (chronic) (peripheral) laurel - Chronic atrial fibrillation laurel Forms: - Medication Reconciliation Form laurel - SBAR form laurel Signatures: Dispatcher [employer] EDMS Kendra Lorenzo RN RN mw Woody, Diana, RN RN dw Anderson, Corey, MD MD cha O'Farrell, Brenda, RN RN bo Brown, Sophia, PA PA sb3 Corrections: (The following items were deleted from the chart) 09/06 21:34 21:26 Telemetry/MedSurg (Inpatient) laurel 21:34 21:26 laurel 09/07 13:43 09/06 21:34 [facility] ER HOLD [facility] 05/21 13:43 05/20 21:34 ERHOLD- mw dw
[2021-09-06 21:34] LABS: Bilirubin Direct 0.2 mg/dL (0-0.2); Bilirubin Total 0.4 mg/dL (0.2-1.0); Protein, Total 6.4 g/dL (6.4-8.2)
[2021-09-06 21:43] LABS: Troponin High Sensitivity 119.9 pg/mL (<58.9)
[2021-09-06] MEDS ORDERED: ALBUTEROL 2.5 MG/3 ML NEB SOL ONE (21:44)
[2021-09-06] MEDS ORDERED: IPRATROPIUM BROM 0.5MG/2.5ML ONE (21:44)
[2021-09-06] MEDS ORDERED: FUROSEMIDE 20 MG/ 2ML VIAL ONE (21:44)
[2021-09-06] MEDS ORDERED: METHYLPREDNISOLONE 125 MG INJ ONE (21:44)
[2021-09-06] MEDS ORDERED: NA CHLORIDE 0.9% 50 ML ONE (21:45)
[2021-09-06] MEDS ORDERED: NA CHLORIDE 0.9% 1,000 ML ONE (21:45)
[2021-09-06] MEDS ORDERED: PIPERACIL/TAZO 3.375 GM VIAL IV ONE (21:45)
--- NOTE | 2021-09-06 22:03 | RAD REPORT ---
EXAM DESCRIPTION: RAD - Chest Single View - 09/06/2021 9:11 pm CLINICAL HISTORY: Cough COMPARISON: Portable January 2021 TECHNIQUE: AP portable chest image was obtained 09/06/2021 9:11 pm . FINDINGS: Lung volumes are very low. Bilateral pleural effusions are present. There is additional ri ght base opacification that could be atelectasis and pleural effusion or infiltrate. Cardiac silhouet te is enlarged by portable technique and low lung volumes. Central vasculature is prominent. No pneum othorax. No acute bony abnormality seen. No acute aortic findings suspected. IMPRESSION: Bilateral pleural effusions with right base infiltrate and/ or atelectasis. Prominent heart, vasculature and lung markings could indicate concurrent mild failure or volume overl oad.
[2021-09-06 22:13] LABS: Urine Blood Negative (Negative); Urine Glucose Negative (Negative); Urine Protein Negative (Negative); Urine pH 5.5 (5.0-7.0)
--- NOTE | 2021-09-06 23:50 | P.HP ---
Certification for Inpatient Patient admitted to: Inpatient With expected LOS: >2 Midnights Patient will require the following post-hospital care: None Practitioner: I am a practitioner with admitting privileges, knowledge of patient current condition, hospital course, and medical plan of care. Services: Services provided to patient in accordance with Admission requirements found in Title 42 Section 412.3 of the Code of Federal Regulations <Bisi Da Silva - Last Filed: 09/07/21 00:21> Patient History Date of Service: 09/07/21 Primary Care Provider: Segundo Reason for admission: Weakness, CHF, Hypoxia History of Present Illness: Patient is an 81-year-old female with hypertension, hypothyroidism, CHF, afib (not on anticoagulation) who is a resident at [facility] who presented to the ED via EMS with complaints of increasing weakness. Lab work-up revealed creatinine 1.53, WBC 3.1, hemoglobin 10, troponin 119, BNP 10,000, Pro-Rodolfo 0.2. Chest x-ray showed bilateral pleural effusions with right base infiltrate and/or atelectasis. Prominent heart, vasculature, and lung markings could indicate concurrent mild failure or volume overload. Patient does have swelling in LE up to thighs. She was given breathing treatments, Zosyn, Solu-Medrol, and Lasix in the ED. Upon my assessment, patient reports she is just feeling very weak and tired and mild shortness of breath. We will admit patient for further evaluation and treatment. - Past Medical/Surgical History Diabetic: No -: Breast Cancer -: CHF -: Hypertension -: Hypothyroidism -: COPD -: Hemachromatosis -: Afib -: Right breast lumpectomy -: Cholecystectomy -: pelvic organ prolapse surgery Psychosocial/ Personal History: Patient lives at [facility]. - Family History Brother -: Heart disease, Lung disease, Diabetes, Cancer Notes: Lung Ca, Myasthenia Gravis Father -: Lung disease, Cancer Notes: Lung Ca - Social History Smoking Status: Never smoker Alcohol use: No CD- Drugs: No Caffeine use: Yes Place of Residence: [place] <Bisi Da Silva - Last Filed: 09/07/21 00:21> Date of Service: 09/07/21 <Daryl Griffin - Last Filed: 09/09/21 05:44> Allergies ciprofloxacin Allergy (Verified 07/26/20 22:31) seecom nitrofurantoin macrocrystal [From Macrodantin] Allergy (Verified 06/11/15 23:54) Nausea/Vomiting Home Medications: Acetaminophen [Pain Relief] 650 mg PO Q4HP PRN 09/07/21 Acetaminophen with Codeine [Acetaminophen-Cod #3 Tablet] 1 each PO Q6HP PRN 09/07/21 Amino Acids/Protein Hydr/Fiber [Pro-Stat Renal Care Liquid Pkt] 30 ml PO BID 09/07/21 Amiodarone HCl [Cordarone Tab] 200 mg PO DAILY 09/07/21 Ascorbic Acid [Vitamin C] 500 mg PO BID 09/07/21 Benzonatate [Tessalon Perle] 100 mg PO TIDP PRN 09/07/21 Cetirizine HCl 10 mg PO DAILY 09/07/21 Docusate [Colace Cap] 100 mg PO BEDTIME 09/07/21 Furosemide [Lasix] 40 mg PO DAILY 09/07/21 Ipratropium [place] 0.2 mg IH TID 09/07/21 Levothyroxine [Synthroid] 112 mcg PO [id number] 09/07/21 Mag Hydrox/Al Hydrox/Simeth [Maalox Plus X-Strength Susp] 30 ml PO Q6HP PRN 09/07/21 Melatonin 6 mg PO BEDTIME 09/07/21 Multivitamin with Minerals [One Daily Plus Minerals] 1 each PO DAILY 09/07/21 Omeprazole 20 mg PO DAILY 09/07/21 Potassium Chloride [Micro-K] 10 meq PO DAILY 09/07/21 Promethazine HCl 12.5 mg PO Q6HP PRN 09/07/21 Sodium Chloride [Saline Nose [place]] 1 spray NS Q4HP PRN 09/07/21 Tamsulosin HCl 1 cap PO DAILY 09/07/21 Zinc Sulfate [Zinc Sulfate*] 220 mg PO DAILY 09/07/21 acetaZOLAMIDE [Acetazolamide] 250 mg PO BID 09/07/21 Review of Systems General: Weakness Respiratory: Shortness of Breath Musculoskeletal: Foot Pain <Bisi Da Silva - Last Filed: 09/07/21 00:21> Physical Examination - Physical Exam General: Alert, In no apparent distress HEENT: Atraumatic, PERRLA, Other (dry mucous membranes ), EOMI, Sclerae nonicteric Neck: Supple, 2+ carotid pulse no bruit, No LAD, Without JVD or thyroid abnormality Respiratory: Diminished Cardiovascular: Regular rate/rhythm, Normal S1 S2, Edema (2+ pitting edema extending to thighs bilaterally ) Gastrointestinal: Normal bowel sounds, Soft and benign, No tenderness Musculoskeletal: No tenderness Integumentary: Erythema (bilateral lower extremities), [place] Neurological: Normal speech, Normal tone, Sensation intact, Normal affect Urinary: Saldana catheter - Studies Laboratory Data (last 24 hrs) 09/06/21 21:02: PT 10.9, INR 0.99 09/06/21 21:02: WBC 3.1 L D, Hgb 10.3 L, Hct 33.1 L D, Plt Count 55 L 09/06/21 21:02: Sodium 140, Potassium 3.5, BUN 35 H, Creatinine 1.53 H, Glucose 143 H, Magnesium 2.6 H D, Total Bilirubin 0.4, AST 18, ALT 30, Alkaline Phosphatase 107 <Bisi Da Silva - Last Filed: 09/07/21 00:21> - Studies Microbiology Data (last 24 hrs): 09/06/21 22:11 Catheterized Urine [place] Count - Final No growth. 09/06/21 22:11 Catheterized Urine - Final No growth. <Daryl Griffin - Last Filed: 09/09/21 05:44> Assessment and Plan - Problems (Diagnosis) (1) Weakness Current Visit: Yes Status: Acute (2) Pleural effusion Current Visit: Yes Status: Acute (3) CHF (congestive heart failure) Current Visit: Yes Status: Chronic Qualifiers: Heart failure type: diastolic Heart failure chronicity: acute on chronic Qualified Code(s): I50.33 - Acute on chronic diastolic (congestive) heart failure (4) Anasarca Current Visit: Yes Status: Acute (5) EMILIO (acute kidney injury) Current Visit: Yes Status: Acute (6) Atrial fibrillation Current Visit: No Status: Chronic (7) COPD (chronic obstructive pulmonary disease) Current Visit: No Status: Chronic Qualifiers: COPD type: unspecified COPD Qualified Code(s): J44.9 - Chronic obstructive pulmonary disease, unspecified (8) HX: breast cancer Current Visit: No Status: Chronic (9) Hypertension Current Visit: No Status: Chronic Qualifiers: Hypertension type: primary hypertension Qualified Code(s): I10 - Essential (primary) hypertension (10) Hypothyroidism Current Visit: No Status: Chronic Qualifiers: Hypothyroidism type: unspecified Qualified Code(s): E03.9 - Hypothyroidism, unspecified - Plan -Cardiology consulted for CHF exacerbation. 1200cc fluid restriction. Monitor I&Os. IV lasix 40 mg BID -troponin elevated likely secondary to CHF exacerbation. Will recheck q6x2 and check cpk and ckmb. -Pulm consulted for possible right base infiltrate, SHOB, and elevated procal. Cont solumedrol and breathing treatments -Urine negative for UTI -Patient requiring supplemental oxygen and requires cpap at night. Ordered -Reconcile and continue home medications -Cont zosyn until infection is ruled out. Blood cultures drawn -Cr slightly elevated. Monitor and hold nephrotoxic drugs. -monitor and replete electrolytes as necessary -Heparin for VTE ppx Discharge Plan: Intermediate Plan to discharge in: Greater than 2 days - Advance Directives Does patient have a Living Will: Yes Does patient have a Durable POA for Healthcare: Yes - Code Status/Comfort Care Code Status Assessed: Yes (DNR) Critical Care: No Time Spent Managing Pts Care (In Minutes): 70 <Bisi Da Silva - Last Filed: 09/07/21 00:21> - Plan SUBJECTIVE: Agree with the HPI as mentioned above OBJECTIVE: Vital Signs: reviewed General: WNL HEENT:WNL CV: WNL Lungs: WNL Abd: WNL Ext: WNL ASSESSMENT: 1. Acute CHF exacerbation PLAN: Plan as mentioned above <Daryl Griffin - Last Filed: 09/09/21 05:44>
[2021-09-07] MEDS ORDERED: ONDANSETRON 4 MG/2 ML VIAL IV PRN (00:43)
[2021-09-07] MEDS ORDERED: ALBUTEROL 2.5 MG/3 ML NEB SOL NEB PRN (00:43)
[2021-09-07] MEDS: PIPER TAZO 3.375 GM in NA CHLORIDE 0.9% 100 ML IV SCH ×3 (00:53→16:01)
[2021-09-07] MEDS: METHYLPREDNISOLONE 40 MG INJ IV SCH ×3 (00:56→16:01)
[2021-09-07] MEDS ORDERED: METHYLPREDNISOLONE 40 MG INJ ONE ×2 (00:59→09:29)
[2021-09-07] MEDS ORDERED: HEPARIN 5000 UNIT/ML 1 ML VIAL SQ SCH (01:00)
[2021-09-07 01:48] LABS: CKMB Creatine Kinase MB 2.3 ng/mL (1.0-3.6)
[2021-09-07 03:45] LABS: Absolute Lymphocytes (CBC) 0.1 K/uL (0.7-4.9); Hematocrit 33.5 % (36.0-45.0); Lymphocytes % 4.2 % (15.3-44.8); MPV 8.7 fL (7.6-11.3); RBC Red Blood Cell Count 2.76 M/uL (3.86-4.86)
[2021-09-07 04:09] LABS: White Blood Cell Scan OK (OK)
[2021-09-07 04:10] LABS: Albumin 2.9 g/dL (3.4-5.0); Anisocytosis 2+; Basophilic Stippling 1+; Bilirubin Total 0.5 mg/dL (0.2-1.0); Blood Morphology Comment NOTED (NOT SEEN); Hypochromasia 1+; Macrocytosis 2+; Magnesium 2.3 mg/dL (1.8-2.4); Ovalocytes 2+; Phosphorus 4.7 mg/dL (2.5-4.9); Platelet Estimate DECR; Potassium 3.7 mmol/L (3.5-5.1); Protein, Total 6.2 g/dL (6.4-8.2); Stomatocytes 1+; Teardrop Cell 1+
[2021-09-07 04:21] LABS: Thyroid Stimulating Hormone 8.3 uIU/mL (0.360-3.740); Troponin High Sensitivity 109.8 pg/mL (<58.9)
[2021-09-07 06:26] LABS: Urine Appearance Clear (Clear); Urine Bilirubin Negative (Negative); Urine Blood 2+ (Negative); Urine Color Yellow (Yellow); Urine Glucose Negative (Negative); Urine Microscopic Reflex ORDER UMIC; Urine Protein 1+ (Negative); Urine pH 5.5 (5.0-7.0)
[2021-09-07 06:40] LABS: Urine Bacteria <20 /HPF (<20); Urine Mucus 1+ /HPF (NONE SEEN); Urine RBC >50 /HPF (NONE SEEN)
[2021-09-07] MEDS: FUROSEMIDE 40 MG/4 ML VIAL IV SCH ×2 (09:00→16:02)
[2021-09-07] MEDS ORDERED: PIPERACIL/TAZO 3.375 GM VIAL IV ONE (09:29)
[2021-09-07] MEDS ORDERED: FUROSEMIDE 40 MG/4 ML VIAL ONE (09:29)
[2021-09-07] MEDS ORDERED: NA CHLORIDE 0.9% 100 ML IV ONE (09:29)
--- NOTE | 2021-09-07 11:06 | EKG ---
Test Date: 2021-09-06 Test Time: 21:41:54 Grants Specialist: MB MEASUREMENT RESULTS: Intervals: Rate: 104 MD: QRSD: 86 QT: 298 QTc: 391 [place]: P: MD: QRS: 113 T: 256 INTERPRETIVE STATEMENTS: Atrial fibrillation with rapid ventricular response Right axis deviation Low voltage QRS Nonspecific T wave abnormality Abnormal ECG Compared to ECG 01/21/2021 02:51:24 Right-axis deviation now present Low QRS voltage now present T-wave abnormality now present Myocardial infarct finding no longer present ST (T wave) deviation no longer present Electronically Signed On 09-07-21 11:05:47 CDT by Vineet Goel
[2021-09-07] MEDS: ACETAMINOPHEN 500 MG TAB PO PRN (18:20)
[2021-09-08] MEDS: PIPER TAZO 3.375 GM in NA CHLORIDE 0.9% 100 ML IV SCH ×3 (00:28→16:20)
[2021-09-08] MEDS: METHYLPREDNISOLONE 40 MG INJ IV SCH ×3 (00:29→16:21)
[2021-09-08 04:06] LABS: Absolute Lymphocytes (CBC) 0.2 K/uL (0.7-4.9); Lymphocytes % 5.4 % (15.3-44.8); MPV 9.6 fL (7.6-11.3); RBC Red Blood Cell Count 2.54 M/uL (3.86-4.86)
[2021-09-08 04:21] LABS: Albumin 2.8 g/dL (3.4-5.0); Bilirubin Total 0.4 mg/dL (0.2-1.0); Potassium 3.7 mmol/L (3.5-5.1); Protein, Total 5.9 g/dL (6.4-8.2)
[2021-09-08] MEDS: FUROSEMIDE 40 MG/4 ML VIAL IV SCH ×2 (08:41→16:21)
--- NOTE | 2021-09-08 15:36 | PN ---
Date of Progress Note: 09/06/2021 Ms. Gonzáles is 81. Came in with CHF, pancytopenia, COPD exacerbation, atrial fibrillation. Today, he r heart rate remained 113, in AFib. She has 100% saturation on CPAP and BiPAP. Her creatinine is 1. 43, hemoglobin is 9.7. Her troponin is 99.4. BNP is elevated at 10,000. Echocardiogram is pending. She remains on antibiotics and steroids as well as Lasix, inhalers. She is on heparin. We need to resume her amiodarone when she is able to. See what her echocardiogram shows. Continue regimen oth erwise. Continue to follow her. YANNICK/ALDO Voice ID: [id number] Report ID: [id number]
--- NOTE | 2021-09-08 17:00 | CON ---
Date of Consultation: 09/07/2021 Reason For Consultation: Congestive heart failure. History Of Present Illness: Ms. Gonzáles is an 81-year-old woman. She is a do not resuscitate. She h as a history of atrial fibrillation, on amiodarone. Has a history of COPD for which she takes inhale rs. She has a history of hypothyroidism, chronic diastolic congestive heart failure, gastroesophagea l reflux disease. Came in with congestive heart failure. Denied chest pain. Denies nausea, vomitin g, diaphoresis, PND, orthopnea, pedal edema, palpitations, or syncope. Past Medical History: As stated above. Allergies: SHE IS ALLERGIC TO CIPROFLOXACIN AND NITROFURANTOIN. Review of Systems: Negative. Social History: Negative. Family History: Noncontributory. Medications: At home include amiodarone, inhalers, Lasix, Synthroid, Prilosec, and Diamox. Physical Examination: Vital Signs: Stable. She was afebrile. She was in atrial fibrillation with normal ventricular resp onse. HEENT: Negative. Neck: Supple with no bruit, lymphadenopathy, JVD, or thyromegaly. Chest: Revealed some crackles on both bases with expiratory wheezing. Cardiac: Revealed atrial fibrillation. No murmurs, gallops, or rubs. Abdomen: Benign. Extremities: Revealed no clubbing, cyanosis, or edema. Diagnostic Data: Available. She had a low white count of 3000, hemoglobin was 10,000, platelet coun t was 50,000. Creatinine is 1.45. O2 saturation was 98% on CPAP and BiPAP. Her glucose was 158. T roponin was 109. Her TSH was 8.3. Impression And Plan: 1.Acute on chronic diastolic congestive heart failure. 2.Pancytopenia. 3.Diabetes, poorly controlled. 4.Chronic obstructive pulmonary disease exacerbation. 5.Renal insufficiency. 6.Atrial fibrillation, rate controlled on amiodarone. 7.Hypothyroidism. 8.Gastroesophageal reflux disease. We need to continue treatment for chronic obstructive pulmonary disease and congestive heart failure. Echocardiogram is pending. Continue antibiotics. Consider He matology consultation. We will watch her I's and O's and kidney function, consider renal involvement . I will continue to follow. YANNICK/ALDO Voice ID: [id number] Report ID: [id number]
[2021-09-08] MEDS: ACETAMINOPHEN 500 MG TAB PO PRN (18:23)
[2021-09-09] MEDS: PIPER TAZO 3.375 GM in NA CHLORIDE 0.9% 100 ML IV SCH ×3 (01:23→16:40)
[2021-09-09] MEDS: METHYLPREDNISOLONE 40 MG INJ IV SCH ×2 (01:23→08:48)
[2021-09-09 03:37] LABS: Absolute Lymphocytes (CBC) 0.2 K/uL (0.7-4.9); Hematocrit 31.4 % (36.0-45.0); Lymphocytes % 5.8 % (15.3-44.8); MPV 9.1 fL (7.6-11.3); RBC Red Blood Cell Count 2.66 M/uL (3.86-4.86)
[2021-09-09 03:53] LABS: Albumin 2.9 g/dL (3.4-5.0); Bilirubin Total 0.4 mg/dL (0.2-1.0); Potassium 3.8 mmol/L (3.5-5.1); Protein, Total 6.2 g/dL (6.4-8.2)
[2021-09-09] MEDS ORDERED: SOD CHLORIDE 0.65% NASAL SPRAY NAS PRN (05:33)
--- NOTE | 2021-09-09 05:41 | P.PN ---
Date of Service: 09/07/21 Subjective Patient is clinically feeling better. However, patient is still short of breath. Continue with gentle diuresing. Echocardiogram pending Thursday. Will get pulmonary consultation as well. The Physical Examination - Physical Exam General: Alert, In no apparent distress Respiratory: Diminished Cardiovascular: Regular rate/rhythm, Normal S1 S2, Edema (2+ pitting edema extending to thighs bilaterally ) Gastrointestinal: Normal bowel sounds, Soft and benign, No tenderness Integumentary: Erythema (bilateral lower extremities), Warmth Neurological: Normal speech, Normal tone, Sensation intact, Normal affect Urinary: Saldana catheter Assessment and Plan - Problems (Diagnosis) (1) Weakness Current Visit: Yes Status: Acute (2) Pleural effusion Current Visit: Yes Status: Acute (3) CHF (congestive heart failure) Current Visit: Yes Status: Chronic Qualifiers: Heart failure type: diastolic Heart failure chronicity: acute on chronic Qualified Code(s): I50.33 - Acute on chronic diastolic (congestive) heart failure (4) Anasarca Current Visit: Yes Status: Acute (5) EMILIO (acute kidney injury) Current Visit: Yes Status: Acute (6) Atrial fibrillation Current Visit: No Status: Chronic (7) COPD (chronic obstructive pulmonary disease) Current Visit: No Status: Chronic Qualifiers: COPD type: unspecified COPD Qualified Code(s): J44.9 - Chronic obstructive pulmonary disease, unspecified (8) HX: breast cancer Current Visit: No Status: Chronic (9) Hypertension Current Visit: No Status: Chronic Qualifiers: Hypertension type: primary hypertension Qualified Code(s): I10 - Essential (primary) hypertension (10) Hypothyroidism Current Visit: No Status: Chronic Qualifiers: Hypothyroidism type: unspecified Qualified Code(s): E03.9 - Hypothyroidism, unspecified - Plan -Cardiology consulted for CHF exacerbation. 1200cc fluid restriction. Monitor I&Os. IV lasix 40 mg BID; continue with potassium supplementation -troponin elevated likely secondary to CHF exacerbation. recheck troponin every 6 hours -Pulm consulted for possible right base infiltrate, SHOB, and elevated procal. Cont solumedrol and breathing treatments -Urine negative for UTI -Patient requiring supplemental oxygen and requires cpap at night. Ordered -Reconcile and continue home medications -Cont zosyn until infection is ruled out. Blood cultures drawn -Cr slightly elevated. Monitor and hold nephrotoxic drugs. -monitor and replete electrolytes as necessary -Heparin for VTE ppx Discharge Plan: [facility] Plan to discharge in: Greater than 2 days
--- NOTE | 2021-09-09 05:44 | P.PN ---
Date of Service: 09/08/21 Subjective patient continues to do little bit better. Still short of breath. Will give physical therapy assessment as well. Continue with encouraging in or out of bed and we will get an echocardiogram in the morning. Hopefully, with gentle diuresing and with neb treatments and steroids patient will be better to discharge over the next 48 hours. Physical Examination - Vitals reviewed - Physical Exam General: Alert, In no apparent distress Respiratory: Diminished Cardiovascular: Regular rate/rhythm, Normal S1 S2, Edema (2+ pitting edema extending to thighs bilaterally ) Gastrointestinal: Normal bowel sounds, Soft and benign, No tenderness Integumentary: Erythema (bilateral lower extremities), Warmth Neurological: Normal speech, Normal tone, Sensation intact, Normal affect Urinary: Saldana catheter Assessment and Plan - Problems (Diagnosis) (1) Weakness Current Visit: Yes Status: Acute (2) Pleural effusion Current Visit: Yes Status: Acute (3) CHF (congestive heart failure) Current Visit: Yes Status: Chronic Qualifiers: Heart failure type: diastolic Heart failure chronicity: acute on chronic Qualified Code(s): I50.33 - Acute on chronic diastolic (congestive) heart failure (4) Anasarca Current Visit: Yes Status: Acute (5) EMILIO (acute kidney injury) Current Visit: Yes Status: Acute (6) Atrial fibrillation Current Visit: No Status: Chronic (7) COPD (chronic obstructive pulmonary disease) Current Visit: No Status: Chronic Qualifiers: COPD type: unspecified COPD Qualified Code(s): J44.9 - Chronic obstructive pulmonary disease, unspecified (8) HX: breast cancer Current Visit: No Status: Chronic (9) Hypertension Current Visit: No Status: Chronic Qualifiers: Hypertension type: primary hypertension Qualified Code(s): I10 - Essential (primary) hypertension (10) Hypothyroidism Current Visit: No Status: Chronic Qualifiers: Hypothyroidism type: unspecified Qualified Code(s): E03.9 - Hypothyroidism, unspecified - Plan -Cardiology consulted for CHF exacerbation. 1200cc fluid restriction. Monitor I&Os. Continue with IV lasix 40 mg BID; continue with potassium supplementation -troponin elevated likely secondary to CHF exacerbation. recheck troponin stable -Pulm consulted for possible right base infiltrate, SHOB, and elevated procal. Cont solumedrol and breathing treatments -Urine negative for UTI -Patient requiring supplemental oxygen and requires cpap at night. Ordered -Reconcile and continue home medications -Cont zosyn until infection is ruled out. Blood cultures drawn -Cr slightly elevated. Monitor and hold nephrotoxic drugs. -monitor and replete electrolytes as necessary -Heparin for VTE ppx Discharge Plan: [facility] Plan to discharge in: Greater than 2 days
[2021-09-09] MEDS: AMIODARONE HCL 200 MG TAB PO SCH (05:59)
[2021-09-09] MEDS: LEVOTHYROXINE SOD 0.112 MG TAB PO SCH (06:03)
[2021-09-09] MEDS: IPRATROPIUM BROM 0.5MG/2.5ML IH SCH ×3 (07:52→19:40)
[2021-09-09] MEDS: FUROSEMIDE 40 MG/4 ML VIAL IV SCH ×2 (08:47→16:40)
[2021-09-09] MEDS: TAMSULOSIN 0.4 MG SR CAP PO SCH (08:47)
[2021-09-09] MEDS: ZINC SULFATE 220 MG CAP PO SCH (08:48)
[2021-09-09] MEDS: acetaZOLAMIDE 250 MG TAB PO SCH ×2 (08:48→21:37)
[2021-09-09] MEDS: POTASSIUM CL SA 10 MEQ TAB PO SCH (08:48)
[2021-09-09] MEDS: PANTOPRAZOLE 40MG TABLET PO SCH (08:48)
[2021-09-09] MEDS ORDERED: AMIODARONE HCL 200 MG TAB PO SCH (09:00)
[2021-09-09] MEDS: ACETAMINOPHEN 325 MG TABLET PO PRN ×2 (09:01→18:42)
--- NOTE | 2021-09-09 12:36 | ECHO ---
HEIGHT: 5 ft 6 in WEIGHT: 170 lb 0 oz DATE OF STUDY: 09/09/[address]: Vineet Goel MD 2-DIMENSIONAL: YES M.MODE: YES DOPPLER: YES COLOR FLOW: YES TDS: PORTABLE: DEFINITY: BUBBLE STUDY: DIAGNOSIS: CONGESTIVE HEART FAILURE CARDIAC HISTORY: CATHERIZATION: NO SURGERY: NO PROSTHETIC VALVE: NO PACEMAKER: NO MEASUREMENTS (cm) DIASTOLIC (NORMALS) SYSTOLIC (NORMALS) IVSd 0.9 (0.6-1.2) LA Diam 4.5 (1.9-4.0) LVEF 63% LVIDd 4.6 (3.5-5.7) LVIDs 3.0 (2.0-3.5) %FS 34% LVPWd 1.3 (0.6-1.2) Ao Diam 3.0 (2.0-3.7) 2 DIMENSIONAL ASSESSMENT: RIGHT ATRIUM: DILATED LEFT ATRIUM: DILATED RIGHT VENTRICLE: DILATED LEFT VENTRICLE: NORMAL TRICUSPID VALVE: NORMAL MITRAL VALVE: MITRAL ANNULAR CALCIFICATION PULMONIC VALVE: NORMAL AORTIC VALVE: SCLEROSIS PERICARDIAL EFFUSION: NONE AORTIC ROOT: NORMAL LEFT VENTRICULAR WALL MOTION: NORMAL EJECTION FRACTION DOPPLER/COLOR FLOW: DIASTOLIC DYSFUNCTION. MILD TRICUSPID REGURGITATION. MILD PULMONARY HYPERTENSION. COMMENTS: NORMAL LEFT VENTRICULAR EJECTION FRACTION. DIASTOLIC DYSFUNCTION. RIGHT ATRIAL ENLARGEMENT. MITRAL ANNULAR CALCIFICATION. AORTIC SCLEROSIS. TECHNOLOGIST: VIKA PEREZ
--- NOTE | 2021-09-09 14:33 | P.PN ---
Subjective Date of Service: 09/09/21 Primary Care Provider: Segundo Chief Complaint: Weakness, CHF, Hypoxia Subjective: No new changes (States issues with BiPAP overnight Staff report patient refusing BiPAP but patient denies) Physical Examination - Vital Signs Temperature: 98.0 F Blood Pressure: 107/67 Pulse: 112 Respirations: 24 Pulse Ox (%): 97 Assessment And Plan Discharge Plan: Home Physician Review: Patient Assessed, Agree with Above Assessment and Plan Physician Review Additional Text: - Physical Exam General: Alert, In no apparent distress, on nasal cannula 02 Respiratory: Diminished Cardiovascular: Regular rate/rhythm, Normal S1 S2, Edema (2+ pitting edema extending to thighs bilaterally ) Gastrointestinal: Normal bowel sounds, Soft and benign, No tenderness Integumentary: Erythema (bilateral lower extremities), Warmth Neurological: Normal speech, Normal tone, Sensation intact, Normal affect Urinary: Saldana catheter Assessment and Plan - Problems (Diagnosis) (1) Weakness Current Visit: Yes Status: Acute (2) Pleural effusion Current Visit: Yes Status: Acute (3) CHF (congestive heart failure) Current Visit: Yes Status: Chronic Qualifiers: Heart failure type: diastolic Heart failure chronicity: acute on chronic Qualified Code(s): I50.33 - Acute on chronic diastolic (congestive) heart failure (4) Anasarca Current Visit: Yes Status: Acute (5) EMILIO (acute kidney injury) Current Visit: Yes Status: Acute (6) Atrial fibrillation Current Visit: No Status: Chronic (7) COPD (chronic obstructive pulmonary disease) Current Visit: No Status: Chronic Qualifiers: COPD type: unspecified COPD Qualified Code(s): J44.9 - Chronic obstructive pulmonary disease, unspecified (8) HX: breast cancer Current Visit: No Status: Chronic (9) Hypertension Current Visit: No Status: Chronic Qualifiers: Hypertension type: primary hypertension Qualified Code(s): I10 - Essential (primary) hypertension (10) Hypothyroidism Current Visit: No Status: Chronic Qualifiers: Hypothyroidism type: unspecified Qualified Code(s): E03.9 - Hypothyroidism, unspecified - Plan -Slowly improving shortness of breath, continue to wean O2 Follow repeat chest x-ray in a.m. Continue fluid restriction to less than 1.2 L/day, continue Lasix 40 twice daily Follow troponin trend Continue antibiotics for presumed right base infiltrate Cont solumedrol and breathing treatments -Urine negative for UTI -Patient requiring supplemental oxygen and requires cpap at night. Ordered -Cont zosyn until infection is ruled out. Blood cultures drawn -Cr creatinine stable at 1.4, continue hold nephrotoxic drugs. -monitor and replete electrolytes as necessary -Heparin for VTE ppx Discharge Plan: [facility] Plan to discharge in: Greater than 2 days Time Spent Managing PTS Care (In Minutes): 35
--- NOTE | 2021-09-09 17:02 | RAD REPORT ---
EXAM DESCRIPTION: CT - Abdomen Pelvis Wo Contrast - 09/09/2021 3:51 pm CLINICAL HISTORY: worsneing ehmaturia , r/o renal mass/stones COMPARISON: [facility] Protocol dated 04/07/2016 TECHNIQUE: Axial [address] imaging of the abdomen and pelvis was performed without IV contrast. No IV contrast was given because of allergy, abnormal renal function, patient refusal or physician re quest. No oral contrast administered. All CT scans are performed using dose optimization technique as appropriate and may include automated exposure control or mA/KV adjustment according to patient size. FINDINGS: Interstitial thickening is evident from fibrosis, edema, infiltrate or a combination. Post erior gutter patchy opacification on the left is primarily atelectasis. Significant infiltrate is unl ikely. Trace amount of pleural fluid is seen. There is a moderate amount of right-sided pleural effus ion with right lower lobe atelectasis. Cardiomegaly is present without pericardial effusion. The liver, spleen and pancreas show no suspicious findings on non-contrast imaging. Cholecystectomy c lips are present. No abnormal biliary tree dilatation. No hydronephrosis of either kidney. No obstructing or nonobstructing calculi seen. A suspicious renal mass is not identified. A partially exophytic 3.5 cm low-density mass posterior mid right kidney mat ches up with a cyst seen on the 2016 study. There has been some interval growth but no finding that s uggest malignant etiology. Small amount of perinephric fluid in stranding are present. No significan t adrenal finding. Isodense renal masses and pyelonephritis cannot be excluded in the absence of IV c ontrast. Urinary bladder is fully contracted around a Saldana catheter precluding assessment of bladder wall thickening or mass. Atrophic uterus is present. Ovarian mass is not suspected. No dilated bowel loops or bowel wall thickening. Patient has prominent diverticulosis but no divertic ulitis. Small amount of ascites is present in the peritoneal cavity. Patient has a very pronounced an asarca pattern with fluid retention throughout the subcutaneous tissues of the abdomen and pelvis. Po stsurgical changes are present in the soft tissues of the upper right breast. No hernia, mass or bulk y lymphadenopathy. Disc and bone degenerative changes are present. No pathologic bone process identifiable. Approximatel y 50% T12 compression fracture is present believed to be chronic. IMPRESSION: A 3.5 centimeter posterior right renal mass shows imaging characteristics most consisten t with a cyst has enlarged since 2016. Isodense masses and pyelonephritis are not excluded on a noncontrast study. Probability of a renal ma ss as a source for hematuria is felt to be very low. Urinary bladder is fully contracted around a Fol ey catheter limiting assessment. Pronounced anasarca pattern with fluid retention throughout the subcutaneous fatty tissues of the low er chest, the abdomen, and the pelvis. Small amount of ascites present in the peritoneal cavity.
[2021-09-09] MEDS ORDERED: ALBUTEROL 2.5 MG/3 ML NEB SOL NEB PRN (19:00)
[2021-09-09] MEDS: MELATONIN 3 MG TABLET PO SCH (21:37)
[2021-09-09] MEDS: DOCUSATE NA 100 MG CAP PO SCH (21:37)
[2021-09-10] MEDS: PIPER TAZO 3.375 GM in NA CHLORIDE 0.9% 100 ML IV SCH ×3 (00:21→16:50)
[2021-09-10] MEDS: IPRATROPIUM BROM 0.5MG/2.5ML IH SCH ×4 (01:20→21:20)
[2021-09-10] MEDS: LEVOTHYROXINE SOD 0.112 MG TAB PO SCH (06:05)
--- NOTE | 2021-09-10 07:22 | RAD REPORT ---
EXAM DESCRIPTION: RAD - Chest Single View - 09/10/2021 5:40 am CLINICAL HISTORY: CXR follow up CHF COMPARISON: Chest Single View dated 09/06/2021; Chest Single View dated 01/18/2021; Chest Pa And Lat ( 2 Views) dated 11/25/2017; CHEST SINGLE VIEW dated 06/12/2015; Abdomen Pelvis Wo Contrast dated 022 FINDINGS: Lines: None. Lungs: Widespread airspace opacities, worse in the lung bases. Pleural: Mild to moderate bilateral pleural effusions. Cardiac: Cardiomegaly. Bones: No acute fractures. Other: IMPRESSION: Pulmonary edema with bilateral effusions which is similar to 09/06/2021.
[2021-09-10] MEDS: FUROSEMIDE 40 MG/4 ML VIAL IV SCH ×2 (08:26→16:50)
[2021-09-10] MEDS: TAMSULOSIN 0.4 MG SR CAP PO SCH (08:27)
[2021-09-10] MEDS: AMIODARONE HCL 200 MG TAB PO SCH ×2 (08:27→20:53)
[2021-09-10] MEDS: PANTOPRAZOLE 40MG TABLET PO SCH (08:27)
[2021-09-10] MEDS: acetaZOLAMIDE 250 MG TAB PO SCH ×2 (08:27→20:53)
[2021-09-10] MEDS: POTASSIUM CL SA 10 MEQ TAB PO SCH (08:27)
[2021-09-10] MEDS: ZINC SULFATE 220 MG CAP PO SCH (08:27)
[2021-09-10] MEDS ORDERED: predniSONE 20 MG TAB PO SCH (09:00)
[2021-09-10] MEDS: ACETAMINOPHEN 325 MG TABLET PO PRN (11:14)
--- NOTE | 2021-09-10 13:33 | P.PN ---
Subjective Date of Service: 09/10/21 Primary Care Provider: Segundo Chief Complaint: Weakness, CHF, Hypoxia Subjective: Worsening (Dependent on BiPAP, complaining of worsening shortness of breath, anxious to get BiPAP of) Physical Examination - Vital Signs Temperature: 97.1 F Blood Pressure: 90/61 Pulse: 111 Respirations: 18 Pulse Ox (%): 89 Assessment And Plan Physician Review: Patient Assessed, Agree with Above Assessment and Plan Physician Review Additional Text: - Physical Exam General: Alert, In no apparent distress, on BiPAP Respiratory: Diminished Cardiovascular: Regular rate/rhythm, Normal S1 S2, Edema (2+ pitting edema extending to thighs bilaterally ) Gastrointestinal: Normal bowel sounds, Soft and benign, No tenderness Integumentary: Erythema (bilateral lower extremities), Warmth Neurological: Normal speech, Normal tone, Sensation intact, Normal affect Urinary: Saldana catheter Assessment and Plan - Problems (Diagnosis) (1) Weakness Current Visit: Yes Status: Acute (2) Pleural effusion Current Visit: Yes Status: Acute (3) CHF (congestive heart failure) Current Visit: Yes Status: Chronic Qualifiers: Heart failure type: diastolic Heart failure chronicity: acute on chronic Qualified Code(s): I50.33 - Acute on chronic diastolic (congestive) heart failure (4) Anasarca Current Visit: Yes Status: Acute (5) EMILIO (acute kidney injury) Current Visit: Yes Status: Acute (6) Atrial fibrillation Current Visit: No Status: Chronic (7) COPD (chronic obstructive pulmonary disease) Current Visit: No Status: Chronic Qualifiers: COPD type: unspecified COPD Qualified Code(s): J44.9 - Chronic obstructive pulmonary disease, unspecified (8) HX: breast cancer Current Visit: No Status: Chronic (9) Hypertension Current Visit: No Status: Chronic Qualifiers: Hypertension type: primary hypertension Qualified Code(s): I10 - Essential (primary) hypertension (10) Hypothyroidism Current Visit: No Status: Chronic Qualifiers: Hypothyroidism type: unspecified Qualified Code(s): E03.9 - Hypothyroidism, unspecified - Plan -still hypoxic and BiPAP dependent Chest x-ray this a.m. shows worsening bilateral pleural effusionmore prominent on right side Unable to increase IV diuretics given borderline low blood pressure Increase Lasix to every 8 Add midodrine to avoid hypotension Obtain echo to assess EF Continue fluid restriction Continue to monitor troponin trend Cardiology consult We DC Solu-Medrol since no evidence of COPD exacerbation Continue empirical antibiotics for underlying pneumonia -Cont zosyn until infection is ruled out. Blood cultures drawn -Cr creatinine stable at 1.4, continue hold nephrotoxic drugs. -monitor and replete electrolytes as necessary -Heparin for VTE ppx Discharge Plan: [facility] Plan to discharge in: Greater than 2 days 09/10/21 13:31
[2021-09-10] MEDS: MIDODRINE HCL 5 MG TABLET PO SCH ×2 (14:30→20:52)
[2021-09-10] MEDS: DOCUSATE NA 100 MG CAP PO SCH (20:52)
[2021-09-10] MEDS: MELATONIN 3 MG TABLET PO SCH (20:52)
--- NOTE | 2021-09-10 22:23 | CON ---
Date of Consultation: 09/10/2021 DICTATION ENDS HERE DULCE/ALDO Voice ID: [id number] Report ID: [id number]
[2021-09-11] MEDS: PIPER TAZO 3.375 GM in NA CHLORIDE 0.9% 100 ML IV SCH ×2 (00:31→08:42)
[2021-09-11] MEDS: FUROSEMIDE 40 MG/4 ML VIAL IV SCH ×2 (00:32→08:43)
[2021-09-11] MEDS: LEVOTHYROXINE SOD 0.112 MG TAB PO SCH (05:24)
[2021-09-11 05:41] VITALS: BMI 15.6
[2021-09-11] MEDS: PANTOPRAZOLE 40MG TABLET PO SCH (07:30)
[2021-09-11] MEDS: POTASSIUM CL SA 10 MEQ TAB PO SCH (09:00)
[2021-09-11] MEDS: MIDODRINE HCL 5 MG TABLET PO SCH ×3 (09:00→20:54)
[2021-09-11] MEDS: ZINC SULFATE 220 MG CAP PO SCH (09:00)
[2021-09-11] MEDS: AMIODARONE HCL 200 MG TAB PO SCH ×2 (09:00→20:54)
[2021-09-11] MEDS: acetaZOLAMIDE 250 MG TAB PO SCH ×2 (09:00→20:53)
[2021-09-11] MEDS: TAMSULOSIN 0.4 MG SR CAP PO SCH (09:00)
[2021-09-11] MEDS: IPRATROPIUM BROM 0.5MG/2.5ML IH SCH ×3 (09:00→20:00)
--- NOTE | 2021-09-11 10:17 | P.PN ---
Subjective Date of Service: 09/11/21 Primary Care Provider: Segundo Chief Complaint: Weakness, CHF, Hypoxia Subjective: No new changes (Diuresing well with adjusted diuretic yesterday Tolerating nasal cannula, no BiPAP overnight Scheduled for right pleural tap today More conversant this morning, but still a bit confused) Physical Examination - Vital Signs Temperature: 96.3 F Blood Pressure: 111/75 Pulse: 101 Respirations: 18 Pulse Ox (%): 93 Assessment And Plan Physician Review: Patient Assessed, Agree with Above Assessment and Plan Physician Review Additional Text: - Physical Exam General: Alert, In no apparent distress, on BiPAP Respiratory: Diminished Cardiovascular: Regular rate/rhythm, Normal S1 S2, Edema (2+ pitting edema extending to thighs bilaterally ) Gastrointestinal: Normal bowel sounds, Soft and benign, No tenderness Integumentary: Erythema (bilateral lower extremities), Warmth Neurological: Normal speech, Normal tone, Sensation intact, Normal affect Urinary: Saldana catheter Assessment and Plan - Problems (Diagnosis) (1) Weakness Current Visit: Yes Status: Acute (2) Pleural effusion Current Visit: Yes Status: Acute (3) CHF (congestive heart failure) Current Visit: Yes Status: Chronic Qualifiers: Heart failure type: diastolic Heart failure chronicity: acute on chronic Qualified Code(s): I50.33 - Acute on chronic diastolic (congestive) heart failure (4) Anasarca Current Visit: Yes Status: Acute (5) EMILIO (acute kidney injury) Current Visit: Yes Status: Acute (6) Atrial fibrillation Current Visit: No Status: Chronic (7) COPD (chronic obstructive pulmonary disease) Current Visit: No Status: Chronic Qualifiers: COPD type: unspecified COPD Qualified Code(s): J44.9 - Chronic obstructive pulmonary disease, unspecified (8) HX: breast cancer Current Visit: No Status: Chronic (9) Hypertension Current Visit: No Status: Chronic Qualifiers: Hypertension type: primary hypertension Qualified Code(s): I10 - Essential (primary) hypertension (10) Hypothyroidism Current Visit: No Status: Chronic Qualifiers: Hypothyroidism type: unspecified Qualified Code(s): E03.9 - Hypothyroidism, unspecified - Plan -Improving hypoxia, weaned off BiPAP Continue to wean off nasal cannula O2 Follow-up plan for right thoracocentesis todaynoted with bilateral pleural effusion on chest x-ray We will try to switch IV diuretics to p.o. Bumex and follow Continue spironolactone Improved blood pressure, continue midodrine Echo shows normal EF of 60% with mild TR, continue to follow Off steroid since no evidence of COPD exacerbation No evidence of infection, will DC Zosyn Negative blood culture to date Stable creatinine at 1.4, continue hold nephrotoxic drugs. -monitor and replete electrolytes as necessary -Heparin for VTE ppx Discharge Plan: [facility] Plan to discharge in: in am Time Spent Managing PTS Care (In Minutes): 31
[2021-09-11] MEDS ORDERED: POTASSIUM CL SA 10 MEQ TAB PO ONE (10:18)
[2021-09-11 12:34] LABS: Appearance SLT. TURBID (CLEAR); Body Fluid Source PLEURAL; Body Fluid WBC 265 /mm^3; Color of fluid Yellow (COLORLESS)
[2021-09-11] MEDS: BUMETANIDE 1 MG TABLET PO SCH ×2 (14:42→20:47)
[2021-09-11] MEDS: DOCUSATE NA 100 MG CAP PO SCH (20:46)
[2021-09-11] MEDS: MELATONIN 3 MG TABLET PO SCH (20:53)
--- NOTE | 2021-09-12 00:49 | CON ---
Date of Consultation: 09/10/2021 Brief History Of Present Illness: Patient is an 81-year-old female with hypertension, hypo thyroidism, CHF, atrial fibrillation, and a resident of a detention, who presents to the hospital with increasing weakness and some shortness of breath on 09/07/2021. There was some hypoxemia associ ated with this. I am consulted to see the patient for possible placement of a thoracostomy tube depe nding on her progression and response to treatment. She complained of only shortness of breath durin g my examination, but was saturating at 98% on nasal cannula 2 L/minute. Past Medical History: Significant for breast cancer, CHF, hypertension, hypothyroidism, COPD, hemoch romatosis, atrial fibrillation. Past Surgical History: Includes right breast lumpectomy, cholecystectomy, pelvic organ prolapse surg [place]. Psychosocial History: She lives at [facility]. She denies smoking, alcohol, recreational drug use. She lives in a detention. Allergies: TO CIPRO AND NITROFURANTOIN. Home Medications: Include acetaminophen, Tylenol 3, liquid packet, amiodarone, ascorbic a melissa, Tessalon Perles, cetrizine, Colace, Lasix, ipratropium bromide, Synthroid, Maalox, melatonin, mu ltivitamins, omeprazole, KCl, promethazine, , zinc sulfate, acetazolamide. Review of Systems: Ten-point review of systems other than HPI, denies other than some occasional foot pain bilaterally. Physical Examination: General: She is awake and alert. She is conversive and has low-grade confusion. HEENT: She is, otherwise, normocephalic. Her sclerae are anicteric. Mucosa membranes are moist. O ropharynx clear. Nasal cannula in place with oxygen currently flowing at 2 L/minute. Neck: Supple without JVD. Chest: Normal expansion and excursion. Cardiovascular: Regular rate, irregular rhythm. Pulmonary: Clear to auscultation on left, right is diminished. Abdomen: Soft. Extremities: No clubbing, cyanosis, but there is bilateral lower extremity edema. There is a Saldana catheter in place. Laboratory Data: She had laboratory exam, which revealed her white blood cell count was 3.6, hemoglo bin is 10.2 over hematocrit of 31.4, platelet count was 58. Her coags showed a PT 10.9, INR 0.99. C hemistry: Her sodium 143, potassium 3.8, chloride 108, carbon dioxide 35, BUN 43, creatinine 1.4, gl ucose was 160. Phosphorus was 4.7 on 09/07. Magnesium was 2.3 on 09/07. Troponin was 109 and 99.4 on subsequent check on 09/07. She had a COVID screen, which was negative. She had an abdomen and pe lvis CT on 09/09, which was officially read as a 3.5 cm posterior right renal mass, shows imaging laurel racteristics most consistent with a cyst, which has enlarged since 2016. Isodense masses and pyelone phritis are not excluded on a noncontrast study. Urinary bladder was fully contracted on a Saldana cat heter limiting assessment, pronounced anasarca pattern with fluid retention throughout the subcutaneo us fatty tissue at lower chest, abdomen, and pelvis. Small amount of ascites present in the peritone al cavity. She had a chest x-ray performed as well on 09/10 officially read as pulmonary edema with bilateral pleural effusions similar to 09/06/2021. Assessment And Plan: This is an 81-year-old female who comes in with bilateral pleural effusions, ri ght appears greater than left. 1.Continue medical management. 2.Continue oxygen supplementation and respiratory therapy. 3.Patient is due to have thoracentesis. If thoracentesis is unsuccessful at improving her symptoms or she has recurrence of fluid, we will consider thoracostomy tube drainage at this time. I have explained risks, benefits, and alternatives of the above stated plan. Patient agrees to proceed as indicated. DULCE/ALDO Voice ID: [id number] Report ID: [id number]
[2021-09-12 05:28] LABS: Absolute Lymphocytes (CBC) 0.3 K/uL (0.7-4.9); Hematocrit 38.1 % (36.0-45.0); Lymphocytes % 5.5 % (15.3-44.8); MPV 9.2 fL (7.6-11.3); RBC Red Blood Cell Count 3.11 M/uL (3.86-4.86)
[2021-09-12] MEDS: LEVOTHYROXINE SOD 0.112 MG TAB PO SCH (05:41)
[2021-09-12 05:49] LABS: Albumin 3.1 g/dL (3.4-5.0); Bilirubin Total 0.5 mg/dL (0.2-1.0); Potassium 3.5 mmol/L (3.5-5.1); Protein, Total 6.4 g/dL (6.4-8.2)
--- NOTE | 2021-09-12 06:13 | PN ---
Date of Progress Note: 09/09/2021 Ms. Gonzáles was admitted for atrial fibrillation, COPD, UTI, congestive heart failure. Has been on am iodarone intermittently for her atrial fibrillation. Echocardiogram showed pulmonary hypertension, e jection fraction 63%, decreased left ventricular compliance, dilated right atrium and right ventricle secondary to pulmonary hypertension. We will continue her present regimen. Needs to be on anticoag ulation. No further cardiac workup necessary at this time. I will be available for questions if the need arises. YANNICK/ALDO Voice ID: [id number] Report ID: [id number]
[2021-09-12] MEDS: PANTOPRAZOLE 40MG TABLET PO SCH (07:30)
[2021-09-12] MEDS: IPRATROPIUM BROM 0.5MG/2.5ML IH SCH ×3 (08:00→19:33)
[2021-09-12] MEDS: AMOX/K CLAV 500 MG TAB PO SCH ×2 (08:00→17:00)
--- NOTE | 2021-09-12 08:48 | P.PN ---
Subjective Date of Service: 09/12/21 Primary Care Provider: Segundo Chief Complaint: Weakness, CHF, Hypoxia Subjective: Improving (Status post thoracocentesis yesterday) Physical Examination - Vital Signs Temperature: 97.5 F Blood Pressure: 113/66 Pulse: 99 Respirations: 17 Pulse Ox (%): 91 - Studies Microbiology Data (last 24 hrs): 09/06/21 21:20 Blood - Blood Aerobic Blood Culture - Final No growth in 5 days. 09/06/21 21:20 Blood - Blood Anaerobic Blood Culture - Final No growth in 5 days. 09/06/21 21:00 Blood - Blood Aerobic Blood Culture - Final No growth in 5 days. 09/06/21 21:00 Blood - Blood Anaerobic Blood Culture - Final No growth in 5 days. Assessment And Plan Physician Review: Patient Assessed, Agree with Above Assessment and Plan Physician Review Additional Text: - Physical Exam General: Alert, In no apparent distress, on BiPAP Respiratory: Diminished Cardiovascular: Regular rate/rhythm, Normal S1 S2, Edema (2+ pitting edema extending to thighs bilaterally ) Gastrointestinal: Normal bowel sounds, Soft and benign, No tenderness Integumentary: Erythema (bilateral lower extremities), Warmth Neurological: Normal speech, Normal tone, Sensation intact, Normal affect Urinary: Saldana catheter Assessment and Plan - Problems (Diagnosis) (1) Weakness Current Visit: Yes Status: Acute (2) Pleural effusion Current Visit: Yes Status: Acute (3) CHF (congestive heart failure) Current Visit: Yes Status: Chronic Qualifiers: Heart failure type: diastolic Heart failure chronicity: acute on chronic Qualified Code(s): I50.33 - Acute on chronic diastolic (congestive) heart failure (4) Anasarca Current Visit: Yes Status: Acute (5) EMILIO (acute kidney injury) Current Visit: Yes Status: Acute (6) Atrial fibrillation Current Visit: No Status: Chronic (7) COPD (chronic obstructive pulmonary disease) Current Visit: No Status: Chronic Qualifiers: COPD type: unspecified COPD Qualified Code(s): J44.9 - Chronic obstructive pulmonary disease, unspecified (8) HX: breast cancer Current Visit: No Status: Chronic (9) Hypertension Current Visit: No Status: Chronic Qualifiers: Hypertension type: primary hypertension Qualified Code(s): I10 - Essential (primary) hypertension (10) Hypothyroidism Current Visit: No Status: Chronic Qualifiers: Hypothyroidism type: unspecified Qualified Code(s): E03.9 - Hypothyroidism, unspecified -Sacral decubitus wound infection with MRSA and Proteus mirabilis Right heel decubitus ulcer with Enterococcus faecalis/MRSA/stenotroophomonas M altiphilia -Moderate right pleural effusionstatus post -Small left pleural effusionstable - Plan -Slowly improving hypoxia, continue to wean off supplemental O2 Elevated serum bicarb today, increase acetazolamide to 500 twice daily, dose potassium today to keep serum potassium above 4 We will start slow reduction in diuretic dosage Follow-up repeat chest x-ray in a.m. since post thoracocentesis and diuresis Start Bactrim/Augmentin for decubitus ulcer wound infections Continue spironolactone Improved blood pressure, continue midodrine Echo shows normal EF of 60% with mild TR, continue to follow Off steroid since no evidence of COPD exacerbation No evidence of infection, will DC Zosyn Negative blood culture to date Stable creatinine at 1.3, continue hold nephrotoxic drugs. Follow with Bactrim use -monitor and replete electrolytes as necessary -Heparin for VTE ppx Discharge Plan: [facility] Living Plan to discharge in: in am 09/12/21 08:44
[2021-09-12] MEDS ORDERED: acetaZOLAMIDE 250 MG TAB PO SCH (09:00)
[2021-09-12] MEDS ORDERED: AMOX/K CLAV 500 MG TAB PO SCH ×2 (09:00→17:00)
[2021-09-12] MEDS: MIDODRINE HCL 5 MG TABLET PO SCH ×3 (09:00→21:00)
[2021-09-12] MEDS: BUMETANIDE 1 MG TABLET PO SCH ×2 (09:00→21:00)
[2021-09-12] MEDS: AMIODARONE HCL 200 MG TAB PO SCH ×2 (09:00→21:00)
[2021-09-12] MEDS ORDERED: SMZ./TMP. 800/160 MG TABLET PO SCH (09:00)
[2021-09-12] MEDS: POTASSIUM CL SA 10 MEQ TAB PO SCH (09:00)
[2021-09-12] MEDS: ZINC SULFATE 220 MG CAP PO SCH (09:00)
[2021-09-12] MEDS ORDERED: POTASSIUM CL SA 10 MEQ TAB PO ONE (09:00)
--- NOTE | 2021-09-12 09:12 | RAD REPORT ---
EXAM DESCRIPTION: CT - Ct Stroke Brain Wo Cont - 09/12/2021 9:06 am CLINICAL HISTORY: code stroke Headache, drowsiness COMPARISON: Head Brain Wo Cont dated 07/26/2020 TECHNIQUE: All CT scans are performed using dose optimization technique as appropriate and may inclu de automated exposure control or mA/KV adjustment according to patient size. FINDINGS: No intracranial hemorrhage, hydrocephalus or extra-axial fluid collection.Mild brain atrop hy.No areas of brain edema or evidence of midline shift. The paranasal sinuses and mastoids are clear. The calvarium is intact. IMPRESSION: No acute intracranial abnormality.
[2021-09-12 09:56] LABS: Arterial Blood Carboxyhemoglob 1.9 % (0-1.5); Blood Gas Oxyhemoglobin 72.2 % (94-97); Blood O2 Saturation 74.6 % (92-98.5)
[2021-09-12 10:20] LABS: Absolute Lymphocytes (CBC) 0.3 K/uL (0.7-4.9); Protime INR 0.97
[2021-09-12 10:25] LABS: Potassium 3.6 mmol/L (3.5-5.1)
[2021-09-12 10:40] LABS: Hematocrit 39.4 % (36.0-45.0); Lymphocytes % 5.8 % (15.3-44.8); MPV 9.6 fL (7.6-11.3); RBC Red Blood Cell Count 3.24 M/uL (3.86-4.86)
[2021-09-12] MEDS: NA CHLORIDE 0.9% 1,000 ML IV SCH (12:09)
[2021-09-12 12:40] LABS: Anisocytosis 1+; Blood Morphology Comment NOTED (NOT SEEN); Macrocytosis 3+; Platelet Estimate DECR; White Blood Cell Scan OK (OK)
[2021-09-12 12:41] LABS: Hypochromasia 1+; Poikilocytosis 1+; Stomatocytes 1+; Teardrop Cell 1+
[2021-09-12] MEDS ORDERED: NA CHLORIDE 0.9% 250 ML IV ONE (13:00)
--- NOTE | 2021-09-12 14:45 | RAD REPORT ---
EXAM DESCRIPTION: Farru[facility] Single View09/12/2021 2:05 pm CLINICAL HISTORY: Shortness of breath COMPARISON: September 10, 2021 FINDINGS: Moderate bilateral pulmonary opacities mildly worsened. Small to moderate pleural effusions and cardiomegaly. IMPRESSION: Mild worsening in CHF
[2021-09-12] MEDS: HYDROCORTISONE SUC 100 MG INJ IV SCH ×2 (15:17→22:54)
[2021-09-12 16:05] LABS: Potassium 3.7 mmol/L (3.5-5.1)
[2021-09-12] MEDS: DOCUSATE NA 100 MG CAP PO SCH (21:00)
[2021-09-12] MEDS: MELATONIN 3 MG TABLET PO SCH (21:00)
[2021-09-13] MEDS: LEVOTHYROXINE SOD 0.112 MG TAB PO SCH (05:39)
[2021-09-13 06:02] LABS: Absolute Lymphocytes (CBC) 0.3 K/uL (0.7-4.9)
[2021-09-13 06:05] LABS: Hematocrit 34.9 % (36.0-45.0); Lymphocytes % 8.2 % (15.3-44.8); MPV 8.9 fL (7.6-11.3); RBC Red Blood Cell Count 2.92 M/uL (3.86-4.86)
[2021-09-13 06:12] LABS: Albumin 2.7 g/dL (3.4-5.0); Bilirubin Total 0.5 mg/dL (0.2-1.0); Potassium 4.2 mmol/L (3.5-5.1); Protein, Total 5.6 g/dL (6.4-8.2)
[2021-09-13] MEDS: HYDROCORTISONE SUC 100 MG INJ IV SCH (06:35)
[2021-09-13] MEDS: NA CHLORIDE 0.9% 1,000 ML IV SCH (06:35)
[2021-09-13 06:59] LABS: MPV 9.8 fL (7.6-11.3); RBC Red Blood Cell Count 2.89 M/uL (3.86-4.86)
[2021-09-13 07:30] LABS: Platelet Estimate DECR; White Blood Cell Scan OK (OK)
[2021-09-13] MEDS: PANTOPRAZOLE 40MG TABLET PO SCH (07:30)
[2021-09-13 07:31] LABS: Anisocytosis 1+; Basophilic Stippling 1+; Blood Morphology Comment NOTED (NOT SEEN); Macrocytosis 2+
[2021-09-13] MEDS: AMOX/K CLAV 500 MG TAB PO SCH (08:00)
[2021-09-13] MEDS: IPRATROPIUM BROM 0.5MG/2.5ML IH SCH (08:02)
[2021-09-13] MEDS ORDERED: D5W 1,000 ML IV SCH (09:00)
[2021-09-13] MEDS: ZINC SULFATE 220 MG CAP PO SCH (09:00)
[2021-09-13] MEDS: AMIODARONE HCL 200 MG TAB PO SCH (09:00)
[2021-09-13] MEDS: BUMETANIDE 1 MG TABLET PO SCH (09:00)
[2021-09-13] MEDS: MIDODRINE HCL 5 MG TABLET PO SCH ×2 (09:00→14:00)
[2021-09-13] MEDS: POTASSIUM CL SA 10 MEQ TAB PO SCH (09:00)
[2021-09-13 09:04] LABS: Arterial Blood Carboxyhemoglob 1.5 % (0-1.5); Blood O2 Saturation 97.7 % (92-98.5)
[2021-09-13 09:46] VITALS: TEMP 97.8
[2021-09-13] MEDS ORDERED: MORPHINE 2 MG/ML SYR IV PRN (11:00)
[2021-09-13 12:11] VITALS: O2SAT 85
[2021-09-13 13:55] VITALS: BP 133/90
--- NOTE | 2021-09-13 14:41 | P.PN ---
Subjective Date of Service: 09/13/21 Primary Care Provider: Segundo Chief Complaint: Weakness, CHF, Hypoxia Subjective: New changes, Worsening (Overnight patient continued to worsen, still persistently elevated PCO2 despite of BiPAP since the last 18 hours. Patient now with intermittent hypotension Family discussed with a but overall poor prognosis and they are agreeable to option of comfort care/palliative) Physical Examination - Vital Signs Temperature: 97.8 F Blood Pressure: 133/90 Pulse: 113 Respirations: 30 Pulse Ox (%): 78 Assessment And Plan Physician Review: Patient Assessed, Agree with Above Assessment and Plan Physician Review Additional Text: - Physical Exam General: Drowsy but conversant, on BiPAP Respiratory: Diminished Cardiovascular: Regular rate/rhythm, Normal S1 S2, Edema (2+ pitting edema extending to thighs bilaterally ) Gastrointestinal: Normal bowel sounds, Soft and benign, No tenderness Integumentary: Erythema (bilateral lower extremities), Warmth Neurological: Drowsy, Urinary: Saldana catheter Assessment and Plan - Problems (Diagnosis) (1) Weakness Current Visit: Yes Status: Acute (2) Pleural effusion Current Visit: Yes Status: Acute (3) CHF (congestive heart failure) Current Visit: Yes Status: Chronic Qualifiers: Heart failure type: diastolic Heart failure chronicity: acute on chronic Qualified Code(s): I50.33 - Acute on chronic diastolic (congestive) heart failure (4) Anasarca Current Visit: Yes Status: Acute (5) EMILIO (acute kidney injury) Current Visit: Yes Status: Acute (6) Atrial fibrillation Current Visit: No Status: Chronic (7) COPD (chronic obstructive pulmonary disease) Current Visit: No Status: Chronic Qualifiers: COPD type: unspecified COPD Qualified Code(s): J44.9 - Chronic obstructive pulmonary disease, unspecified (8) HX: breast cancer Current Visit: No Status: Chronic (9) Hypertension Current Visit: No Status: Chronic Qualifiers: Hypertension type: primary hypertension Qualified Code(s): I10 - Essential (primary) hypertension (10) Hypothyroidism Current Visit: No Status: Chronic Qualifiers: Hypothyroidism type: unspecified Qualified Code(s): E03.9 - Hypothyroidism, unspecified -Sacral decubitus wound infection with MRSA and Proteus mirabilis Right heel decubitus ulcer with Enterococcus faecalis/MRSA/stenotroophomonas Maltiphilia -Moderate right pleural effusionstatus post thoracocentesis -Small left pleural effusionstable - Plan 09/13-Since persistent and worsening hypercapnic respiratory failure, trending low blood pressure and pancytopenia, poor overall prognosis discussed with family Family agreeable to palliative care Will take patient off BiPAP, start comfort care measures Will consult case management for inpatient hospice 09/14 slowly improving hypoxia, continue to wean off supplemental O2 Elevated serum bicarb today, increase acetazolamide to 500 twice daily, dose potassium today to keep serum potassium above 4 We will start slow reduction in diuretic dosage Follow-up repeat chest x-ray in a.m. since post thoracocentesis and diuresis Start Bactrim/Augmentin for decubitus ulcer wound infections Continue spironolactone Improved blood pressure, continue midodrine Echo shows normal EF of 60% with mild TR, continue to follow Off steroid since no evidence of COPD exacerbation No evidence of infection, will DC Zosyn Negative blood culture to date Stable creatinine at 1.3, continue hold nephrotoxic drugs. Follow with Bactrim use -monitor and replete electrolytes as necessary -Heparin for VTE ppx Discharge Plan: Long-Term Plan to discharge in: in am 09/12/21 08:44 09/13/21 14:39 Time Spent Managing PTS Care (In Minutes): 55
--- NOTE | 2021-09-13 16:44 | P.DS ---
Admission Date: 09/06/21 Discharge Date: 09/13/21 Primary Care Provider: Segundo Disposition: HOSPICE-MEDICAL FACILITY Reason for Admission: Weakness, CHF, Hypoxia Brief History of Present Illness: Reason for admission: Weakness, CHF, Hypoxia History of Present Illness: Patient is an 81-year-old female with hypertension, hypothyroidism, CHF, afib (not on anticoagulation) who is a resident at [facility] who presented to the ED via EMS with complaints of increasing weakness. Lab work-up revealed creatinine 1.53, WBC 3.1, hemoglobin 10, troponin 119, BNP 1 0,000, Pro-Rodolfo 0.2. Chest x-ray showed bilateral pleural effusions with right base infiltrate and/or atelectasis. Prominent heart, vasculature, and lung markings could indicate concurrent mild failure or volume overload. Patient does have swelling in LE up to thighs. She was given breathing treatments, Zosyn, Solu-Medrol, and Lasix in the ED. Upon my assessment, patient reports she is just feeling very weak and tired and mild shortness of breath. We will admit patient for further evaluation and treatment. - Past Medical/Surgical History Diabetic: No -: Breast Cancer -: CHF -: Hypertension -: Hypothyroidism -: COPD -: Hemachromatosis -: Afib -: Right breast lumpectomy -: Cholecystectomy -: pelvic organ prolapse surgery Hospital Course: Hospital course 81-year-old female with COPD, admitted for worsening shortness of breath with hypoxic respiratory failure. Patient was requiring intermittent BiPAP but shortness of breath gradually worsening during hospital course. She was aggressively diuresed to achieve weaning off to nasal cannula O2. Patient had right thoracocentesis done with 600 cc fluid removal but has shortness of breath still continue to progressively worsen after a transient period of improvement. Repeated imaging shows no pneumothorax. Patient started to retain CO2 with development of hypercapnic respiratory failure with altered mental status worsening. She was placed on BiPAP with minimal change in oxygenation as well as CO2 levels. After extensive discussion with family given overall poor prognosis. Patient has been discharged to hospice today for comfort measures. Her sacral and heel ulcer grew multiple organisms as noted above Vital Signs/Physical Exam: Temp Pulse Resp BP Pulse Ox 97.8 F 113 H 30 H 133/90 78 L 09/13/21 14:41 09/13/21 14:41 09/13/21 14:41 09/13/21 14:41 09/13/21 14:41 General: Severe distress, Delirious HEENT: Atraumatic, Normocephalic, PERRLA Neck: 2+ carotid pulse no bruit, JVD not distended Respiratory: Expiratory wheezes, Rhonchi/gurgles Musculoskeletal: No clubbing, No swelling Laboratory Data at Discharge: WBC 2.9 K/uL (4.3-10.9) L D 09/13/21 06:45 Hgb 10.8 g/dL (12.0-15.0) L 09/13/21 06:45 Hct 35.0 % (36.0-45.0) L 09/13/21 06:45 Plt Count 32 K/uL (152-406) L* 09/13/21 06:45 PT 10.7 SECONDS (9.5-12.5) 09/12/21 09:13 INR 0.97 09/12/21 09:13 Sodium 150 mmol/L (136-145) H 09/13/21 05:34 Potassium 4.2 mmol/L (3.5-5.1) 09/13/21 05:34 BUN 34 mg/dL (7-18) H 09/13/21 05:34 Creatinine 1.23 mg/dL (0.55-1.3) 09/13/21 05:34 Glucose 129 mg/dL (74-106) H 09/13/21 05:34 Phosphorus 4.7 mg/dL (2.5-4.9) 09/07/21 03:35 Magnesium 2.6 mg/dL (1.8-2.4) H 09/13/21 11:12 Total Bilirubin 0.5 mg/dL (0.2-1.0) 09/13/21 05:34 AST 10 U/L (15-37) L 09/13/21 05:34 ALT 38 U/L (12-78) 09/13/21 05:34 Alkaline Phosphatase 71 U/L (45-117) 09/13/21 05:34 Home Medications: Acetaminophen [Pain Relief] 650 mg PO Q4HP PRN 09/07/21 Acetaminophen with Codeine [Acetaminophen-Cod #3 Tablet] 1 each PO Q6HP PRN 09/07/21 Amino Acids/Protein Hydr/Fiber [Pro-Stat Renal Care Liquid Pkt] 30 ml PO BID 09/07/21 Amiodarone HCl [Cordarone Tab] 200 mg PO DAILY 09/07/21 Ascorbic Acid [Vitamin C] 500 mg PO BID 09/07/21 Benzonatate [Tessalon Perle] 100 mg PO TIDP PRN 09/07/21 Cetirizine HCl 10 mg PO DAILY 09/07/21 Docusate [Colace Cap] 100 mg PO BEDTIME 09/07/21 Furosemide [Lasix] 40 mg PO DAILY 09/07/21 Ipratropium [place] 0.2 mg IH TID 09/07/21 Levothyroxine [Synthroid] 112 mcg PO [id number] 09/07/21 Mag Hydrox/Al Hydrox/Simeth [Maalox Plus X-Strength Susp] 30 ml PO Q6HP PRN 09/07/21 Melatonin 6 mg PO BEDTIME 09/07/21 Multivitamin with Minerals [One Daily Plus Minerals] 1 each PO DAILY 09/07/21 Omeprazole 20 mg PO DAILY 09/07/21 Potassium Chloride [Micro-K] 10 meq PO DAILY 09/07/21 Promethazine HCl 12.5 mg PO Q6HP PRN 09/07/21 Sodium Chloride [Saline Nose [place]] 1 spray NS Q4HP PRN 09/07/21 Tamsulosin HCl 1 cap PO DAILY 09/07/21 Zinc Sulfate [Zinc Sulfate*] 220 mg PO DAILY 09/07/21 acetaZOLAMIDE [Acetazolamide] 250 mg PO BID 09/07/21 Followup: Unknown,U [Primary Care Provider] -
--- NOTE | 2021-09-13 18:00 | EKG ---
Test Date: 2021-09-12 Test Time: 09:20:42 American Sign Language Interpreter: JOSELINE MEASUREMENT RESULTS: Intervals: Rate: 119 MT: QRSD: 68 QT: 282 QTc: 396 [place]: P: MT: QRS: 86 T: 254 INTERPRETIVE STATEMENTS: Atrial fibrillation with rapid ventricular response Low voltage QRS Septal infarct, age undetermined Abnormal ECG Compared to ECG 09/06/2021 21:41:54 Myocardial infarct finding now present Right-axis deviation no longer present T-wave abnormality no longer present Electronically Signed On 09-13-21 17:58:26 CDT by Keith Miller
--- NOTE | 2021-09-13 21:13 | RAD REPORT ---
EXAM DESCRIPTION: US - Thoracentesis w/ US Guide - 09/11/2021 10:03 am CLINICAL HISTORY: Pleural effusion. RIGHT PLEURAL EFFUISON , HYPOXIA COMPARISON: Brst,Preop NL Wire Init w/Guid dated 05/24/2015 FINDINGS: Preoperative diagnosis: Right pleural effusion Post operative diagnosis: Same Conscious Sedation: None. Estimated blood loss: Minimal Specimens:A small volume of fluid was sent for requested lab studies. The patient was placed in the upright recumbent position and the right posterior chest was prepped an d draped in the usual sterile fashion. 1% Lidocaine was infiltrated into the soft tissues for local anesthesia. Under sonographic guidance, a thoracentesis needle and 6 [place] catheter was advanced in to the right pleural space. Fluid was aspirated. Samples were sent to pathology for requested analysi s. The patient tolerated the procedure without immediate complication and transferred to the floor in stable condition. IMPRESSION: Successful ultrasound-guided thoracentesis as detailed.
[2021-09-16 06:09] LABS: LD, PLEURAL FLUID 40 U/L; TOTAL PROTEIN, PLEURAL FLUID <3.0 g/dL
[2021-09-17 13:52] LABS: ALBUMIN, PLEURAL FLUID 1.1 g/dL
== END 2021-09-13 15:04 | disposition hospice, inpatient (51) | DRG 291 ==
LOC: ER 19:46 → ERHOLD 22:19 → 2ND 09-07 15:23
PROVIDERS: ADMIT Hospitalist; ATTEND Hospitalist
PROC: 5A09457 Assistance with Respiratory Ventilation, 24-96 Consecutive Hours, Continuous Positive Airway Pressure (ICD-10-PCS; 2021-09-07)
PROC: 0W993ZX Drainage of Right Pleural Cavity, Percutaneous Approach, Diagnostic (ICD-10-PCS; principal; 2021-09-11)
DX: I11.0 Hypertensive heart disease with heart failure (principal); L89.153 Pressure ulcer of sacral region, stage 3; I50.33 Acute on chronic diastolic (congestive) heart failure; J18.9 Pneumonia, unspecified organism; J96.02 Acute respiratory failure with hypercapnia; N17.9 Acute kidney failure, unspecified; I48.20 Chronic atrial fibrillation, unspecified; D61.818 Other pancytopenia; J44.0 Chronic obstructive pulmonary disease with (acute) lower respiratory infection; J91.8 Pleural effusion in other conditions classified elsewhere; J96.11 Chronic respiratory failure with hypoxia; E03.9 Hypothyroidism, unspecified; I27.20 Pulmonary hypertension, unspecified; K21.9 Gastro-esophageal reflux disease without esophagitis; L08.89 Other specified local infections of the skin and subcutaneous tissue; B96.4 Proteus (mirabilis) (morganii) as the cause of diseases classified elsewhere; B95.62 Methicillin resistant Staphylococcus aureus infection as the cause of diseases classified elsewhere; L89.619 Pressure ulcer of right heel, unspecified stage; L08.9 Local infection of the skin and subcutaneous tissue, unspecified; B95.2 Enterococcus as the cause of diseases classified elsewhere; I95.9 Hypotension, unspecified; B96.89 Other specified bacterial agents as the cause of diseases classified elsewhere; Z66 Do not resuscitate; Z85.3 Personal history of malignant neoplasm of breast; Z20.822 Contact with and (suspected) exposure to COVID-19
CPT/HCPCS: 32555; 36415; 51702; 70450; 71045; 74176; 80048; 80053; 80076; 81003; 81015; 82042; 82150; 82550; 82553; 82805; 83605; 83615; 83735; 83880; 84100; 84145; 84157; 84439; 84443; 84484; 85025; 85027; 85610; 87040; 87070; 87077; 87086; 87088; 87186; 87205; 89050; 93005; 93306; 94640; 94660; 94760; 96374; 96375; 97110; 97161; 97530; 99285; J1720; J1940; J2270; J2543; J2920; J2930; J7030; J7050; J7512; U0003

== ENCOUNTER 2021-09-13 14:50 | Inpatient (IN) | payer OTHER ==
--- OUTSIDE RECORDS SUMMARY | 2021-09-13 15:38 | XMS REPORT | Continuity of Care Document ---
:1940 Author Organization [facility] t Address [address] [place] [address] Care Team Providers Name Role Phone MARBELLA HANKS Primary Care Physician Unavailable MS RG Attending Clinician Unavailable MARBELLA HANKS Attending Clinician Unavailable MS RG Admitting Clinician Unavailable MARBELLA HANKS Admitting Clinician Unavailable Payers Payer Name Policy Type Policy Number Effective Date Expiration Date S ource 0500 [id number] 1959 00:00:00 0100 [id number] 1959 00:00:00 MEDICARE A B [id number] 2003 00:00:00 [facility] [id number] 2021 HEALTHCARE 00:00:00 Problems This patient has [...] Facility Department ID 2021-08-02 Inpatient Carmelo DIEZ [facility] [id number] [facility] 10:15:00 [facility] 2021-07-11 2021-07-18 Inpatient MARY CHRISTENSEN [facility] Neurology [id number] [facility] 00:14:00 15:30:00 Results Test Description Test Time Test Comments Results Result Comments Source CYTOLOGY 2021-07-18 Medical Cytology 15:09:25 Report Case: [id number] Authorizing Provider: Mickey Alba MD Collected: 07/16/2021 03:37 PM Ordering Location: [address] Med/Surg Received: 07/17/2021 08:18 AM Pathologist: Vicky oSuza MD Specimen: Pleural, Right RIGHT PLEURAL FLUID (CYTOSPINS AND CELL BLOCK): - NEGATIVE FOR MALIGNANCY Signing Pathologist Direct Phone Line: [phone] ically signed by Vicky Souza MD on 07/18/2021 at 3:09 [id number], [id number] pleural effusion, altered mental status, hypercarbic respiratory failure.RIGHT PLEURAL FLUIDReceived 350 mls gelatinous aissatou fluid; prepared 4 cytospins and cell block(A2) - the cell block was fixed in formalin at 4:30 pm on 07/17/2021erformed. [facility], [facility] [place] [address], Bixhnp [facility], Department of Pathology, [address] [place] [address], [facility], [facility] of [facility], [address] [place] [address], POCT-GLUCOSE METER 2021-07-18 11:26:53 Test Item Value Reference Range Interpretation Comme nts POC-GLUCOSE METER (BEAKER) 189 mg/dL 70-110 H : Notified RN/MD: TESTED AT [facility] 1317 (test code = 1538) VAIL GEOFF Breaux [facility] [address]: Commercial Makeup Artist/Techni сергей ID = [id number] for Bobby Ortega BODY FLUID CULTURE + GRAM [id number] 10:35:28 Test Item Value Reference Range Interpretation Comments CULTURE (BEAKER) (test No growth code = 1095) GRAM STAIN RESULT No White blood cells (BEAKER) (test code = seen 1123) GRAM STAIN RESULT No organisms seen (BEAKER) (test code = 38467) SARS-COV2/RT-PCR ([facility])2021-07-18 09:57:45 Test Item Value Reference Range Interpretation Comments SARS-COV2/RT-PCR Negative Negative The SARS-Co V-2 target (test code = nucleic acids a re not [id number]) detected in thi s specimen. Negative result [...] revoked sooner. Fact Sheet for Healthcare Providers: https://www.ImpulseSave/Documents/Xpert%20Xpress%20SARS%20CoV-2/Fact%20Sheets/302-3802%20SARS-COV -2%20HEALTHCARE%20PROVIDERS%20FACT%20SHEET.pdf Fact Sheet for Healthcare Patients: https://www.StepOut/Documents/Xpert %20Xpress%20SARS%20CoV-2/Fact%20Sheets/302-3801%34CPSU-RVH-8%20PATIENT%20FACT%20 SHEET.pdfBLOOD GAS, [id number] 09:25:24 Test Item Value Reference Range Interpretation [...] (BEAKER) (test code = 1819) 36.0 POCT-GLUCOSE [id number] 07:31:09 Test Item Value Reference Range Interpretation Comments POC-GLUCOSE METER 108 mg/dL 70-110 : Notified RN/MD: TESTED (BEAKER) (test code AT [address] = 1538) [facility] [address]: Commercial Makeup Artist/Techni сергей ID = [id number] for Bobby Carmona CBC W/PLT COUNT & AUTO [id number] 05:35:32 Test Item Value Reference Range Interpretation [...] (BEAKER) (test code = 2801) COMPREHENSIVE METABOLIC [id number] 05:34:13 Test Item Value Reference Range Interpretation [...] S NOT APPLICABLE FOR DIALYSIS PATIEN TS. Commercial Makeup Artist ID - NSUVAGIYAOperator ID - NSUVAGIYAOperator ID - NSUVAGIYAOperator ID - NSUVAGIYAOperatorID - NSUVAGIYAOperator ID - NSUVAGIYAOperator ID - NSUVAGIYAOperator ID - NSUVAGIYAOperator ID - NSUVAGIYAOperator ID - NSUVAGIYAOperator ID - NSUVAGIYAOperator ID - NSUVAGIYAOperator ID - NSUVAGIYAOperator ID - NSUVAGIYAOperator ID - NSUVAGIYAOperator ID - NSUVAGIYAOperator ID - [id number] 05:26:28 Test Item Value Reference Range Interpretation Comments MAGNESIUM (BEAKER) (test code = 2.2 mg/dL 1.5-3.0 627) Commercial Makeup Artist ID - NSUVAGIYAOperator ID - NSUVAGIYAOperator ID - NSUVAGIYAOperator ID - [id number] 05:23:05 Test Item Value Reference Range Interpretation Comments PHOSPHORUS (BEAKER) (test code = 2.5 mg/dL 2.5-4.5 604) Commercial Makeup Artist ID - NSUVAGIYAPOCT-GLUCOSE [id number] 20:24:34 Test Item Value Reference Range Interpretation Comments POC-GLUCOSE METER 165 mg/dL 70-110 H : TESTED A T [facility] [address] (BEAKER) (test code [address], = 1538) [facility] [place] [address]: Commercial Makeup Artist/Techni сегрей ID = [id number] for Zuleika Montenegro U/S, ABDOMINAL, [id number] 16:58:00Laterality?->Left Reason for exam:- >moderate Lt pleural effusion Should this be performed at the bedside?- >Yes Labs to be Ordered:->No Labs Needed [facility] : 1940 Sex: FFINAL REPORT TECHNIQUE: Grayscale ultrasound of the left chest. INDICATION: Lt pleural effusion Evaluation. COMPARISON: None. DISCUSSION/IMPRESSION: Small amount of fluid was seen within the base of the left pleural space.Removal of small volume of fluid unlikely to the patient clinically at this time. Signed: Efe Muñoz Verified Date/Time: 07/17/2021 16:58:00 Reading Location: [facility] Radiology Reading Room POCT-GLUCOSE [id number] 16:20:28 Test Item Value Reference Range Interpretation Comments POC-GLUCOSE METER 201 mg/dL 70-110 H : TESTED A T [facility] 1317 (BEAKER) (test code [address], = 1538) [facility] [address]: Commercial Makeup Artist/Techni сергей ID = [id number] for Ali, Aissatou RAD, CHEST, 1 VIEW, NON [id number] 13:04:00Reason for exam:->sob [facility] : 1940 Sex: [...] MDReport Verified Date/Time: 07/17/2021 13:04:03 Reading Location: [facility] Radiology Reading Room POCT-GLUCOSE [id number] 11:17:50 Test Item Value Reference Range Interpretation Comments POC-GLUCOSE METER 205 mg/dL 70-110 H : TESTED A T [facility] 1317 (BEAKER) (test code [address], = 1538) [facility] [address]: Commercial Makeup Artist/Techni сергей ID = [id number] for Ali, Aissatou BODY FLUID CELL COUNT WITH [id number] 09:37:56 Test Item Value Reference Range Interpretation [...] code = 2619) present. Negative for malignancy NVNV-GUCVNCEESSM-5 Vicky Souza 10 (BEAKER) (test M.D. (electronic code = 3584) signature) CONTAINER BODY EDTA Tube FLUID (BEAKER) (test code = 2873) BLOOD GAS, [id number] 09:26:40 Test Item Value Reference Range Interpretation [...] (BEAKER) (test code = 1819) 35.0 POCT-GLUCOSE [id number] 07:57:56 Test Item Value Reference Range Interpretation Comments POC-GLUCOSE METER 100 mg/dL 70-110 : TESTED A T [facility] (BEAKER) (test code [facility] [address], = 1538) [facility] [address]: Commercial Makeup Artist/Techni сергей ID = [id number] for Aissatou Holloway COMPREHENSIVE METABOLIC [id number] 04:30:48 Test Item Value Reference Range Interpretation [...] S NOT APPLICABLE FOR DIALYSIS PATIEN TS. Commercial Makeup Artist ID - ADMINOperator ID - ADMINOperator ID - ADMINOperator ID - ADMINOperator ID - ADMINOperator ID - ADMINOperator ID - ADMINOperator ID - ADMINOperator ID - ADMINOperator ID - ADMINOperator ID- ADMINOperator ID - ADMINOperator ID - ADMINOperator ID - ADMINOperator ID - ADMINOperator ID - ADMI NOperator ID - [id number] 04:23:25 Test Item Value Reference Range Interpretation Comments MAGNESIUM (BEAKER) (test code = 2.3 mg/dL 1.5-3.0 627) Commercial Makeup Artist ID - ADMINOperator ID - ADMINOperator ID - ADMINOperator ID - ADMIN [id number] 04:20:00 Test Item Value Reference Range Interpretation Comments PHOSPHORUS (BEAKER) (test code = 2.2 mg/dL 2.5-4.5 L 604) Commercial Makeup Artist ID - ADMINCBC W/PLT COUNT & AUTO [id number] 04:03:34 Test Item Value Reference Range Interpretation [...] PERCENT (BEAKER) (test code = 2801) POCT-GLUCOSE [id number] 00:36:14 Test Item Value Reference Range Interpretation Comments POC-GLUCOSE METER 120 mg/dL 70-110 H : TESTED A T [facility] [address] (BEAKER) (test code [address], = 1538) [facility] [address]: Commercial Makeup Artist/Techni сергей ID = [id number] for Isha Yoder POCT-GLUCOSE [id number] 20:35:42 Test Item Value Reference Range Interpretation Comments POC-GLUCOSE METER 149 mg/dL 70-110 H : TESTED A T [facility] [address] (BEAKER) (test code [address], = 1538) [place] [address]: Commercial Makeup Artist/Techni сергей ID = [id number] for Prov Isha hilliard POCT-GLUCOSE [id number] 17:31:45 Test Item Value Reference Range Interpretation Comments POC-GLUCOSE METER 198 mg/dL 70-110 H : TESTED A T [facility] [address] (BEAKER) (test code [address], = 1538) [place] [address]: Commercial Makeup Artist/Techni сергей ID = [id number] for Ali, Aissatou LACTATE DEHYDROGENASE (LDH), BODY [id number] 16:14:06 Test Item Value Reference Range Interpretation Comments LACTATE DEHYDROGENASE FLUID (BEAKER) 67 U/L (test code = 634) Absence of reference range indicates that normals have not been defined.Assay performance has not been validated for this type of specimen.Commercial Makeup Artist ID - ADMIN PROTEIN, BODY [id number] 16:13:50 Test Item Value Reference Range Interpretation Comments PROTEIN FLUID (BEAKER) (test code = 2.1 g/dL 579) Absence of reference range indicates that normals have not been defined.Assay performance has not been validated for this type of specimen.Commercial Makeup Artist ID - ADMIN GLUCOSE, BODY [id number] 16:12:05 Test Item Value Reference Range Interpretation Comments GLUCOSE, BODY FLUID (BEAKER) (test 158 mg/dL code = 1528) Absence of reference range indicates that normals have not been defined.Assay performance has not been validated for this type of specimen.Commercial Makeup Artist ID - ADMIN U/S, [id number] 16:01:00Laterality?->RightReason for exam:- >Right pleural effusionLabs to be Ordered:->CytologyLabsto be Ordered:- >Body Fluid Culture (w/Gram Stain, C\T\S)Labs to be Ordered:->Glucose+LDH+ProteinLabs to be Ordered:->Cell Count [facility] : 1940 Sex: FFINAL REPORT Ultrasound guided right thoracentesis Clinical History: Moderate right pleural effusion. Modality: Ultrasound. Sedation: None. Production Machine Operator: To Solano M.D. Fast Food Worker: None. Estimated Blood Loss: 1cc Specimen: 900 [...] MDReport Verified Date/Time: 07/16/2021 16:01:40 Reading Location: [facility] Radiology Reading Room RAD, CHEST, 1 VIEW, NON [id number] 15:46:00Reason for exam:->s/p right thoracentesisShould this be performed at the bedside?->Yes [facility] : 1940 Sex: [...] MDReport Verified Date/Time: 07/16/2021 15:46:20 Reading Location: [facility] Radiology Reading Room BLOOD GAS, [id number] 13:25:52 Test Item Value Reference Range Interpretation [...] 1819) 32.0 RAD, CHEST, 1 VIEW, NON [id number] 11:49:00Reason for exam:->pleural effusionShould this be performed at the bedside?->Yes [facility] : 1940 Sex: [...] the left brachiocephalic vein.Otherwisestable exam. Signed: To Solanoeport Verified Date/Time: 07/16/2021 11:49:55 Reading Location: [facility] Radiology Reading Room POCT-GLUCOSE [id number] 11:40:37 Test Item Value Reference Range Interpretation Comments POC-GLUCOSE METER 143 mg/dL 70-110 H : TESTED A T [facility] 1317 (BEAKER) (test code [address], = 1538) [facility] [address]: Commercial Makeup Artist/Techni сергей ID = [id number] for Misti Henderson BLOOD [id number] 09:34:30 Test Item Value Reference Range Interpretation Comments CULTURE (BEAKER) (test No growth in 5 days code = 1095) POCT-GLUCOSE [id number] 08:57:10 Test Item Value Reference Range Interpretation Comments POC-GLUCOSE METER 126 mg/dL 70-110 H : TESTED A T [facility] [address] (BEAKER) (test code [address], = 1538) [facility] [place] [address]: Commercial Makeup Artist/Techni сергей ID = [id number] for Misti Henderson BLOOD [id number] 07:00:44 Test Item Value Reference Range Interpretation Comments CULTURE (BEAKER) (test No growth in 5 days code = 1095) COMPREHENSIVE METABOLIC [id number] 05:12:21 Test Item Value Reference Range Interpretation [...] S NOT APPLICABLE FOR DIALYSIS PATIEN TS. Commercial Makeup Artist ID - LITOOperator ID - LITOOperator ID - LITOOperator ID - LITOOperator ID - LITOOperator ID - LITOOperator ID - LITOOperator ID - LITOOperator ID - LITOOperator ID - LITOOperator ID - LITOOperator ID - LITOOperator ID - LITOOperator ID - LITOOperator ID - LITOOperator ID - LITOCBC W/PLT COUNT & AUTO [id number] 05:10:07 Test Item Value Reference Range Interpretation [...] 0-0 PERCENT (BEAKER) (test code = 2801) [id number] 05:09:50 Test Item Value Reference Range Interpretation Comments MAGNESIUM (BEAKER) (test code = 2.2 mg/dL 1.5-3.0 627) Commercial Makeup Artist ID - LITOOperator ID - LITOOperator ID - LITOOperator ID - ERICKA [id number] 05:06:18 Test Item Value Reference Range Interpretation Comments PHOSPHORUS (BEAKER) (test code = 1.7 mg/dL 2.5-4.5 L 604) Commercial Makeup Artist ID - LITOPOCT-GLUCOSE [id number] 22:22:04 Test Item Value Reference Range Interpretation Comments POC-GLUCOSE METER 159 mg/dL 70-110 H : TESTED A T [facility] [address] (BEAKER) (test code [address], = 1538) [place] [address]: Commercial Makeup Artist/Techni сергей ID = [id number] for Colin elaine Elsi POCT-GLUCOSE [id number] 17:16:30 Test Item Value Reference Range Interpretation Comments POC-GLUCOSE METER 158 mg/dL 70-110 H : TESTED A T [facility] [address] (BEAKER) (test code [address], = 1538) [place] [address]: Commercial Makeup Artist/Techni сергей ID = [id number] for Saige Grimm POCT-GLUCOSE [id number] 11:52:30 Test Item Value Reference Range Interpretation Comments POC-GLUCOSE METER 222 mg/dL 70-110 H : TESTED A T [facility] [address] (BEAKER) (test code [address], = 1538) [place] [address]: Commercial Makeup Artist/Techni сергей ID = [id number] for Justa Leal POCT-GLUCOSE [id number] 08:15:20 Test Item Value Reference Range Interpretation Comments POC-GLUCOSE METER 143 mg/dL 70-110 H : TESTED A T [facility] [address] (BEAKER) (test code [address], = 1538) [facility] [place] [address]: Commercial Makeup Artist/Techni сергей ID = [id number] for Saige Grimm COMPREHENSIVE METABOLIC [id number] 06:03:12 Test Item Value Reference Range Interpretation [...] S NOT APPLICABLE FOR DIALYSIS PATIEN TS. Commercial Makeup Artist ID - [id number] ID - OWLG18Wdhvebpe ID - JMFZ78Rbpweaqx ID - PXCJ02Oeswnxtr ID - OLAK87Nbthifyn ID - GACY12Ghlwvgyz ID - KNGV82Scrilfnk ID - EXKG28Vvbkkjjj ID - NDOE02Fcmftxpt ID - FMXU34Pwzejutn ID - BILV60Tqdwjokk ID - SKPV11Nlmwtxpo ID - YGFO33Muvzrvff ID - XDPN89Hbwswtyi ID - PNCJ84Kclbtnzg ID - [id number] 06:00:36 Test Item Value Reference Range Interpretation Comments MAGNESIUM (BEAKER) (test code = 2.3 mg/dL 1.5-3.0 627) Commercial Makeup Artist ID - GGIH76Lkblspnn ID - EYWU77Rrfmqvdw ID - WUQC21Lcsvizng ID - ZNMP04 [id number] 05:57:30 Test Item Value Reference Range Interpretation Comments PHOSPHORUS (BEAKER) (test code = 2.7 mg/dL 2.5-4.5 604) Commercial Makeup Artist ID - [id number] W/PLT COUNT & AUTO [id number] 05:41:09 Test Item Value Reference Range Interpretation [...] PERCENT (BEAKER) (test code = 2801) POCT-GLUCOSE [id number] 22:14:57 Test Item Value Reference Range Interpretation Comments POC-GLUCOSE METER 152 mg/dL 70-110 H : TESTED A T [facility] [address] (BEAKER) (test code [facility] [address], = 1538) [place] [address]: Commercial Makeup Artist/Techni сергей ID = [id number] for Colin henry Elsi POCT-GLUCOSE [id number] 16:33:49 Test Item Value Reference Range Interpretation Comments POC-GLUCOSE METER 153 mg/dL 70-110 H : TESTED A T [facility] [address] (BEAKER) [facility] [address], = 15[address]) [place] [address]: Commercial Makeup Artist/Techni сергей ID = [id number] for Jessica Nicole POCT-GLUCOSE [id number] 12:51:29 Test Item Value Reference Range Interpretation Comments POC-GLUCOSE METER 126 mg/dL 70-110 H : TESTED A T [facility] [address] (BEAKER) ([facility] = 1538[facility] [place] [address]: Commercial Makeup Artist/Techni сергей ID = [id number] for Lauren Borja POCT-GLUCOSE [id number] 10:18:34 Test Item Value Reference Range Interpretation Comments POC-GLUCOSE METER 135 mg/dL 70-110 H : TESTED A T [facility] [address] (BEAKER) (test code [address], = 1538) [place] [address]: Commercial Makeup Artist/Techni сергей ID = [id number] for Esther Prince RAD, CHEST, 1 VIEW, NON [id number] 08:39:00Reason for exam:->chf-bipap [facility] : 1940 Sex: [...] 07/14/2021 08:39:33 CBC W/PLT COUNT & AUTO [id number] 06:47:59 Test Item Value Reference Range Interpretation [...] (BEAKER) (test code = 2801) COMPREHENSIVE METABOLIC [id number] 05:12:34 Test Item Value Reference Range Interpretation [...] S NOT APPLICABLE FOR DIALYSIS PATIEN TS. Commercial Makeup Artist ID - JUSTINOperator ID - JUSTINOperator ID - JUSTINOperator ID - JUSTINOperator ID - JUSTINOperator ID - JUSTINOperator ID - JUSTINOperator ID - JUSTINOperator ID - JUSTINOperator ID - JUSTINOperator ID - JUSTINOperator ID - JUSTINOperator ID - JUSTINOperator ID - JUSTINOperator ID - JUSTINOperator ID - [id number] 05:11:37 Test Item Value Reference Range Interpretation Comments MAGNESIUM (BEAKER) (test code = 2.3 mg/dL 1.5-3.0 627) Commercial Makeup Artist ID - JUSTINOperator ID - JUSTINOperator ID - JUSTINOperator ID - ERASMO [id number] 05:08:09 Test Item Value Reference Range Interpretation Comments PHOSPHORUS (BEAKER) (test code = 3.1 mg/dL 2.5-4.5 604) Commercial Makeup Artist ID - JUSTINPOCT-GLUCOSE [id number] 21:44:00 Test Item Value Reference Range Interpretation Comments POC-GLUCOSE METER 131 mg/dL 70-110 H : [facility] (test code [facility], = 1538) [place] [address]: Commercial Makeup Artist/Techni сергей ID = [id number] for Whitney Sullivan POCT-GLUCOSE [id number] 16:34:30 Test Item Value Reference Range Interpretation Comments POC-GLUCOSE METER 150 mg/dL 70-110 H : Notified RN/MD: TESTED (BEAKER) ([facility] [address] = 1538) [place] [address]: Commercial Makeup Artist/Techni сергей ID = [id number] for Bobby Carmona POCT-GLUCOSE [id number] 14:53:54 Test Item Value Reference Range Interpretation Comments POC-GLUCOSE METER 151 mg/dL 70-110 H : [facility] ([facility]ER[facility] (test code [facility], = 1538) [place] [address]: Commercial Makeup Artist/Techni сергей ID = [id number] for Michelle Dobbins COMPREHENSIVE METABOLIC [id number] 04:50:23 Test Item Value Reference Range Interpretation [...] S NOT APPLICABLE FOR DIALYSIS PATIEN TS. Commercial Makeup Artist ID - LITOOperator ID - LITOOperator ID - LITOOperator ID - LITOOperator ID - LITOOperator ID - LITOOperator ID - LITOOperator ID - LITOOperator ID - LITOOperator ID - LITOOperator ID - LITOOperator ID - LITOOperator ID - LITOOperator ID - LITOOperator ID - LITOOperator ID - [id number] 04:45:29 Test Item Value Reference Range Interpretation Comments MAGNESIUM (BEAKER) (test code = 2.2 mg/dL 1.5-3.0 627) Commercial Makeup Artist ID - LITOOperator ID - LITOOperator ID - LITOOperator ID - ERICKA [id number] 04:42:32 Test Item Value Reference Range Interpretation Comments PHOSPHORUS (BEAKER) (test code = 2.5 mg/dL 2.5-4.5 604) Commercial Makeup Artist ID - LITOCBC W/PLT COUNT & AUTO [id number] 04:20:55 Test Item Value Reference Range Interpretation [...] = 2801) RAD, CHEST, 1 VIEW, NON [id number] 03:45:00Reason for exam:->chf-bipap [facility] : 1940 Sex: [...] Stable contours. Additional findings: None. Signed: Lucio Rogerseport Verified Date/Time: 07/13/2021 03:45:56 [id number] 15:04:56 Test Item Value Reference Range Interpretation Comments FIBRINOGEN LEVEL 303 mg/dl 200-400 Final Infor mation ([facility]) (test code = (Auto Output) 658) PROTHROMBIN TIME/[id number] 15:04:56 Test Item Value Reference Range Interpretation Comments PROTIME (BEAKER) 11.4 seconds 9.3-12.0 Final Infor mation (test code = 759) (Auto Outp ut) INR (BEAKER) (test 1.04 See_Comment Final Inf ormation code = 370) (Auto Output) [Automated mess age] The system [employer] generated this result transmitted ref erence range: [...] = 2801) RAD, CHEST, 1 VIEW, NON [id number] 07:35:00Reason for exam:->chf-bipap [facility] : 1940 Sex: FFINAL REPORT Chest AP portable Comparison exam: 07/11/2021 History provided: Congestive failure, BiPAP Heart size magnified by projection and poor inspiration. Patchy airspace disease remains within the right lower lobe with small right pleural effusion. Left lung relatively clear. Normal vascularity. Signed: Yaron Powell MDReport Verified Date/Time: 07/12/2021 07:35:40 Reading Location: [facility] Radiology Reading Room COMPREHENSIVE METABOLIC [id number] 04:37:52 Test Item Value Reference Range Interpretation [...] S NOT APPLICABLE FOR DIALYSIS PATIEN TS. Commercial Makeup Artist ID - TIPT91Zdfatgvy ID - XZLX64Crdmixna ID - WWZU72Eszdpcmz ID - LYIU69Xbycqpkt ID - ADRI76Obdnlcgi ID - UEZI52Upgzmwef ID - AINM23Mgeqycap ID - EDTD69Pxydojwz ID - VDAP84Ahotopcn ID - YJZW61Elgwvkkk ID - NIBT09Uhxbcine ID - PEXF26Feeawiux ID - WHZV21Ivgqysny ID - PPPF13Zzllbjty ID - TOPR78Zdgzggtj ID - [id number] 04:37:28 Test Item Value Reference Range Interpretation Comments MAGNESIUM (BEAKER) (test code = 2.2 mg/dL 1.5-3.0 627) Commercial Makeup Artist ID - AQIY40Kjxybake ID - OPMY30Jzgotqct ID - SGCV56Elzpniju ID - ZNMP04 [id number] 04:34:27 Test Item Value Reference Range Interpretation Comments PHOSPHORUS (BEAKER) (test code = 1.9 mg/dL 2.5-4.5 L 604) Commercial Makeup Artist ID - [id number] W/PLT COUNT & AUTO [id number] 04:30:06 Test Item Value Reference Range Interpretation [...] PERCENT (BEAKER) (test code = 2801) POCT-GLUCOSE [id number] 23:58:21 Test Item Value Reference Range Interpretation Comments POC-GLUCOSE METER 114 mg/dL 70-110 H : TESTED A T [facility] [address] (BEAKER) (test code [address], = 1538) [facility] [address]: Commercial Makeup Artist/Techni сергей ID = [id number] for [facility] Jair mccauley PUL PERF IMAGING, [id number] 16:39:00Unlisted Reason for Exam - Click Yes and Enter Reason Below->No [facility] : 1940 Sex: FFINAL REPORT PROCEDURE: LUNG SCAN - perfusion only CPT CODE: 97951 INDICATION: PE suspected, positive D-Dimer PROTOCOL: 6.4 [...] MDReport Verified Date/Time: 07/11/2021 16:39:09 Reading Location: [address] Reading Room RAD, CHEST, PA OR AP, 1 [id number] 16:12:00 VAT/Infusion Therapy Nurse to Call Radiology Department when patient is readyReason for exam:->s/p picc line [facility]ENTERName: [facility] MER[facility] : 1940 Sex: FFINAL [...] Mckeon Verified Date/Time: 07/11/2021 16:12:11 Reading Location: [facility] Radiology Reading Room POCT-GLUCOSE [id number] 16:04:33 Test Item Value Reference Range Interpretation Comments POC-GLUCOSE METER 122 mg/dL 70-110 H : TESTED A T Mag[employer]L 1317 ([employer]) (test code [address], = 1538) [place] [id number]: Commercial Makeup Artist/Techni сергей ID = [id number] for Aissatou Holloway POCT-GLUCOSE [id number] 11:55:17 Test Item Value Reference Range Interpretation Comments POC-GLUCOSE METER 117 mg/dL 70-110 H : TESTED A T SLSL 1317 ([employer]) (test code [address], = 1538) [facility] [id number]: Commercial Makeup Artist/Techni сергей ID = [id number] for Aissatou Holloway BASIC METABOLIC [id number] 11:36:10 Test Item Value Reference Range Interpretation [...] S NOT APPLICABLE FOR DIALYSIS PATIEN TS. Commercial Makeup Artist ID - [id number] ID - [id number] ID - [id number] ID - [id number] ID - [id number] ID - [id number] ID - [id number] ID - [id number] ID - [id number] ID - [id number] ID - [id number] ID - [id number] [id number] 10:32:08 Test Item Value Reference Range Interpretation [...] failure, acidosis, acute neurological disease, and persistent tachyarrhythmia.Commercial Makeup Artist ID - [id number] DOPPLER LEGS, [id number] 08:27:00Reason for exam:->EVAL FOR DVT [facility] 1940 Sex: FFINAL REPORT Lower extremity [...] Mckeon Verified Date/Time: 07/11/2021 08:27:58 Reading Location: [facility] Radiology Reading Room RAD, CHEST, 1 VIEW, NON [id number] 08:26:00Reason for exam:->PULM EDEMAShould this be performed at the bedside?->Yes [facility] : 1940 Sex: [...] Mckeon Verified Date/Time: 07/11/2021 08:26:50 Reading Location: [facility] Radiology Reading Room BLOOD GAS, [id number] 08:09:50 Test Item Value Reference Range Interpretation [...] (BEAKER) (test code = 1819) 50.0 SARS-COV2/INFLUENZA/RSV [id number] 07:00:01 Test Item Value Reference Range Interpretation Comments SARS-COV2/RT-PCR Negative Negative The SARS-Co V-2 target (test code = nucleic acids a re not 5402279) detected in thi s specimen. Nega tive [...] individuals yousif pected of COVID-19 by the [facility]. INFLUENZA A RT-PCR Negative Negative The Flu A target nucleic (test code = acids are not d etected in 19100524) this specimen. INFLUENZA B RT-PCR Negative Negative The Flu B target nucleic (test code = acids are not d etected in 19100525) this specimen. RSV RT-PCR (test Negative Negative The RSV ta rget nucleic code = 3270582) acids are no t detected in this [...] of the Act.Fact Sheet for Healthcare Providers :https://www.StepOut/Documents/Xpert%20Xpress%20SARS%20CoV-2/Fact%20Sheets/3 02-3902%93GTVL-XNS-9%20HEALTHCARE%20PROVIDERS%20FACT%20SHEET.pdfFact Sheet for Healthcare Patients:https://www.StepOut /Documents/Xpert%20Xpress%20SARS%20Cov-2/Fact%20Sheets/302-3801%07BOLH-CPC-8%20P ATIENT%20FACT%20SHEET.pdfURINALYSIS [id number] 05:10:26 Test Item Value Reference Range Interpretation Comments RBC UA-MANUAL (BEAKER) (test code = 5-10 /HPF 1659) WBC UA-MANUAL (BEAKER) (test code = <5 /HPF 1661) BACTERIA (BEAKER) (test code = 517) Many SQUAMOUS EPITHELIAL MANUAL (BEAKER) 5-10 /HPF (test code = 1663) URINALYSIS WITH MICROSCOPIC IF [id number] 05:03:13 Test Item Value Reference Range Interpretation [...] (test code = 2795) TSH/FREE T4 IF [id number] 03:59:00 Test Item Value Reference Range Interpretation Comments THYROID STIMULATING HORMONE 3.340 uIU/mL 0.350-5.500 (JANNETH) (test code = 772) Commercial Makeup Artist ID - ERICATROPONIN [id number] 02:54:04 Test Item Value Reference Range Interpretation [...] failure, acidosis, acute neurological disease, and persistent tachyarrhythmia.Commercial Makeup Artist ID - [id number] 02:39:18 Test Item Value Reference Range Interpretation Comments PROTIME (JANNETH) 15.9 seconds 9.3-12.0 H (test code = 759) INR (JANNETH) (test 1.49 See_Comment [Automat ed message] code = 370) The system [employer] generated this result transmitted ref erence range: <=5.90. The reference range was not used to int erpret this result as normal/abnormal . RECOMMENDED COUMADIN/WARFARIN INR THERAPY RANGESSTANDARD DOSE: 2.0 - 3.0 Includes: PROPHYLAXIS forvenous thrombosis, systemic embolization; TREATMENT for venous thrombosis and/or pulmonary embolus.HIGH RISK: Target INR is 2.5-3.5 for patients with mechanical heart valves.HEMOGLOBIN [id number] 02:25:17 Test Item Value Reference Range Interpretation Comments HEMOGLOBIN A1C (JANNETH) (test code = 5.6 % 4.3-6.1 368) Commercial Makeup Artist ID - NSROSACOMPREHENSIVE METABOLIC [id number] 02:23:57 Test Item Value Reference Range Interpretation Comments TOTAL PROTEIN 7.5 gm/dL 6.0-8.5 Specimen marklorna dly (BEAKER) (test code = hemoly zed 770) ALBUMIN (BEAKER) 3.7 g/dL 3.5-5.0 Specimen damián rkedly (test code = 1145) hemolyzed ALKALINE [...] S NOT APPLICABLE FOR DIALYSIS PATIEN TS. Commercial Makeup Artist ID - NSUVAGIYAOperator ID - NSUVAGIYAOperator ID - NSUVAGIYAOperator ID - NSUVAGIYAOperatorID - NSUVAGIYAOperator ID - NSUVAGIYAOperator ID - NSUVAGIYAOperator ID - NSUVAGIYAOperator ID - NSUVAGIYAOperator ID - NSUVAGIYAOperator ID - NSUVAGIYAOperator ID - NSUVAGIYAOperator ID - NSUVAGIYAOperator ID - NSUVAGIYAOperator ID - NSUVAGIYAOperator ID - NSUVAGIYA [id number] 02:23:41 Test Item Value Reference Range Interpretation Comments MAGNESIUM (BEAKER) 2.5 mg/dL 1.5-3.0 Specimen markedly (test code = 627) hemolyzed Commercial Makeup Artist ID - NSUVAGIYAOperator ID - NSUVAGIYAOperator ID - NSUVAGIYAOperator ID - NSUVAGIYALACTIC ACID, [id number] 02:23:35 Test Item Value Reference Range Interpretation Comments LACTATE BLOOD 2.33 mmol/L See_Comment HH Specimen moder ately VENOUS (2) (BEAKER) hemolyze d [Automated (test code = 2872) message] The system which generated this result transmit faisal reference range : 0.50-<2.00. The reference range was not used to interpr et this result as normal/abnormal . Commercial Makeup Artist ID - NSUVAGIYAOperator ID - NSUVAGIYAOperator ID - NSUVAGIYAOperator ID - NSUVAGIYALIPID [id number] 02:23:16 Test Item Value Reference Range Interpretation [...] Borderline 130-159 High 160-189 Very High >=190 Commercial Makeup Artist ID - NSUVAGIYAOperator ID - NSUVAGIYAOperator ID - NSUVAGIYA CBC W/PLT COUNT & AUTO [id number] 02:20:12 Test Item Value Reference Range Interpretation [...] 0-0 H PERCENT (BEAKER) (test code = 9201) BLOOD GAS, [id number] 02:15:23 Test Item Value Reference Range Interpretation [...]
[2021-09-13] MEDS ORDERED: MORPHINE 2 MG/ML SYR IV PRN (15:51)
[2021-09-13] MEDS ORDERED: LORazepam 2 MG/ML VIAL IV PRN (15:51)
[2021-09-13] MEDS ORDERED: ONDANSETRON 4 MG/2 ML VIAL IV PRN (15:52)
[2021-09-13] MEDS ORDERED: BISACODYL 10 MG RECTAL SUPP PR PRN (15:53)
[2021-09-13] MEDS ORDERED: ACETAMINOPHEN 650MG/RECT SUPP PR PRN (15:53)
[2021-09-13] MEDS ORDERED: POLYVINYL ALCOHOL 1.4% 15 ML OPTH PRN (15:54)
[2021-09-13] MEDS ORDERED: SCOPOLAMINE HYDROBROMIDE PATCH TD SCH (17:00)
[2021-09-13 18:00] VITALS: BMI 15.6
[2021-09-13] MEDS ORDERED: LORazepam 2 MG/ML VIAL IV SCH (18:00)
[2021-09-13 18:07] VITALS: O2SAT 71
== END 2021-09-13 17:38 | disposition expired | DRG 951 ==
LOC: 2ND 14:50 → UNDOADMIN 15:33 → 2ND 15:33
PROVIDERS: ADMIT Internal Medicine Hematology & Oncology; ATTEND Internal Medicine Hematology & Oncology
DX: Z51.5 Encounter for palliative care (principal); I50.9 Heart failure, unspecified
CPT/HCPCS: J2270